=== PATIENT | female | born 1940 | race Caucasian/White ===

== ENCOUNTER → 2018-07-20 09:57 | Outpatient (CLI) | payer MEDICARE, OTHER, SELFPAY | PROVIDERS: PCP Internal Medicine; Visit Provider Internal Medicine | DX: M81.0 Age-related osteoporosis without current pathological fracture (principal); Z78.0 Asymptomatic menopausal state; G35 Multiple sclerosis; Z82.62 Family history of osteoporosis | CPT/HCPCS: 77080; 77081 ==

== ENCOUNTER 2018-09-03 12:15 | Inpatient (IN) | payer MEDICARE, OTHER, SELFPAY ==
[2018-09-03] VITALS (15 sets, daily range): BP systolic 97–131; BP diastolic 42–79; PULSE 72–81; RESP 13–20; TEMP 36.4–36.9; O2SAT 98–100; BMI 25.8
--- NOTE | 2018-09-03 13:47 | ED.DIZZY ---
HPI - Dizziness <Cathy Kuo PA-C - Last Filed: 09/03/18 21:51> General Chief Complaint: Dizziness Stated Complaint: RECOVERING FROM BROKEN HIP Time Seen by Provider: 09/03/18 13:46 Source: patient and family Mode of arrival: wheelchair Limitations: no limitations History of Present Illness HPI Narrative: This 78-year-old female comes ED at the urging of her family due to gradually worsening dizziness with standing and ambulating. She describes this as a presyncopal sensation. She denies any vertigo. She denies any recent illness, ears symptoms, fever or cough. She denies any chest pain, palpitations, or new dyspnea. She does have a history of heart murmur which she says has been worked up in the past. She states she will feel nauseated when she gets faint, otherwise denies any nausea, abdominal pain and has not had any vomiting. She states that she has had somewhat decreased appetite recently, not sure why, thinks her fluid intake is normal. She states that she also has pain and muscle spasm in her right thigh, this has been problematic since she had a hemiarthroplasty in June due to right hip fracture. She states she has started using her walker in the last 5 days instead of her cane and is having trouble getting to the restroom in time due to her incontinence. She does not think this necessarily contributes to the syncopal sensation other than her being in a hurry. She does not have any symptoms of dizziness when she has been lying or sitting for some time. She states that she has had some ongoing symptoms for at least weeks but worse in the last 4 or 5 days. Of note she has a history of iron deficiency anemia, states she had panendoscopy back in 2013 with no specific findings. She states this was corrected with iron, however she has been off that for about 3 months since her hip fracture in [place]. She does not know whether she was more anemic after surgery. She denies any vomiting blood or blood in the stools or other new complaints on systems review. She would like something for pain for her hip, states her PCP just prescribed [place] for her, has been taking Tylenol as needed at home. She notes that she has had gradually increasing right knee and thigh pain as well with the spasms, saw her orthopedist last week and no problem found with her hip. Related Data Home Medications Medication Instructions Recorded Confirmed ascorbic acid (vitamin C) [Vitamin 500 mg PO DAILY 09/03/18 09/03/18 C] cholecalciferol (vitamin D3) 1,000 unit PO DAILY 09/03/18 09/03/18 [Vitamin D3] chromium picolinate 400 mcg PO DAILY 09/03/18 09/03/18 coenzyme Q10 [CoQ-10] 100 mg PO DAILY 09/03/18 09/03/18 cyclosporine [Restasis] 1 drp EYE-BOTH BID 09/03/18 09/03/18 ferrous sulfate [Iron (ferrous 325 mg PO QTUTHSA 09/03/18 09/03/18 sulfate)] hydrocodone-acetaminophen [Prague] 1 tab PO Q6H PRN 09/03/18 09/03/18 omega-3 fatty acids-fish oil [Fish 1 cap PO BID 09/03/18 09/03/18 Oil] prasterone (dhea) [DHEA] 10 mg PO DAILY 09/03/18 09/03/18 progesterone micronized 140 mg PO QAM 09/03/18 09/03/18 ranitidine HCl 150 mg PO DAILY 09/03/18 09/03/18 selenium 100 mcg PO DAILY 09/03/18 09/03/18 thyroid (pork) [Marlow Thyroid] 16.25 mg PO DAILY 09/03/18 09/03/18 Allergies Allergy/AdvReac Type Severity Reaction Status Date / Time codeine Allergy Unknown UNK BY PT Verified 09/03/18 15:33 Penicillins Allergy Unknown UNK BY PT Verified 09/03/18 15:33 [id number] Reductase Allergy Unknown UNK BY PT Verified 09/03/18 15:33 Inhibitor Sulfa (Sulfonamide Allergy Unknown UNK BY PT Verified 09/03/18 15:33 Antibiotics) UNKNOWN ANTIBIOTIC Allergy Unknown Uncoded 08/09/17 11:47 Review of Systems <Cathy Kuo PA-C - Last Filed: 09/03/18 21:51> Review of Systems ROS Unobtainable: All systems reviewed & are unremarkable except as noted in HPI and below PFSH <Cathy Kuo PA-C - Last Filed: 09/03/18 21:51> Medical History Hiatal hernia (Acute) Heart murmur (Chronic) History of optic neuritis (Chronic) Hypothyroidism (Chronic) Incontinence of urine (Chronic) Iron (Fe) deficiency anemia (Chronic) Mitral regurgitation (Chronic) Multiple sclerosis (Chronic) Osteoporosis (Chronic) Surgical History Status post hip hemiarthroplasty (Resolved) Social History household members: spouse Smoking Status: Never smoker alcohol intake: current Family History Mother Stroke Social History household members: spouse Smoking Status: Never smoker alcohol intake: current Exam <Cathy Kuo PA-C - Last Filed: 09/03/18 21:51> Narrative Exam Narrative: GENERAL APPEARANCE: Patient sitting comfortably, in no distress. HEENT: PERRL, EOMI, conjunctivae pale, normal oropharynx NECK: Supple, no masses LUNGS: Clear to auscultation bilaterally. HEART: Rate and rhythm regular, III/ systolic murmur heard best in the upper sternum, normal S1 and S2, no S3 or S4. ABDOMEN: Soft, nontender, nondistended, bowel sounds present x 4 quadrants, no masses palpable, no hepatosplenomegaly. EXTREMITIES: No edema, no cyanosis, no calf tenderness DERMATOLOGIC: No exanthem NEUROLOGIC: Alert and oriented with normal speech and coordination MUSCULOSKELETAL: Tender over the right lateral hip and right knee joint line, no effusion Initial Vital Signs Initial Vital Signs: Vital Signs Temperature 97.9 F 09/03/18 12:30 Pulse Rate 72 09/03/18 12:30 Respiratory Rate 18 09/03/18 12:30 Blood Pressure 125/49 L 09/03/18 12:30 Pulse Oximetry 100 09/03/18 12:30 <Charlie Ponce DO - Last Filed: 09/04/18 07:10> Initial Vital Signs Initial Vital Signs: Vital Signs Temperature 97.9 F 09/03/18 12:30 Pulse Rate 72 09/03/18 12:30 Respiratory Rate 18 09/03/18 12:30 Blood Pressure 125/49 L 09/03/18 12:30 Pulse Oximetry 100 09/03/18 12:30 Course <Cathy Kuo PA-C - Last Filed: 09/03/18 21:51> Additional Information: Reviewed findings with attending physician Dr. Ponce who agrees with plan for transfusion and admission. Patient has had panendoscopy last 5 years ago, per history no bleeding source found (unable to see archived records). Relayed findings to Dr. Tamayo manager registration for surgery who is agreeable with consultation and plan for repeat scope as patient has guaiac-positive stool. Spoke with Dr. Olsen, manager registration for medicine who will admit to inpatient on telemetry. 2 units PRBCs have been ordered Orders Ordered: ED Orders 09/04/18 06:15 Iron Routine 09/04/18 06:18 Transferrin Routine 09/04/18 06:20 Ferritin Routine Iron Profile (w/ % Saturation) Routine 09/04/18 06:40 Basic Metabolic Panel Routine Complete Blood Count AUTO DIFF Routine Magnesium Routine 09/04/18 06:53 Thyroid Stimulating Hormone Routine Acetaminophen (Tylenol) 650 mg PO Q6HR PRN PRN Reason: As Needed for Fever/Mild Pain Last Admin: 09/03/18 22:28 Dose: 650 mg Sodium Chloride (Normal Saline 0.9%) 1,000 mls @ 75 mls/hr IV CONT ISABELLA Stop: 09/04/18 20:04 Morphine Sulfate (Morphine) 2 mg IV Q3H PRN PRN Reason: Pain, Moderate (4-6) Ondansetron HCl (Zofran Odt) 4 mg PO Q8HR PRN PRN Reason: Nausea And Vomiting Pantoprazole Sodium (Protonix) 40 mg IV BID ISABELLA Discontinued Medications Hydrocodone Bitart/Acetaminophen ([place] 5/325) 1 tab PO NOW ONE Stop: 09/03/18 14:07 Last Admin: 09/03/18 14:17 Dose: 1 tab Sodium Chloride (Normal Saline 0.9%) 1,000 mls @ 1,000 mls/hr IV BOLUS ONE Stop: 09/03/18 15:05 Last Infusion: 09/03/18 15:27 Dose: 0 mls/hr Admin: 09/03/18 14:17 Dose: 1,000 mls/hr Pantoprazole Sodium (Protonix) 80 mg IV NOW ONE Stop: 09/03/18 15:11 Last Admin: 09/03/18 15:33 Dose: 80 mg Vital Signs - 8 hr 09/03/18 23:47 09/03/18 23:52 09/03/18 23:59 Temperature 97.8 F 97.8 F Pulse Rate 78 79 Respiratory Rate 18 18 Blood Pressure 128/66 128/66 Pulse Oximetry 99 99 09/04/18 03:00 09/04/18 06:12 Temperature 97.6 F Pulse Rate 72 Respiratory Rate 16 Blood Pressure 120/64 Pulse Oximetry 99 99 <Charlie Ponce DO - Last Filed: 09/04/18 07:10> Orders Ordered: ED Orders 09/04/18 06:15 Iron Routine 09/04/18 06:18 Transferrin Routine 09/04/18 06:20 Ferritin Routine Iron Profile (w/ % Saturation) Routine 09/04/18 06:40 Basic Metabolic Panel Routine Complete Blood Count AUTO DIFF Routine Magnesium Routine 09/04/18 06:53 Thyroid Stimulating Hormone Routine Acetaminophen (Tylenol) 650 mg PO Q6HR PRN PRN Reason: As Needed for Fever/Mild Pain Last Admin: 09/03/18 22:28 Dose: 650 mg Sodium Chloride (Normal Saline 0.9%) 1,000 mls @ 75 mls/hr IV CONT ISABELLA Stop: 09/04/18 20:04 Morphine Sulfate (Morphine) 2 mg IV Q3H PRN PRN Reason: Pain, Moderate (4-6) Ondansetron HCl (Zofran Odt) 4 mg PO Q8HR PRN PRN Reason: Nausea And Vomiting Pantoprazole Sodium (Protonix) 40 mg IV BID ISABELLA Discontinued Medications Hydrocodone Bitart/Acetaminophen ([place] 5/325) 1 tab PO NOW ONE Stop: 09/03/18 14:07 Last Admin: 09/03/18 14:17 Dose: 1 tab Sodium Chloride (Normal Saline 0.9%) 1,000 mls @ 1,000 mls/hr IV BOLUS ONE Stop: 09/03/18 15:05 Last Infusion: 09/03/18 15:27 Dose: 0 mls/hr Admin: 09/03/18 14:17 Dose: 1,000 mls/hr Pantoprazole Sodium (Protonix) 80 mg IV NOW ONE Stop: 09/03/18 15:11 Last Admin: 09/03/18 15:33 Dose: 80 mg Vital Signs - 8 hr 09/03/18 23:47 09/03/18 23:52 09/03/18 23:59 Temperature 97.8 F 97.8 F Pulse Rate 78 79 Respiratory Rate 18 18 Blood Pressure 128/66 128/66 Pulse Oximetry 99 99 09/04/18 03:00 09/04/18 06:12 Temperature 97.6 F Pulse Rate 72 Respiratory Rate 16 Blood Pressure 120/64 Pulse Oximetry 99 99 MDM - Dizziness <Cathy Kuo PA-C - Last Filed: 09/03/18 21:51> Lab Data Attestation: I reviewed the patient's lab results. Result diagrams: 09/04/18 00:50 09/03/18 14:34 Lab Results 09/03/18 09/03/18 09/03/18 Range/Units 14:34 14:34 14:34 WBC 5.7 (4.5-11.0) X10^3/uL RBC 2.25 L (4.0-5.2) X10^6/uL Hgb 5.8 L* (12.0-16.0) g/dL Hct 18.9 L* (36-46) % MCV 84.0 (80-100) fL MCH 26.0 (26-34) PG MCHC 30.9 (30-36) % RDW 17.3 H (11.6-14.8) % Plt Count 229 (150-400) X10^3/uL Neut % (Auto) 73.6 (50-75) % Lymph % (Auto) 18.3 L (25-40) % [place] % (Auto) 6.7 (3-14) % Eos % (Auto) 0.3 L (2-4) % Baso % (Auto) 1.1 (0-2) % Neut # (Auto) 4200 (5425-0076) /uL Lymph # (Auto) 1000 L (0972-2696) /uL [place] # (Auto) 400 (0-900) /uL Eos # (Auto) 0 (0-450) /uL Baso # (Auto) 100 (0-100) /uL Sodium 138 (137-145) mmol/L Potassium 4.2 (3.4-5.1) mmol/L Chloride 110 H (98-107) mmol/L Carbon Dioxide 20 L (22-32) mmol/L BUN 25 H (7-17) mg/dL Creatinine 0.70 (0.52-1.04) mg/dL Estimated GFR > 60.0 (>60) mL/min BUN/Creatinine Ratio 35.7 H (6-22) Glucose 105 (80-110) mg/dL Calcium 8.8 (8.4-10.2) mg/dL Magnesium 1.8 (1.6-2.3) mg/dL Iron (37-170) ug/dL Transferrin (206-381) mg/dL Total Bilirubin 0.3 (0.2-1.3) mg/dL AST 24 (14-36) IU/L ALT 31 (9-52) IU/L Alkaline Phosphatase 67 (38-126) U/L Troponin I < 0.012 (0.01-0.034) ng/mL Total Protein 6.1 L (6.3-8.2) g/dL Albumin 3.6 (3.5-5.0) g/dL Globulin 2.5 (1.7-4.1) g/dL Albumin/Globulin Ratio 1.4 (1.0-2.8) Blood Type Antibody Screen Crossmatch 09/03/18 09/03/18 09/03/18 Range/Units 14:34 14:34 15:44 WBC (4.5-11.0) X10^3/uL RBC (4.0-5.2) X10^6/uL Hgb (12.0-16.0) g/dL Hct (36-46) % MCV (80-100) fL MCH (26-34) PG MCHC (30-36) % RDW (11.6-14.8) % Plt Count (150-400) X10^3/uL Neut % (Auto) (50-75) % Lymph % (Auto) (25-40) % [place] % (Auto) (3-14) % Eos % (Auto) (2-4) % Baso % (Auto) (0-2) % Neut # (Auto) (0498-7564) /uL Lymph # (Auto) (6256-4673) /uL [place] # (Auto) (0-900) /uL Eos # (Auto) (0-450) /uL Baso # (Auto) (0-100) /uL Sodium (137-145) mmol/L Potassium (3.4-5.1) mmol/L Chloride (98-107) mmol/L Carbon Dioxide (22-32) mmol/L BUN (7-17) mg/dL Creatinine (0.52-1.04) mg/dL Estimated GFR (>60) mL/min BUN/Creatinine Ratio (6-22) Glucose (80-110) mg/dL Calcium (8.4-10.2) mg/dL Magnesium (1.6-2.3) mg/dL Iron < 10 L (37-170) ug/dL Transferrin 274 (206-381) mg/dL Total Bilirubin (0.2-1.3) mg/dL AST (14-36) IU/L ALT (9-52) IU/L Alkaline Phosphatase (38-126) U/L Troponin I (0.01-0.034) ng/mL Total Protein (6.3-8.2) g/dL Albumin (3.5-5.0) g/dL Globulin (1.7-4.1) g/dL Albumin/Globulin Ratio (1.0-2.8) Blood Type B Positive Antibody Screen Negative Crossmatch See Detail 09/04/18 Range/Units 00:50 WBC (4.5-11.0) X10^3/uL RBC (4.0-5.2) X10^6/uL Hgb 7.9 L (12.0-16.0) g/dL Hct 24.2 L (36-46) % MCV (80-100) fL MCH (26-34) PG MCHC (30-36) % RDW (11.6-14.8) % Plt Count (150-400) X10^3/uL Neut % (Auto) (50-75) % Lymph % (Auto) (25-40) % [place] % (Auto) (3-14) % Eos % (Auto) (2-4) % Baso % (Auto) (0-2) % Neut # (Auto) (6379-6810) /uL Lymph # (Auto) (5716-5629) /uL [place] # (Auto) (0-900) /uL Eos # (Auto) (0-450) /uL Baso # (Auto) (0-100) /uL Sodium (137-145) mmol/L Potassium (3.4-5.1) mmol/L Chloride (98-107) mmol/L Carbon Dioxide (22-32) mmol/L BUN (7-17) mg/dL Creatinine (0.52-1.04) mg/dL Estimated GFR (>60) mL/min BUN/Creatinine Ratio (6-22) Glucose (80-110) mg/dL Calcium (8.4-10.2) mg/dL Magnesium (1.6-2.3) mg/dL Iron (37-170) ug/dL Transferrin (206-381) mg/dL Total Bilirubin (0.2-1.3) mg/dL AST (14-36) IU/L ALT (9-52) IU/L Alkaline Phosphatase (38-126) U/L Troponin I (0.01-0.034) ng/mL Total Protein (6.3-8.2) g/dL Albumin (3.5-5.0) g/dL Globulin (1.7-4.1) g/dL Albumin/Globulin Ratio (1.0-2.8) Blood Type Antibody Screen Crossmatch Imaging Data knee: Radiologist's impression: [place] [address] XRay Report Signed Patient: Marce Dillon BMR#: [id number] : 2Acct:[id number] Age/Sex: 78 / FDate of Service: 09/03/18 Loc: ED Accession Number: [id number] Procedure: XR knee RT 3V Ordering Provider: Cathy Kuo P.A-C PROCEDURE: XR KNEE RT 3V INDICATIONS: pain TECHNIQUE: 3 views of the knee were acquired. COMPARISON: None. FINDINGS: Bones: No fractures or dislocations. No suspicious bony lesions. Soft tissues: No joint effusion. No suspicious soft tissue calcifications. IMPRESSION: No acute radiographic findings. If there is continued pain, followup exam or additional imaging such as MRI or CT could be performed for further assessment. Dictated by: Tana Parish M.D. on 09/03/2018 at 14:35 Approved by: Tana Parish M.D. on 09/03/2018 at 14:35 ECG Data Attestation: I personally reviewed and interpreted this ECG as follows: (Normal sinus rhythm with rate 71, left axis deviation, occasional PVC, no acute changes) Prior ECG tracings: available for review (PCP 2013) <Charlie Ponce DO - Last Filed: 09/04/18 07:10> Lab Data Lab Results 09/03/18 09/03/18 09/03/18 Range/Units 14:34 14:34 14:34 WBC 5.7 (4.5-11.0) X10^3/uL RBC 2.25 L (4.0-5.2) X10^6/uL Hgb 5.8 L* (12.0-16.0) g/dL Hct 18.9 L* (36-46) % MCV 84.0 (80-100) fL MCH 26.0 (26-34) PG MCHC 30.9 (30-36) % RDW 17.3 H (11.6-14.8) % Plt Count 229 (150-400) X10^3/uL Neut % (Auto) 73.6 (50-75) % Lymph % (Auto) 18.3 L (25-40) % [place] % (Auto) 6.7 (3-14) % Eos % (Auto) 0.3 L (2-4) % Baso % (Auto) 1.1 (0-2) % Neut # (Auto) 4200 (0360-1748) /uL Lymph # (Auto) 1000 L (3505-4869) /uL [place] # (Auto) 400 (0-900) /uL Eos # (Auto) 0 (0-450) /uL Baso # (Auto) 100 (0-100) /uL Sodium 138 (137-145) mmol/L Potassium 4.2 (3.4-5.1) mmol/L Chloride 110 H (98-107) mmol/L Carbon Dioxide 20 L (22-32) mmol/L BUN 25 H (7-17) mg/dL Creatinine 0.70 (0.52-1.04) mg/dL Estimated GFR > 60.0 (>60) mL/min BUN/Creatinine Ratio 35.7 H (6-22) Glucose 105 (80-110) mg/dL Calcium 8.8 (8.4-10.2) mg/dL Magnesium 1.8 (1.6-2.3) mg/dL Iron (37-170) ug/dL Transferrin (206-381) mg/dL Total Bilirubin 0.3 (0.2-1.3) mg/dL AST 24 (14-36) IU/L ALT 31 (9-52) IU/L Alkaline Phosphatase 67 (38-126) U/L Troponin I < 0.012 (0.01-0.034) ng/mL Total Protein 6.1 L (6.3-8.2) g/dL Albumin 3.6 (3.5-5.0) g/dL Globulin 2.5 (1.7-4.1) g/dL Albumin/Globulin Ratio 1.4 (1.0-2.8) Blood Type Antibody Screen Crossmatch 09/03/18 09/03/18 09/03/18 Range/Units 14:34 14:34 15:44 WBC (4.5-11.0) X10^3/uL RBC (4.0-5.2) X10^6/uL Hgb (12.0-16.0) g/dL Hct (36-46) % MCV (80-100) fL MCH (26-34) PG MCHC (30-36) % RDW (11.6-14.8) % Plt Count (150-400) X10^3/uL Neut % (Auto) (50-75) % Lymph % (Auto) (25-40) % [place] % (Auto) (3-14) % Eos % (Auto) (2-4) % Baso % (Auto) (0-2) % Neut # (Auto) (3174-7470) /uL Lymph # (Auto) (9866-4827) /uL [place] # (Auto) (0-900) /uL Eos # (Auto) (0-450) /uL Baso # (Auto) (0-100) /uL Sodium (137-145) mmol/L Potassium (3.4-5.1) mmol/L Chloride (98-107) mmol/L Carbon Dioxide (22-32) mmol/L BUN (7-17) mg/dL Creatinine (0.52-1.04) mg/dL Estimated GFR (>60) mL/min BUN/Creatinine Ratio (6-22) Glucose (80-110) mg/dL Calcium (8.4-10.2) mg/dL Magnesium (1.6-2.3) mg/dL Iron < 10 L (37-170) ug/dL Transferrin 274 (206-381) mg/dL Total Bilirubin (0.2-1.3) mg/dL AST (14-36) IU/L ALT (9-52) IU/L Alkaline Phosphatase (38-126) U/L Troponin I (0.01-0.034) ng/mL Total Protein (6.3-8.2) g/dL Albumin (3.5-5.0) g/dL Globulin (1.7-4.1) g/dL Albumin/Globulin Ratio (1.0-2.8) Blood Type B Positive Antibody Screen Negative Crossmatch See Detail 09/04/18 Range/Units 00:50 WBC (4.5-11.0) X10^3/uL RBC (4.0-5.2) X10^6/uL Hgb 7.9 L (12.0-16.0) g/dL Hct 24.2 L (36-46) % MCV (80-100) fL MCH (26-34) PG MCHC (30-36) % RDW (11.6-14.8) % Plt Count (150-400) X10^3/uL Neut % (Auto) (50-75) % Lymph % (Auto) (25-40) % [place] % (Auto) (3-14) % Eos % (Auto) (2-4) % Baso % (Auto) (0-2) % Neut # (Auto) (5843-6947) /uL Lymph # (Auto) (7519-0854) /uL [place] # (Auto) (0-900) /uL Eos # (Auto) (0-450) /uL Baso # (Auto) (0-100) /uL Sodium (137-145) mmol/L Potassium (3.4-5.1) mmol/L Chloride (98-107) mmol/L Carbon Dioxide (22-32) mmol/L BUN (7-17) mg/dL Creatinine (0.52-1.04) mg/dL Estimated GFR (>60) mL/min BUN/Creatinine Ratio (6-22) Glucose (80-110) mg/dL Calcium (8.4-10.2) mg/dL Magnesium (1.6-2.3) mg/dL Iron (37-170) ug/dL Transferrin (206-381) mg/dL Total Bilirubin (0.2-1.3) mg/dL AST (14-36) IU/L ALT (9-52) IU/L Alkaline Phosphatase (38-126) U/L Troponin I (0.01-0.034) ng/mL Total Protein (6.3-8.2) g/dL Albumin (3.5-5.0) g/dL Globulin (1.7-4.1) g/dL Albumin/Globulin Ratio (1.0-2.8) Blood Type Antibody Screen Crossmatch Discharge Plan Departure Patient Disposition: Admitted As Inpatient Clinical Impression: GI (gastrointestinal bleed) Qualifiers: GI bleed type/associated pathology: unspecified gastrointestinal hemorrhage type Qualified Code(s): K92.2 - Gastrointestinal hemorrhage, unspecified Discharge Date/Time: 09/03/18 17:04 Interventions: ED Discharge Assessment Last Done: 09/03/18 17:04 Admit Date/Time: 09/03/18 16:17 Admit Provider: Leanne Olsen <Charlie Ponce DO - Last Filed: 09/04/18 07:10> [facility] Attending Esteban Attestation: I was available for consultation during this patient's emergency department encounter
--- NOTE | 2018-09-03 14:06 | DI.RAD.S_ITS ---
PROCEDURE: XR KNEE RT 3V INDICATIONS: pain TECHNIQUE: 3 views of the knee were acquired. COMPARISON: None. FINDINGS: Bones: No fractures or dislocations. No suspicious bony lesions. Soft tissues: No joint effusion. No suspicious soft tissue calcifications. IMPRESSION: No acute radiographic findings. If there is continued pain, followup exam or additional imaging such as MRI or CT could be performed for further assessment. Dictated by: Tana Parish M.D. on 09/03/2018 at 14:35 Approved by: Tana Parish M.D. on 09/03/2018 at 14:35
--- NOTE | 2018-09-03 14:06 | DI.RAD.S_ITS ---
PROCEDURE: XR CHEST 1V INDICATIONS: presyncope TECHNIQUE: One view of the chest was acquired. COMPARISON: [facility], CT, THORAX WITHOUT CONTRAST, 06/24/2016, 14:40. [facility], CR, CHEST 2 VIEW, 05/28/2010, 13:55. FINDINGS: Surgical changes and devices: None. Lungs and pleura: Lungs are clear. No pleural effusions or pneumothorax. Mediastinum: Mediastinal contours appear normal. Heart size is normal. There is a large hiatal hernia. Bones and chest wall: No suspicious bony lesions. There are multiple healed posterior right rib fractures. Overlying soft tissues appear unremarkable. IMPRESSION: No acute cardiopulmonary findings. Large hiatal hernia. Healed right rib fractures. Dictated by: Tana Parish M.D. on 09/03/2018 at 14:34 Approved by: Tana Parish M.D. on 09/03/2018 at 14:34
--- NOTE | 2018-09-03 14:12 | PC.NURSE ---
When stood patient up she stated that her right leg felt like it was locking up and then moments later her leg gave out and she sat down on bedside
[2018-09-03] MEDS: HYDROCODONE/ACET 5/325 TABLET 1 TAB PO (14:17)
[2018-09-03] MEDS: SODIUM CHLORIDE 0.9% 1,000 ML 1000 ML IV (14:17)
--- NOTE | 2018-09-03 14:20 | ED_ITS ---
HPI - Dizziness <Cathy Kuo PA-C - Last Filed: 09/03/18 21:51> General Chief Complaint: Dizziness Stated Complaint: RECOVERING FROM BROKEN HIP Time Seen by Provider: 09/03/18 13:46 Source: patient and family Mode of arrival: wheelchair Limitations: no limitations History of Present Illness HPI Narrative: This 78-year-old female comes ED at the urging of her family due to gradually worsening dizziness with standing and ambulating. She describes this as a presyncopal sensation. She denies any vertigo. She denies any recent illness, ears symptoms, fever or cough. She denies any chest pain, palpitations, or new dyspnea. She does have a history of heart murmur which she says has been worked up in the past. She states she will feel nauseated when she gets faint, otherwise denies any nausea, abdominal pain and has not had any vomiting. She states that she has had somewhat decreased appetite recently, not sure why, thinks her fluid intake is normal. She states that she also has pain and muscle spasm in her right thigh, this has been problematic since she had a hemiarthroplasty in June due to right hip fracture. She states she has started using her walker in the last 5 days instead of her cane and is having trouble getting to the restroom in time due to her incontinence. She does not think this necessarily contributes to the syncopal sensation other than her being in a hurry. She does not have any symptoms of dizziness when she has been lying or sitting for some time. She states that she has had some ongoing symptoms for at least weeks but worse in the last 4 or 5 days. Of note she has a history of iron deficiency anemia, states she had panendoscopy back in 2013 with no specific findings. She states this was corrected with iron, however she has been off that for about 3 months since her hip fracture in [place]. She does not know whether she was more anemic after surgery. She denies any vomiting blood or blood in the stools or other new complaints on systems review. She would like something for pain for her hip, states her PCP just prescribed [place] for her, has been taking Tylenol as needed at home. She notes that she has had gradually increasing right knee and thigh pain as well with the spasms, saw her orthopedist last week and no problem found with her hip. Related Data Home Medications Medication Instructions Recorded Confirmed ascorbic acid (vitamin C) [Vitamin 500 mg PO DAILY 09/03/18 09/03/18 C] cholecalciferol (vitamin D3) 1,000 unit PO DAILY 09/03/18 09/03/18 [Vitamin D3] chromium picolinate 400 mcg PO DAILY 09/03/18 09/03/18 coenzyme Q10 [CoQ-10] 100 mg PO DAILY 09/03/18 09/03/18 cyclosporine [Restasis] 1 drp EYE-BOTH BID 09/03/18 09/03/18 ferrous sulfate [Iron (ferrous 325 mg PO QTUTHSA 09/03/18 09/03/18 sulfate)] hydrocodone-acetaminophen [[place]] 1 tab PO Q6H PRN 09/03/18 09/03/18 omega-3 fatty acids-fish oil [Fish 1 cap PO BID 09/03/18 09/03/18 Oil] prasterone (dhea) [DHEA] 10 mg PO DAILY 09/03/18 09/03/18 progesterone micronized 140 mg PO QAM 09/03/18 09/03/18 ranitidine HCl 150 mg PO DAILY 09/03/18 09/03/18 selenium 100 mcg PO DAILY 09/03/18 09/03/18 thyroid (pork) [Whitman Thyroid] 16.25 mg PO DAILY 09/03/18 09/03/18 Allergies Allergy/AdvReac Type Severity Reaction Status Date / Time codeine Allergy Unknown UNK BY PT Verified 09/03/18 15:33 Penicillins Allergy Unknown UNK BY PT Verified 09/03/18 15:33 Fhrbqkg-Ixg-Byb Reductase Allergy Unknown UNK BY PT Verified 09/03/18 15:33 Inhibitor Sulfa (Sulfonamide Allergy Unknown UNK BY PT Verified 09/03/18 15:33 Antibiotics) UNKNOWN ANTIBIOTIC Allergy Unknown Uncoded 08/09/17 11:47 Review of Systems <Cathy Kuo PA-C - Last Filed: 09/03/18 21:51> Review of Systems ROS Unobtainable: All systems reviewed & are unremarkable except as noted in HPI and below PFSH <Cathy Kuo PA-C - Last Filed: 09/03/18 21:51> Medical History Hiatal hernia (Acute) Heart murmur (Chronic) History of optic neuritis (Chronic) Hypothyroidism (Chronic) Incontinence of urine (Chronic) Iron (Fe) deficiency anemia (Chronic) Mitral regurgitation (Chronic) Multiple sclerosis (Chronic) Osteoporosis (Chronic) Surgical History Status post hip hemiarthroplasty (Resolved) Social History household members: spouse Smoking Status: Never smoker alcohol intake: current Family History Mother Stroke Social History household members: spouse Smoking Status: Never smoker alcohol intake: current Exam <Cathy Kuo PA-C - Last Filed: 09/03/18 21:51> Narrative Exam Narrative: GENERAL APPEARANCE: Patient sitting comfortably, in no distress. HEENT: PERRL, EOMI, conjunctivae pale, normal oropharynx NECK: Supple, no masses LUNGS: Clear to auscultation bilaterally. HEART: Rate and rhythm regular, III/ systolic murmur heard best in the upper sternum, normal S1 and S2, no S3 or S4. ABDOMEN: Soft, nontender, nondistended, bowel sounds present x 4 quadrants, no masses palpable, no hepatosplenomegaly. EXTREMITIES: No edema, no cyanosis, no calf tenderness DERMATOLOGIC: No exanthem NEUROLOGIC: Alert and oriented with normal speech and coordination MUSCULOSKELETAL: Tender over the right lateral hip and right knee joint line, no effusion Initial Vital Signs Initial Vital Signs: Vital Signs Temperature 97.9 F 09/03/18 12:30 Pulse Rate 72 09/03/18 12:30 Respiratory Rate 18 09/03/18 12:30 Blood Pressure 125/49 L 09/03/18 12:30 Pulse Oximetry 100 09/03/18 12:30 <Charlie Ponce DO - Last Filed: 09/04/18 07:10> Initial Vital Signs Initial Vital Signs: Vital Signs Temperature 97.9 F 09/03/18 12:30 Pulse Rate 72 09/03/18 12:30 Respiratory Rate 18 09/03/18 12:30 Blood Pressure 125/49 L 09/03/18 12:30 Pulse Oximetry 100 09/03/18 12:30 Course <Cathy Kuo PA-C - Last Filed: 09/03/18 21:51> Additional Information: Reviewed findings with attending physician Dr. Ponce who agrees with plan for transfusion and admission. Patient has had panendoscopy last 5 years ago, per history no bleeding source found (unable to see archived records). Relayed findings to Dr. Tamayo consulting analyst for surgery who is agreeable with consultation and plan for repeat scope as patient has guaiac- positive stool. Spoke with Dr. Olsen, consulting analyst for medicine who will admit to inpatient on telemetry. 2 units PRBCs have been ordered Orders Ordered: ED Orders 09/04/18 06:15 Iron Routine 09/04/18 06:18 Transferrin Routine 09/04/18 06:20 Ferritin Routine Iron Profile (w/ % Saturation) Routine 09/04/18 06:40 Basic Metabolic Panel Routine Complete Blood Count AUTO DIFF Routine Magnesium Routine 09/04/18 06:53 Thyroid Stimulating Hormone Routine Acetaminophen (Tylenol) 650 mg PO Q6HR PRN PRN Reason: As Needed for Fever/Mild Pain Last Admin: 09/03/18 22:28 Dose: 650 mg Sodium Chloride (Normal Saline 0.9%) 1,000 mls @ 75 mls/hr IV CONT ISABELLA Stop: 09/04/18 20:04 Morphine Sulfate (Morphine) 2 mg IV Q3H PRN PRN Reason: Pain, Moderate (4-6) Ondansetron HCl (Zofran Odt) 4 mg PO Q8HR PRN PRN Reason: Nausea And Vomiting Pantoprazole Sodium (Protonix) 40 mg IV BID ISABELLA Discontinued Medications Hydrocodone Bitart/Acetaminophen ([place] 5/325) 1 tab PO NOW ONE Stop: 09/03/18 14:07 Last Admin: 09/03/18 14:17 Dose: 1 tab Sodium Chloride (Normal Saline 0.9%) 1,000 mls @ 1,000 mls/hr IV BOLUS ONE Stop: 09/03/18 15:05 Last Infusion: 09/03/18 15:27 Dose: 0 mls/hr Admin: 09/03/18 14:17 Dose: 1,000 mls/hr Pantoprazole Sodium (Protonix) 80 mg IV NOW ONE Stop: 09/03/18 15:11 Last Admin: 09/03/18 15:33 Dose: 80 mg Vital Signs - 8 hr 09/03/18 23:47 09/03/18 23:52 09/03/18 23:59 Temperature 97.8 F 97.8 F Pulse Rate 78 79 Respiratory Rate 18 18 Blood Pressure 128/66 128/66 Pulse Oximetry 99 99 09/04/18 03:00 09/04/18 06:12 Temperature 97.6 F Pulse Rate 72 Respiratory Rate 16 Blood Pressure 120/64 Pulse Oximetry 99 99 <Charlie Ponce DO - Last Filed: 09/04/18 07:10> Orders Ordered: ED Orders 09/04/18 06:15 Iron Routine 09/04/18 06:18 Transferrin Routine 09/04/18 06:20 Ferritin Routine Iron Profile (w/ % Saturation) Routine 09/04/18 06:40 Basic Metabolic Panel Routine Complete Blood Count AUTO DIFF Routine Magnesium Routine 09/04/18 06:53 Thyroid Stimulating Hormone Routine Acetaminophen (Tylenol) 650 mg PO Q6HR PRN PRN Reason: As Needed for Fever/Mild Pain Last Admin: 09/03/18 22:28 Dose: 650 mg Sodium Chloride (Normal Saline 0.9%) 1,000 mls @ 75 mls/hr IV CONT ISABELLA Stop: 09/04/18 20:04 Morphine Sulfate (Morphine) 2 mg IV Q3H PRN PRN Reason: Pain, Moderate (4-6) Ondansetron HCl (Zofran Odt) 4 mg PO Q8HR PRN PRN Reason: Nausea And Vomiting Pantoprazole Sodium (Protonix) 40 mg IV BID ISABELLA Discontinued Medications Hydrocodone Bitart/Acetaminophen ([place] 5/325) 1 tab PO NOW ONE Stop: 09/03/18 14:07 Last Admin: 09/03/18 14:17 Dose: 1 tab Sodium Chloride (Normal Saline 0.9%) 1,000 mls @ 1,000 mls/hr IV BOLUS ONE Stop: 09/03/18 15:05 Last Infusion: 09/03/18 15:27 Dose: 0 mls/hr Admin: 09/03/18 14:17 Dose: 1,000 mls/hr Pantoprazole Sodium (Protonix) 80 mg IV NOW ONE Stop: 09/03/18 15:11 Last Admin: 09/03/18 15:33 Dose: 80 mg Vital Signs - 8 hr 09/03/18 23:47 09/03/18 23:52 09/03/18 23:59 Temperature 97.8 F 97.8 F Pulse Rate 78 79 Respiratory Rate 18 18 Blood Pressure 128/66 128/66 Pulse Oximetry 99 99 09/04/18 03:00 09/04/18 06:12 Temperature 97.6 F Pulse Rate 72 Respiratory Rate 16 Blood Pressure 120/64 Pulse Oximetry 99 99 MDM - Dizziness <Cathy Kuo PA-C - Last Filed: 09/03/18 21:51> Lab Data Attestation: I reviewed the patient's lab results. Result diagrams: 09/04/18 00:50 09/03/18 14:34 Lab Results 09/03/18 09/03/18 09/03/18 Range/Units 14:34 14:34 14:34 WBC 5.7 (4.5-11.0) X10^3/uL RBC 2.25 L (4.0-5.2) X10^6/uL Hgb 5.8 L* (12.0-16.0) g/dL Hct 18.9 L* (36-46) % MCV 84.0 (80-100) fL MCH 26.0 (26-34) PG MCHC 30.9 (30-36) % RDW 17.3 H (11.6-14.8) % Plt Count 229 (150-400) X10^3/uL Neut % (Auto) 73.6 (50-75) % Lymph % (Auto) 18.3 L (25-40) % [place] % (Auto) 6.7 (3-14) % Eos % (Auto) 0.3 L (2-4) % Baso % (Auto) 1.1 (0-2) % Neut # (Auto) 4200 (4826-8695) /uL Lymph # (Auto) 1000 L (6143-0592) /uL [place] # (Auto) 400 (0-900) /uL Eos # (Auto) 0 (0-450) /uL Baso # (Auto) 100 (0-100) /uL Sodium 138 (137-145) mmol/L Potassium 4.2 (3.4-5.1) mmol/L Chloride 110 H (98-107) mmol/L Carbon Dioxide 20 L (22-32) mmol/L BUN 25 H (7-17) mg/dL Creatinine 0.70 (0.52-1.04) mg/dL Estimated GFR > 60.0 (>60) mL/min BUN/Creatinine Ratio 35.7 H (6-22) Glucose 105 (80-110) mg/dL Calcium 8.8 (8.4-10.2) mg/dL Magnesium 1.8 (1.6-2.3) mg/dL Iron (37-170) ug/dL Transferrin (206-381) mg/dL Total Bilirubin 0.3 (0.2-1.3) mg/dL AST 24 (14-36) IU/L ALT 31 (9-52) IU/L Alkaline Phosphatase 67 (38-126) U/L Troponin I < 0.012 (0.01-0.034) ng/mL Total Protein 6.1 L (6.3-8.2) g/dL Albumin 3.6 (3.5-5.0) g/dL Globulin 2.5 (1.7-4.1) g/dL Albumin/Globulin Ratio 1.4 (1.0-2.8) Blood Type Antibody Screen Crossmatch 09/03/18 09/03/18 09/03/18 Range/Units 14:34 14:34 15:44 WBC (4.5-11.0) X10^3/uL RBC (4.0-5.2) X10^6/uL Hgb (12.0-16.0) g/dL Hct (36-46) % MCV (80-100) fL MCH (26-34) PG MCHC (30-36) % RDW (11.6-14.8) % Plt Count (150-400) X10^3/uL Neut % (Auto) (50-75) % Lymph % (Auto) (25-40) % [place] % (Auto) (3-14) % Eos % (Auto) (2-4) % Baso % (Auto) (0-2) % Neut # (Auto) (6817-4225) /uL Lymph # (Auto) (6722-0815) /uL [place] # (Auto) (0-900) /uL Eos # (Auto) (0-450) /uL Baso # (Auto) (0-100) /uL Sodium (137-145) mmol/L Potassium (3.4-5.1) mmol/L Chloride (98-107) mmol/L Carbon Dioxide (22-32) mmol/L BUN (7-17) mg/dL Creatinine (0.52-1.04) mg/dL Estimated GFR (>60) mL/min BUN/Creatinine Ratio (6-22) Glucose (80-110) mg/dL Calcium (8.4-10.2) mg/dL Magnesium (1.6-2.3) mg/dL Iron < 10 L (37-170) ug/dL Transferrin 274 (206-381) mg/dL Total Bilirubin (0.2-1.3) mg/dL AST (14-36) IU/L ALT (9-52) IU/L Alkaline Phosphatase (38-126) U/L Troponin I (0.01-0.034) ng/mL Total Protein (6.3-8.2) g/dL Albumin (3.5-5.0) g/dL Globulin (1.7-4.1) g/dL Albumin/Globulin Ratio (1.0-2.8) Blood Type B Positive Antibody Screen Negative Crossmatch See Detail 09/04/18 Range/Units 00:50 WBC (4.5-11.0) X10^3/uL RBC (4.0-5.2) X10^6/uL Hgb 7.9 L (12.0-16.0) g/dL Hct 24.2 L (36-46) % MCV (80-100) fL MCH (26-34) PG MCHC (30-36) % RDW (11.6-14.8) % Plt Count (150-400) X10^3/uL Neut % (Auto) (50-75) % Lymph % (Auto) (25-40) % [place] % (Auto) (3-14) % Eos % (Auto) (2-4) % Baso % (Auto) (0-2) % Neut # (Auto) (2519-0983) /uL Lymph # (Auto) (8782-1351) /uL [place] # (Auto) (0-900) /uL Eos # (Auto) (0-450) /uL Baso # (Auto) (0-100) /uL Sodium (137-145) mmol/L Potassium (3.4-5.1) mmol/L Chloride (98-107) mmol/L Carbon Dioxide (22-32) mmol/L BUN (7-17) mg/dL Creatinine (0.52-1.04) mg/dL Estimated GFR (>60) mL/min BUN/Creatinine Ratio (6-22) Glucose (80-110) mg/dL Calcium (8.4-10.2) mg/dL Magnesium (1.6-2.3) mg/dL Iron (37-170) ug/dL Transferrin (206-381) mg/dL Total Bilirubin (0.2-1.3) mg/dL AST (14-36) IU/L ALT (9-52) IU/L Alkaline Phosphatase (38-126) U/L Troponin I (0.01-0.034) ng/mL Total Protein (6.3-8.2) g/dL Albumin (3.5-5.0) g/dL Globulin (1.7-4.1) g/dL Albumin/Globulin Ratio (1.0-2.8) Blood Type Antibody Screen Crossmatch Imaging Data knee: Radiologist's impression: [place] [address] XRay Report Signed Patient: Marce Dillon BMR#: [id number] : 2Acct:[id number] Age/Sex: 78 / FDate of Service: 09/03/18 Loc: ED Accession Number: [id number] Procedure: XR knee RT 3V Ordering Provider: Cathy Kuo P.A-C PROCEDURE: XR KNEE RT 3V INDICATIONS: pain TECHNIQUE: 3 views of the knee were acquired. COMPARISON: None. FINDINGS: Bones: No fractures or dislocations. No suspicious bony lesions. Soft tissues: No joint effusion. No suspicious soft tissue calcifications. IMPRESSION: No acute radiographic findings. If there is continued pain, followup exam or additional imaging such as MRI or CT could be performed for further assessment. Dictated by: Tana Parish M.D. on 09/03/2018 at 14:35 Approved by: Tana Parish M.D. on 09/03/2018 at 14:35 ECG Data Attestation: I personally reviewed and interpreted this ECG as follows: (Normal sinus rhythm with rate 71, left axis deviation, occasional PVC, no acute changes) Prior ECG tracings: available for review (PCP 2013) <Charlie Ponce DO - Last Filed: 09/04/18 07:10> Lab Data Lab Results 09/03/18 09/03/18 09/03/18 Range/Units 14:34 14:34 14:34 WBC 5.7 (4.5-11.0) X10^3/uL RBC 2.25 L (4.0-5.2) X10^6/uL Hgb 5.8 L* (12.0-16.0) g/dL Hct 18.9 L* (36-46) % MCV 84.0 (80-100) fL MCH 26.0 (26-34) PG MCHC 30.9 (30-36) % RDW 17.3 H (11.6-14.8) % Plt Count 229 (150-400) X10^3/uL Neut % (Auto) 73.6 (50-75) % Lymph % (Auto) 18.3 L (25-40) % [place] % (Auto) 6.7 (3-14) % Eos % (Auto) 0.3 L (2-4) % Baso % (Auto) 1.1 (0-2) % Neut # (Auto) 4200 (0910-3199) /uL Lymph # (Auto) 1000 L (1015-9995) /uL [place] # (Auto) 400 (0-900) /uL Eos # (Auto) 0 (0-450) /uL Baso # (Auto) 100 (0-100) /uL Sodium 138 (137-145) mmol/L Potassium 4.2 (3.4-5.1) mmol/L Chloride 110 H (98-107) mmol/L Carbon Dioxide 20 L (22-32) mmol/L BUN 25 H (7-17) mg/dL Creatinine 0.70 (0.52-1.04) mg/dL Estimated GFR > 60.0 (>60) mL/min BUN/Creatinine Ratio 35.7 H (6-22) Glucose 105 (80-110) mg/dL Calcium 8.8 (8.4-10.2) mg/dL Magnesium 1.8 (1.6-2.3) mg/dL Iron (37-170) ug/dL Transferrin (206-381) mg/dL Total Bilirubin 0.3 (0.2-1.3) mg/dL AST 24 (14-36) IU/L ALT 31 (9-52) IU/L Alkaline Phosphatase 67 (38-126) U/L Troponin I < 0.012 (0.01-0.034) ng/mL Total Protein 6.1 L (6.3-8.2) g/dL Albumin 3.6 (3.5-5.0) g/dL Globulin 2.5 (1.7-4.1) g/dL Albumin/Globulin Ratio 1.4 (1.0-2.8) Blood Type Antibody Screen Crossmatch 09/03/18 09/03/18 09/03/18 Range/Units 14:34 14:34 15:44 WBC (4.5-11.0) X10^3/uL RBC (4.0-5.2) X10^6/uL Hgb (12.0-16.0) g/dL Hct (36-46) % MCV (80-100) fL MCH (26-34) PG MCHC (30-36) % RDW (11.6-14.8) % Plt Count (150-400) X10^3/uL Neut % (Auto) (50-75) % Lymph % (Auto) (25-40) % [place] % (Auto) (3-14) % Eos % (Auto) (2-4) % Baso % (Auto) (0-2) % Neut # (Auto) (7621-7765) /uL Lymph # (Auto) (8212-1802) /uL [place] # (Auto) (0-900) /uL Eos # (Auto) (0-450) /uL Baso # (Auto) (0-100) /uL Sodium (137-145) mmol/L Potassium (3.4-5.1) mmol/L Chloride (98-107) mmol/L Carbon Dioxide (22-32) mmol/L BUN (7-17) mg/dL Creatinine (0.52-1.04) mg/dL Estimated GFR (>60) mL/min BUN/Creatinine Ratio (6-22) Glucose (80-110) mg/dL Calcium (8.4-10.2) mg/dL Magnesium (1.6-2.3) mg/dL Iron < 10 L (37-170) ug/dL Transferrin 274 (206-381) mg/dL Total Bilirubin (0.2-1.3) mg/dL AST (14-36) IU/L ALT (9-52) IU/L Alkaline Phosphatase (38-126) U/L Troponin I (0.01-0.034) ng/mL Total Protein (6.3-8.2) g/dL Albumin (3.5-5.0) g/dL Globulin (1.7-4.1) g/dL Albumin/Globulin Ratio (1.0-2.8) Blood Type B Positive Antibody Screen Negative Crossmatch See Detail 09/04/18 Range/Units 00:50 WBC (4.5-11.0) X10^3/uL RBC (4.0-5.2) X10^6/uL Hgb 7.9 L (12.0-16.0) g/dL Hct 24.2 L (36-46) % MCV (80-100) fL MCH (26-34) PG MCHC (30-36) % RDW (11.6-14.8) % Plt Count (150-400) X10^3/uL Neut % (Auto) (50-75) % Lymph % (Auto) (25-40) % [place] % (Auto) (3-14) % Eos % (Auto) (2-4) % Baso % (Auto) (0-2) % Neut # (Auto) (8348-4948) /uL Lymph # (Auto) (4791-0798) /uL [place] # (Auto) (0-900) /uL Eos # (Auto) (0-450) /uL Baso # (Auto) (0-100) /uL Sodium (137-145) mmol/L Potassium (3.4-5.1) mmol/L Chloride (98-107) mmol/L Carbon Dioxide (22-32) mmol/L BUN (7-17) mg/dL Creatinine (0.52-1.04) mg/dL Estimated GFR (>60) mL/min BUN/Creatinine Ratio (6-22) Glucose (80-110) mg/dL Calcium (8.4-10.2) mg/dL Magnesium (1.6-2.3) mg/dL Iron (37-170) ug/dL Transferrin (206-381) mg/dL Total Bilirubin (0.2-1.3) mg/dL AST (14-36) IU/L ALT (9-52) IU/L Alkaline Phosphatase (38-126) U/L Troponin I (0.01-0.034) ng/mL Total Protein (6.3-8.2) g/dL Albumin (3.5-5.0) g/dL Globulin (1.7-4.1) g/dL Albumin/Globulin Ratio (1.0-2.8) Blood Type Antibody Screen Crossmatch Discharge Plan Departure Patient Disposition: Admitted As Inpatient Clinical Impression: GI (gastrointestinal bleed) Qualifiers: GI bleed type/associated pathology: unspecified gastrointestinal hemorrhage type Qualified Code(s): K92.2 - Gastrointestinal hemorrhage, unspecified Discharge Date/Time: 09/03/18 17:04 Interventions: ED Discharge Assessment Last Done: 09/03/18 17:04 Admit Date/Time: 09/03/18 16:17 Admit Provider: Leanne Olsen <Charlie Ponce DO - Last Filed: 09/04/18 07:10> [facility] Attending Esteban Attestation: I was available for consultation during this patient's emergency department encounter
[2018-09-03 14:42] LABS: Add Manual Diff / Slide Review NO; Basophils Absolute Auto 100 /uL (0-100); Basophils Percent Auto 1.1 % (0-2); Eosinophils Absolute Auto 0 /uL (0-450); Eosinophils Percent Auto 0.3 % (2-4); Lymphocytes Absolute Auto 1000 /uL (1100-4500); Lymphocytes Percent Auto 18.3 % (25-40); Mean Corpuscular HGB Conc 30.9 % (30-36); Monocytes Absolute Auto 400 /uL (0-900); Monocytes Percent Auto 6.7 % (3-14); Neutrophils Absolute Auto 4200 /uL (1500-7000); Neutrophils Percent Auto 73.6 % (50-75); Platelet Count 229 X10^3/uL (150-400); Red Blood Cell Count 2.25 X10^6/uL (4.0-5.2); Red Cell Distribution Width 17.3 % (11.6-14.8); White Blood Cell Count 5.7 X10^3/uL (4.5-11.0)
[2018-09-03 14:47] LABS: Hematocrit 18.9 % (36-46); Hemoglobin 5.8 g/dL (12.0-16.0)
[2018-09-03 14:55] LABS: Alanine Aminotransferase 31 IU/L (9-52); Albumin 3.6 g/dL (3.5-5.0); Albumin Globulin Ratio 1.4 (1.0-2.8); Alkaline Phosphatase 67 U/L (38-126); Aspartate Aminotransferase 24 IU/L (14-36); BUN Creatinine Ratio 35.7 (6-22); Bilirubin Total 0.3 mg/dL (0.2-1.3); Blood Urea Nitrogen 25 mg/dL (7-17); Calcium 8.8 mg/dL (8.4-10.2); Carbon Dioxide 20 mmol/L (22-32); Chloride 110 mmol/L (98-107); Estimated Glomerular Filt Rate > 60.0 mL/min (>60); Globulin 2.5 g/dL (1.7-4.1); Glucose 105 mg/dL (80-110); HEMOLYSIS < 15 (0-50); Magnesium 1.8 mg/dL (1.6-2.3); Potassium 4.2 mmol/L (3.4-5.1); Sodium 138 mmol/L (137-145); Total Protein 6.1 g/dL (6.3-8.2)
[2018-09-03 15:06] LABS: Troponin I < 0.012 ng/mL (0.01-0.034)
--- NOTE | 2018-09-03 15:30 | PC.NURSE ---
type/screen drawn
--- NOTE | 2018-09-03 15:30 | PC.NURSE ---
blood consent signed
[2018-09-03] MEDS: PANTOPRAZOLE 40 MG VIAL 80 MG IV (15:33)
--- NOTE | 2018-09-03 16:35 | PC.NURSE ---
attempted to give report,staff will let Vivian know to call back
--- NOTE | 2018-09-03 16:45 | PM.CN ---
History of Present Illness Date Patient Seen: 09/03/18 Time Patient Seen: 16:47 Chief complaint: RECOVERING FROM BROKEN HIP Narrative: 78-year-old white female patient who 3 months ago had a feliberto. arthroplasty right hip. Over the last 4-5 days she has been complaining of severe nausea with no vomiting. She does not describe abdominal pain. she has profound weakness and came to the emergency department where she was discovered to have a hemoglobin of 5.8. She has a history of iron deficiency anemia. She is not aware that she is having melena or hematochezia. She does have guaiac-positive stool in the emergency department. [facility] Medical History Heart murmur (Chronic) History of optic neuritis (Chronic) Hypothyroidism (Chronic) Incontinence of urine (Chronic) Iron (Fe) deficiency anemia (Chronic) Mitral regurgitation (Chronic) Multiple sclerosis (Chronic) Osteoporosis (Chronic) Surgical History Status post hip hemiarthroplasty (Resolved) Social History (Updated 09/03/18 @ 14:18 by Cathy Kuo PA-C) Smoking Status: Never smoker Social History Smoking Status: Never smoker Meds Home Medications Medication Instructions Recorded Confirmed Type No Known Home Medications 09/03/18 09/03/18 History Allergies Allergy/AdvReac Type Severity Reaction Status Date / Time codeine Allergy Unknown UNK BY PT Verified 09/03/18 15:33 Penicillins Allergy Unknown UNK BY PT Verified 09/03/18 15:33 Eboktox-Hzf-Tzr Reductase Allergy Unknown UNK BY PT Verified 09/03/18 15:33 Inhibitor Sulfa (Sulfonamide Allergy Unknown UNK BY PT Verified 09/03/18 15:33 Antibiotics) UNKNOWN ANTIBIOTIC Allergy Unknown Uncoded 08/09/17 11:47 Exam Vital Signs (past 8 hours): - 09/03/18 12:30 09/03/18 12:42 09/03/18 13:00 Temperature 97.9 F 97.5 F L Pulse Rate 72 77 75 Pulse Rate [Orthostatic Lying] Pulse Rate [Orthostatic Sitting] Pulse Rate [Orthostatic Standing] Respiratory Rate 18 13 19 Blood Pressure 125/49 L Blood Pressure [Orthostatic Lying] Blood Pressure [Orthostatic Sitting] Blood Pressure [Orthostatic Standing] Blood Pressure [Right Arm] 125/49 L 97/79 Pulse Oximetry 100 99 100 09/03/18 14:10 09/03/18 14:11 Temperature Pulse Rate Pulse Rate [Orthostatic Lying] 75 Pulse Rate [Orthostatic Sitting] 77 Pulse Rate [Orthostatic Standing] 80 Respiratory Rate Blood Pressure Blood Pressure [Orthostatic Lying] 121/51 L Blood Pressure [Orthostatic Sitting] 109/63 Blood Pressure [Orthostatic Standing] 116/42 L Blood Pressure [Right Arm] Pulse Oximetry Oxygen Delivery Method Room Air Narrative Exam Narrative: Patient is alert pleasant and well oriented. she has stable vital signs and does not have tachycardia. She has clear lung mora. Heart regular rhythm with no murmur. Abdominal exam reveals no upper abdominal tenderness or rigidity. She does have some right lower quadrant tenderness. I do not palpate any masses. Rectal exam was done in the emergency room by the attending nurse practitioner. No masses are reported. Objective Labs Result Diagrams: 09/03/18 14:34 09/03/18 14:34 Labs: Laboratory Results - last 24 hr 09/03/18 09/03/18 09/03/18 14:34 14:34 14:34 WBC 5.7 RBC 2.25 L Hgb 5.8 L* Hct 18.9 L* MCV 84.0 MCH 26.0 MCHC 30.9 RDW 17.3 H Plt Count 229 Neut % (Auto) 73.6 Lymph % (Auto) 18.3 L [place] % (Auto) 6.7 Eos % (Auto) 0.3 L Baso % (Auto) 1.1 Neut # (Auto) 4200 Lymph # (Auto) 1000 L [place] # (Auto) 400 Eos # (Auto) 0 Baso # (Auto) 100 Sodium 138 Potassium 4.2 Chloride 110 H Carbon Dioxide 20 L BUN 25 H Creatinine 0.70 Estimated GFR > 60.0 BUN/Creatinine Ratio 35.7 H Glucose 105 Calcium 8.8 Magnesium 1.8 Total Bilirubin 0.3 AST 24 ALT 31 Alkaline Phosphatase 67 Troponin I < 0.012 Total Protein 6.1 L Albumin 3.6 Globulin 2.5 Albumin/Globulin Ratio 1.4 Blood Type Antibody Screen Crossmatch 09/03/18 15:44 WBC RBC Hgb Hct MCV MCH MCHC RDW Plt Count Neut % (Auto) Lymph % (Auto) Mccormick % (Auto) Eos % (Auto) Baso % (Auto) Neut # (Auto) Lymph # (Auto) Mccormick # (Auto) Eos # (Auto) Baso # (Auto) Sodium Potassium Chloride Carbon Dioxide BUN Creatinine Estimated GFR BUN/Creatinine Ratio Glucose Calcium Magnesium Total Bilirubin AST ALT Alkaline Phosphatase Troponin I Total Protein Albumin Globulin Albumin/Globulin Ratio Blood Type B Positive Antibody Screen Negative Crossmatch See Detail Assessment & Plan Assessment & Plan narrative: Patient has profound anemia. 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 She is to receive 2 units of packed cells tonight. I have scheduled the patient for upper endoscopy tomorrow. If that is negative then she would be a candidate for colonoscopy. She does have a history of iron deficiency anemia for years and had upper and lower endoscopy several years ago in this hospital. Those reports are not available. The patient is unaware of her findings at that time but was told no significant GI process was identified. We will recheck her hemoglobin in the morning after transfusion and if it is safe will proceed with upper endoscopy tomorrow.
--- NOTE | 2018-09-03 16:48 | P.CONS_ITS ---
History of Present Illness Date Patient Seen: 09/03/18 Time Patient Seen: 16:47 Chief complaint: RECOVERING FROM BROKEN HIP Narrative: 78-year-old white female patient who 3 months ago had a feliberto. arthroplasty right hip. Over the last 4-5 days she has been complaining of severe nausea with no vomiting. She does not describe abdominal pain. she has profound weakness and came to the emergency department where she was discovered to have a hemoglobin of 5.8. She has a history of iron deficiency anemia. She is not aware that she is having melena or hematochezia. She does have guaiac- positive stool in the emergency department. [facility] Medical History Heart murmur (Chronic) History of optic neuritis (Chronic) Hypothyroidism (Chronic) Incontinence of urine (Chronic) Iron (Fe) deficiency anemia (Chronic) Mitral regurgitation (Chronic) Multiple sclerosis (Chronic) Osteoporosis (Chronic) Surgical History Status post hip hemiarthroplasty (Resolved) Social History (Updated 09/03/18 @ 14:18 by Cathy Kuo PA-C) Smoking Status: Never smoker Social History Smoking Status: Never smoker Meds Home Medications Medication Instructions Recorded Confirmed Type No Known Home Medications 09/03/18 09/03/18 History Allergies Allergy/AdvReac Type Severity Reaction Status Date / Time codeine Allergy Unknown UNK BY PT Verified 09/03/18 15:33 Penicillins Allergy Unknown UNK BY PT Verified 09/03/18 15:33 Whhmdgl-Xee-Lrz Reductase Allergy Unknown UNK BY PT Verified 09/03/18 15:33 Inhibitor Sulfa (Sulfonamide Allergy Unknown UNK BY PT Verified 09/03/18 15:33 Antibiotics) UNKNOWN ANTIBIOTIC Allergy Unknown Uncoded 08/09/17 11:47 Exam Vital Signs (past 8 hours): - 09/03/18 12:30 09/03/18 12:42 09/03/18 13:00 Temperature 97.9 F 97.5 F L Pulse Rate 72 77 75 Pulse Rate [Orthostatic Lying] Pulse Rate [Orthostatic Sitting] Pulse Rate [Orthostatic Standing] Respiratory Rate 18 13 19 Blood Pressure 125/49 L Blood Pressure [Orthostatic Lying] Blood Pressure [Orthostatic Sitting] Blood Pressure [Orthostatic Standing] Blood Pressure [Right Arm] 125/49 L 97/79 Pulse Oximetry 100 99 100 09/03/18 14:10 09/03/18 14:11 Temperature Pulse Rate Pulse Rate [Orthostatic Lying] 75 Pulse Rate [Orthostatic Sitting] 77 Pulse Rate [Orthostatic Standing] 80 Respiratory Rate Blood Pressure Blood Pressure [Orthostatic Lying] 121/51 L Blood Pressure [Orthostatic Sitting] 109/63 Blood Pressure [Orthostatic Standing] 116/42 L Blood Pressure [Right Arm] Pulse Oximetry Oxygen Delivery Method Room Air Narrative Exam Narrative: Patient is alert pleasant and well oriented. she has stable vital signs and does not have tachycardia. She has clear lung mora. Heart regular rhythm with no murmur. Abdominal exam reveals no upper abdominal tenderness or rigidity. She does have some right lower quadrant tenderness. I do not palpate any masses. Rectal exam was done in the emergency room by the attending nurse practitioner. No masses are reported. Objective Labs Result Diagrams: 09/03/18 14:34 09/03/18 14:34 Labs: Laboratory Results - last 24 hr 09/03/18 09/03/18 09/03/18 14:34 14:34 14:34 WBC 5.7 RBC 2.25 L Hgb 5.8 L* Hct 18.9 L* MCV 84.0 MCH 26.0 MCHC 30.9 RDW 17.3 H Plt Count 229 Neut % (Auto) 73.6 Lymph % (Auto) 18.3 L [place] % (Auto) 6.7 Eos % (Auto) 0.3 L Baso % (Auto) 1.1 Neut # (Auto) 4200 Lymph # (Auto) 1000 L [place] # (Auto) 400 Eos # (Auto) 0 Baso # (Auto) 100 Sodium 138 Potassium 4.2 Chloride 110 H Carbon Dioxide 20 L BUN 25 H Creatinine 0.70 Estimated GFR > 60.0 BUN/Creatinine Ratio 35.7 H Glucose 105 Calcium 8.8 Magnesium 1.8 Total Bilirubin 0.3 AST 24 ALT 31 Alkaline Phosphatase 67 Troponin I < 0.012 Total Protein 6.1 L Albumin 3.6 Globulin 2.5 Albumin/Globulin Ratio 1.4 Blood Type Antibody Screen Crossmatch 09/03/18 15:44 WBC RBC Hgb Hct MCV MCH MCHC RDW Plt Count Neut % (Auto) Lymph % (Auto) [place] % (Auto) Eos % (Auto) Baso % (Auto) Neut # (Auto) Lymph # (Auto) [place] # (Auto) Eos # (Auto) Baso # (Auto) Sodium Potassium Chloride Carbon Dioxide BUN Creatinine Estimated GFR BUN/Creatinine Ratio Glucose Calcium Magnesium Total Bilirubin AST ALT Alkaline Phosphatase Troponin I Total Protein Albumin Globulin Albumin/Globulin Ratio Blood Type B Positive Antibody Screen Negative Crossmatch See Detail Assessment & Plan Assessment & Plan narrative: Patient has profound anemia. She is being admitted to the hospital by the professor of theology. She is to receive 2 units of packed cells tonight. I have scheduled the patient for upper endoscopy tomorrow. If that is negative then she would be a candidate for colonoscopy. She does have a history of iron deficiency anemia for years and had upper and lower endoscopy several years ago in this hospital. Those reports are not available. The patient is unaware of her findings at that time but was told no significant GI process was identified. We will recheck her hemoglobin in the morning after transfusion and if it is safe will proceed with upper endoscopy tomorrow.
--- NOTE | 2018-09-03 22:17 | PC.ADMIT ---
Admission Note: pt arrived to floor at 1710. new IV started. blood started transfusing. Pt tolerating. family at bedside. went over med but doesn't know them all entirely. Pt taking hormone therapy, two creams and one oral med. states that it is ok if she doesnt get those here. will continue to monitor. Pt arrived to floor. oriented to room and hospital procedures. Pt given call fraser. ice chips. not yet in to see pt. Pt uses call fraser. sba with FWW to br. did well walking. has a leg jerk in her right leg. that reports is from after her fall/and hip replacement. Pt states replacement happened down in [place], she was on vacation and was about to get into the car to go to airport and fell. Pt and brother in room. Pt good historian. pt seems to need some extra direction with medical terms and info. discussed transfusion and reaction possibilities. Pt cooperate and verbalized understanding. will continue to monitor.
[2018-09-03] MEDS: ACETAMINOPHEN 325 MG TABLET 650 MG PO (22:28)
--- NOTE | 2018-09-03 22:47 | P.HP_ITS ---
History of Present Illness Date Patient Seen: 09/03/18 Time Patient Seen: 22:47 Chief complaint: RECOVERING FROM BROKEN HIP Narrative: The patient is a 78-year-old female who presented to the ED with profound weakness. Associated symptoms included dizziness, lightheadedness, exertional dyspnea, nausea, and diaphoresis. Symptoms noted 7- 10 days ago. They are exacerbated with activity. Patient denies chest pain, palpitations, hemoptysis, hematemesis and melena. No pressed history of a GI bleed. She is known to have iron deficiency anemia. The patient has had and EGD on 08/03/2015 that revealed esophagitis, antral gastritis with an, large hiatal hernia, diverticulosis, and internal hemorrhoids. Biopsies were taken which revealed Ewing's esophagus. Denies history of prior GI bleed. She stating that in recent weeks she was recently placed on Eliquis for antico agulation; however, this medication is not part of her med list. She is unable to tell me who prescribed it. In she is not sure if she has been taking it. Denies use of NSAIDs. Her baseline hemoglobin is not known. Records available to evaluate baseline hemoglobin level are inconsistent. In March of 2016 and June of 2016 HGB ranged between 15 and 16 g/dL. Patient was found to be guaiac-positive in the ED. Hemoglobin of on presentation was 5.8. Red blood cell transfusion initiated in the ED, with the goal to transfuse 2 units overnight. Three months ago patient traveled to [place] for a family event. At time of travel she sustained a ground level mechanical fall landing onto her right hip, consequently she required right hemiarthroplasty. She was in the hospital for less than a week and thereafter was transferred to a rehabilitation facility for 2-3 weeks. Patient reports being on iron prior to her departure to [place]; however, the supplement was for gotten at home and she has not been on it since that time. The medications are not managed by the patient but by her . In addition, after her feliberto-arthroplasty patient was placed on a short course of anticoagulation (unable to recall the med), which she finished mid June. Additional past medical history than the 1 noted below includes Cheatham's palsy, Ewing's esophagus, GERD with gastritis and hiatal hernia Patient History Medical History Hiatal hernia (Acute) Heart murmur (Chronic) History of optic neuritis (Chronic) Hypothyroidism (Chronic) Incontinence of urine (Chronic) Iron (Fe) deficiency anemia (Chronic) Mitral regurgitation (Chronic) Multiple sclerosis (Chronic) Osteoporosis (Chronic) Surgical History Status post hip hemiarthroplasty (Resolved) Social History household members: spouse Smoking Status: Never smoker alcohol intake: current Family & Social History Family History Mother Stroke Social History: household members spouse Prior Living Arrangements House Safety & Behavioral: Feels Safe in Current Yes Environment Been Physically Hurt or No Threatened By a Person Suicidal Ideation Description None Tobacco & Substance use: Smoking Status Never smoker alcohol intake current alcohol intake frequency holiday/special occasion Substance Use Type does not use Meds Home Medications Medication Instructions Recorded Confirmed Type ascorbic acid (vitamin C) [Vitamin 500 mg PO DAILY 09/03/18 09/03/18 History C] cholecalciferol (vitamin D3) 1,000 unit PO DAILY 09/03/18 09/03/18 History [Vitamin D3] chromium picolinate 400 mcg PO DAILY 09/03/18 09/03/18 History coenzyme Q10 [CoQ-10] 100 mg PO DAILY 09/03/18 09/03/18 History cyclosporine [Restasis] 1 drp EYE-BOTH BID 09/03/18 09/03/18 History ferrous sulfate [Iron (ferrous 325 mg PO QTUTHSA 09/03/18 09/03/18 History sulfate)] hydrocodone-acetaminophen [[place]] 1 tab PO Q6H PRN 09/03/18 09/03/18 History omega-3 fatty acids-fish oil [Fish 1 cap PO BID 09/03/18 09/03/18 History Oil] prasterone (dhea) [DHEA] 10 mg PO DAILY 09/03/18 09/03/18 History progesterone micronized 140 mg PO QAM 09/03/18 09/03/18 History ranitidine HCl 150 mg PO DAILY 09/03/18 09/03/18 History selenium 100 mcg PO DAILY 09/03/18 09/03/18 History thyroid (pork) [[place] Thyroid] 16.25 mg PO DAILY 09/03/18 09/03/18 History Allergies Allergy/AdvReac Type Severity Reaction Status Date / Time codeine Allergy Unknown UNK BY PT Verified 09/03/18 15:33 Penicillins Allergy Unknown UNK BY PT Verified 09/03/18 15:33 Iqipcsc-Psk-Thu Reductase Allergy Unknown UNK BY PT Verified 09/03/18 15:33 Inhibitor Sulfa (Sulfonamide Allergy Unknown UNK BY PT Verified 09/03/18 15:33 Antibiotics) UNKNOWN ANTIBIOTIC Allergy Unknown Uncoded 08/09/17 11:47 Review of Systems Review of Systems All systems reviewed & are unremarkable except as noted in HPI and below Exam Vital Signs (past 8 hours): - 09/03/18 17:10 09/03/18 17:43 09/03/18 17:58 Temperature 97.8 F 97.8 F 98.2 F Pulse Rate 78 78 79 Respiratory Rate 19 18 18 Blood Pressure 131/54 L 131/54 L 112/62 Pulse Oximetry 98 09/03/18 20:14 09/03/18 20:18 09/03/18 20:28 Temperature 98.1 F 98.1 F Pulse Rate 81 81 Respiratory Rate 20 20 Blood Pressure 131/65 131/65 Pulse Oximetry 99 09/03/18 20:35 Temperature 98.4 F Pulse Rate 78 Respiratory Rate 20 Blood Pressure 122/62 Pulse Oximetry Oxygen Delivery Method Room Air Narrative Exam Narrative: Constitutional: NAD, and missed the blood transfusion Neurologic: AOx3, no focal neurological deficits, right sided facial paralysis Head: NC, AT Eyes: PERRL, EOMI, no vision in left eye Ears: external ears normal, no otorrhea Nose: external nose normal, no rhinorrhea or epistaxis Throat: MMM, oropharynx w/o exudate Neck: no masses, lymphadenopathy, or JVD Chest / Respiratory: equal chest rise, unlabored respiratory effort, no dyspnea or tachypnea at rest, diminished Heart / CV: S1S2, murmur present, occasional ectopic beats Abdomen / GI: round, NT, ND, + BS, no organomegaly : no suprapubic tenderness, no CVA Peripheral / Vascular: warm to touch, DP and PT pulses palpable, no Musc: Diminished ROM of right hip. Tenderness with palpation of the right hip and right inner thigh. Skin: Pale in appearance no wounds or overt ecchymoses Objective Labs Result Diagrams: 09/04/18 00:50 09/03/18 14:34 Labs: Laboratory Results - last 24 hr 09/03/18 09/03/18 09/03/18 14:34 14:34 14:34 WBC 5.7 RBC 2.25 L Hgb 5.8 L* Hct 18.9 L* MCV 84.0 MCH 26.0 MCHC 30.9 RDW 17.3 H Plt Count 229 Neut % (Auto) 73.6 Lymph % (Auto) 18.3 L [place] % (Auto) 6.7 Eos % (Auto) 0.3 L Baso % (Auto) 1.1 Neut # (Auto) 4200 Lymph # (Auto) 1000 L [place] # (Auto) 400 Eos # (Auto) 0 Baso # (Auto) 100 Sodium 138 Potassium 4.2 Chloride 110 H Carbon Dioxide 20 L BUN 25 H Creatinine 0.70 Estimated GFR > 60.0 BUN/Creatinine Ratio 35.7 H Glucose 105 Calcium 8.8 Magnesium 1.8 Total Bilirubin 0.3 AST 24 ALT 31 Alkaline Phosphatase 67 Troponin I < 0.012 Total Protein 6.1 L Albumin 3.6 Globulin 2.5 Albumin/Globulin Ratio 1.4 Blood Type Antibody Screen Crossmatch 09/03/18 15:44 WBC RBC Hgb Hct MCV MCH MCHC RDW Plt Count Neut % (Auto) Lymph % (Auto) [place] % (Auto) Eos % (Auto) Baso % (Auto) Neut # (Auto) Lymph # (Auto) [place] # (Auto) Eos # (Auto) Baso # (Auto) Sodium Potassium Chloride Carbon Dioxide BUN Creatinine Estimated GFR BUN/Creatinine Ratio Glucose Calcium Magnesium Total Bilirubin AST ALT Alkaline Phosphatase Troponin I Total Protein Albumin Globulin Albumin/Globulin Ratio Blood Type B Positive Antibody Screen Negative Crossmatch See Detail Assessment & Plan Assessment & Plan narrative: Anemia secondary to blood loss, acute, present on admission, unstable Prior history of esophagitis, gastritis, large hiatal hernia, and Ewing's esophagus - hemoglobin on presentation is 5.8, profound anemia, symptomatic - guaiac positive, but no active melena or hematochezia - general surgery is consulted, Dr. Tamayo, who has already seen the patient; EGD scheduled for a.m. - NPO for EGD - 2 units packed red blood cells tonight - repeat hemoglobin after transfusion - Start Protonix IV 40 mg b.i.d. Hypovolemia, acute, present on admission, active Suspected to be multifactorial... Acute blood loss and diminished appetite - receiving 2 units of packed red blood cells - will start on gentle hydration in the morning Iron deficiency anemia, chronic, present on admission, active - iron studies, will at to initial lab drawn on 09/03/2018 Pain, right hip,acute, present on admission, active Associated with recent right hip fracture, status post feliberto-arthroplasty -Tylenol 650 mg q.6 hours as needed pain -morphine 2 mg q.3 hours as needed pain, allergy to codeine is noted, patient has had [place] and tolerated well in the ED Hypothyroidism, chronic condition, present on admission, active - check TSH - holding for now, NPO for EGD in a.m., resume thereafter Multiple sclerosis, chronic condition, present on admission, stable - monitor for signs symptoms of an acute flare Code status discussed with patient. Wishes to be full code. is the designated DPOA. DVT prophylaxis with SCDs. Anticoagulation contraindicated at this time Home medications reviewed and reconciled accordingly Quality VTE Deep Vein Thrombosis/Pulmonary Embolism Present on Admission: No
[2018-09-04] VITALS (17 sets, daily range): BP systolic 108–137; BP diastolic 61–78; PULSE 64–79; RESP 14–20; TEMP 36.4–37; O2SAT 95–100
--- NOTE | 2018-09-04 | PATH_ITS ---
[facility] Accession Number: [id number] . 01 Material submitted: . PART A: gastrointestinal site - ANTRUM BIOPSY PART B: gastrointestinal site - ANTRUM BIOPSY . 01 Clinical history: . A: FOR H. PYLORI . 02 Diagnosis: A. Antrum, Biopsy: Gastric antral mucosa with minimal chronic gastritis. No evidence of Helicobacter organisms on H/E stain. Negative for intestinal metaplasia, dysplasia or malignancy. . B. Designated Antrum, Biopsy: Gastric body mucosa with minimal chronic gastritis. No evidence of Helicobacter organisms on H/E stain. Negative for intestinal metaplasia, dysplasia or malignancy. [facility]/09/06/2018 . 02 Electronically signed: . Justo Garcia MD, PhD, Pathologist NPI- [id number] . 01 Gross description: . Part A: ANTRUM BIOPSY: Received in formalin is 1 fragment(s) of sabillon, soft tissue measuring 0.3 x 0.3 x 0.3 cm submitted entirely in 1 cassette(s) Part B: ANTRUM BIOPSY: Received in formalin is 1 fragment(s) of sabillon, soft tissue measuring 0.5 x 0.3 x 0.1 cm submitted entirely in 1 cassette(s) /CKI /CKI . 02 Pathologist provided ICD-10: K29.70 . 02 CPT . 527592, [id number] Performed at: 01 [facility] [address] [place] [address], [place], [place] [id number] MD Rocael Mahajan MD Phone: [phone] Performed at: 02 [facility] [address] [place], [place] [id number] MD Malou Rangel MD Phone: [phone]
[2018-09-04 01:10] LABS: Hematocrit 24.2 % (36-46); Hemoglobin 7.9 g/dL (12.0-16.0)
[2018-09-04 06:43] LABS: Transferrin 274 mg/dL (206-381)
[2018-09-04 06:48] LABS: Iron < 10 ug/dL (37-170)
[2018-09-04] MEDS: SODIUM CHLORIDE 0.9% 1,000 ML 75 ML IV (08:06)
[2018-09-04 09:13] LABS: Add Manual Diff / Slide Review NO; Basophils Absolute Auto 100 /uL (0-100); Basophils Percent Auto 1.5 % (0-2); Eosinophils Absolute Auto 200 /uL (0-450); Eosinophils Percent Auto 4.6 % (2-4); Hematocrit 24.2 % (36-46); Hemoglobin 7.9 g/dL (12.0-16.0); Lymphocytes Absolute Auto 1000 /uL (1100-4500); Lymphocytes Percent Auto 20.8 % (25-40); Mean Corpuscular HGB Conc 32.7 % (30-36); Mean Corpuscular Hemoglobin 27.5 PG (26-34); Mean Corpuscular Volume 83.9 fL (80-100); Monocytes Absolute Auto 400 /uL (0-900); Monocytes Percent Auto 8.9 % (3-14); Neutrophils Absolute Auto 3100 /uL (1500-7000); Neutrophils Percent Auto 64.2 % (50-75); Platelet Count 186 X10^3/uL (150-400); Red Blood Cell Count 2.89 X10^6/uL (4.0-5.2); Red Cell Distribution Width 15.8 % (11.6-14.8); White Blood Cell Count 4.9 X10^3/uL (4.5-11.0)
[2018-09-04 09:29] LABS: BUN Creatinine Ratio 25.7 (6-22); Blood Urea Nitrogen 18 mg/dL (7-17); Calcium 8.5 mg/dL (8.4-10.2); Carbon Dioxide 22 mmol/L (22-32); Estimated Glomerular Filt Rate > 60.0 mL/min (>60); Glucose 93 mg/dL (80-110); HEMOLYSIS < 15 (0-50); Magnesium 1.9 mg/dL (1.6-2.3)
[2018-09-04 09:45] LABS: Chloride 110 mmol/L (98-107); Potassium 3.8 mmol/L (3.4-5.1); Sodium 138 mmol/L (137-145)
[2018-09-04] MEDS: PANTOPRAZOLE 40 MG VIAL IV (10:29)
[2018-09-04] MEDS: ACETAMINOPHEN 325 MG TABLET 650 MG PO (12:03)
[2018-09-04 13:22] LABS: Iron < 10 ug/dL (37-170); Percent Iron Saturation 3 % (15-50); Total Iron Binding Capacity 368 ug/dL (265-497)
[2018-09-04 13:23] LABS: HEMOLYSIS < 15 (0-50); Transferrin 280 mg/dL (206-381)
[2018-09-04] MEDS: LACTATED RINGERS 1,000 ML 42 ML IV (13:42)
--- NOTE | 2018-09-04 13:42 | SUR.HOLD ---
Brought into [facility] in wheelchair, transferred to stretcher; stable on feet. A&O. spouse and brother present. Anesthesia and surgeon present; inadequate time for holding assessment.
[2018-09-04] MEDS: TETRACAINE/BENZOCAINE/BUTAMBEN (CETACAINE) BOTTLE 1 SPRAY TOP (14:02)
--- NOTE | 2018-09-04 14:06 | CM.DANOTE ---
DCP/Assessment: Reviewed chart. Patient is a 78yr old female admitted to [facility] with anemia/right hip recovery. PCP is Dr. Ba. Primary payor is 1)Medicare 2)[facility]. Met with patient and spouse/Parviz at bedside explained CM/SW role. Patient alert and oriented resting in bed at time of visit. Patient reports that since her right hip surgery in Jun. she has been using cane/walker at baseline. Patient was in [place] in June and fell in the airport on her way home. She ended up having partial right hip replacement. Patient and spouse reside in [place], [place]. Patient hopes to return home when medically stable. Spoke with MD about the possibility of obtaining PT/OT evaluations prior to discharge and when patient medically appropriate. Patient required 2 units of blood today and having upper endoscopy later today. Dr. Olsen in agreement. Patient asking about information pertaining to advanced directives. Provided patient with brochure on Living Will. Patient also encouraged to discuss her wishes with PCP/Dr. Ba. Patient unsure if she has ever done a POLST. Patient reports that she would never want a feeding tube. Again, encouraged patient to discuss with PCP and medical providers at [facility] if nessecary. P: Pending. Anticipate home. Patient would benefit from PT/OT evaluations prior to d/c to best determine safest d/c plan. PETER Rodriguez Discharge Planning/Care Management Advanced directive, confirm from FAMILY Start: 09/03/18 17:40 Freq: Q24H Status: Active Protocol: Document 09/03/18 17:56 JIA (Rec: 09/03/18 17:57 JIA [id number]) Advance Directive, confirm on record Time 17:57 Person contacted Alexey Drew Copy received No CM Discharge Assessment Start: 09/04/18 14:02 Freq: Status: Active Protocol: Document 09/04/18 14:02 TOMASS (Rec: 09/04/18 14:06 KJS [id number]) Discharge Planning Assessment Assigned Scientific Artist PETER Rodriguez Contact Information Parviz Dillon (spouse) [phone] Advance Directives? Yes History Provided By Patient Family Member Prior Living Arrangements House Household Members spouse Type of transporation used prior to Relies on Others admit Independent with ADL's Yes Is patient alert and oriented? Yes Caregiver for Another No DME Already Rented / Owned FWW / Walker Cane Comment Pending hospitalization. Discharge Plan Home Transportation Arrangement Family to provide transport. Whiteboard Updated in Patient Room with Yes name and ext. # of Scientific Artist Review Status In Process Next Review Type Continued Stay Review
--- NOTE | 2018-09-04 14:34 | PM.OP.ENDO ---
Operative Date/Time/Diagnoses Date of procedure: 09/04/18 Time of procedure: 14:34 Pre-op diagnosis: Upper GI bleed Post-op diagnosis: same Procedure & Clinicians Study performed: Esophagogastroduodenoscopy Same procedure as scheduled: Yes Surgeon: Clifton Tamayo Procedure Notes SCOAP/Timeout: Don Procedure in detail: Patient was properly identified during surgical pause given propofol anesthesia by the anesthesiologist. Also provided with oral pharyngeal Cetacaine spray. The flexible fiberoptic gastroscope was inserted transorally from the hypopharynx into the upper duodenum. patient has a very large paraesophageal hiatal hernia patient has large linear streaking ulcerations in the gastric body and cardia. The gastric antrum looks very atrophic. The pyloric channel 1st 2nd portion of the duodenum do not show ulceration. On withdrawing the scope I did biopsies of the gastric antrum for H pylori as well as for histology. The procedure was very well tolerated. The ulcerations described in the stomach body are not actively bleeding at this time. Scope withdrawal time: 5 Sedation minutes: 20 Findings: gastric ulcer, gastritis and other findings (Huge paraesophageal hiatal hernia) Specimen(s): other (Gastric biopsies) Complications: none Impression: Upper GI bleed secondary to large linear gastric ulcerations Follow up: weeks Disposition: PACU
--- NOTE | 2018-09-04 14:48 | SUR.PHASEI ---
Report called to Suyapa
--- NOTE | 2018-09-04 14:53 | PC.NURSE ---
GI: Off to OR for EGD. Has had 1 black stool which guiac +. No pain or nausea, is thirsty but understands NPO. Hopes she will be able to have liquids when she returns.
--- NOTE | 2018-09-04 15:12 | SUR.PHASEI ---
Pt transferred to the floor, report to Suyapa. Pt incontinent of urine, ambulated to bathroom, cleaned up by Pauline. IV saline locked.
[2018-09-04] MEDS: SUCRALFATE 1 GM/10 ML ORAL SUSP PO ×2 (16:49→21:15)
--- NOTE | 2018-09-04 20:45 | PM.PN.1 ---
Subjective Date Patient Seen: 09/04/18 Interval history: Marce Dillon is a 78-year-old female with a past medical history significant for mitral regurgitation, multiple sclerosis, iron deficiency anemia, recent right hip fracture status post hemiarthroplasty who presented with profound weakness, dizziness and lightheadedness and found to have symptomatic blood loss anemia. Admitted for further management. The patient is resting in bed comfortably. She is in good spirits. She reports she feels significantly better since receiving blood transfusions yesterday evening. She just received her EGD with results of linear gastric ulcer thought to be source of acute blood loss and GI bleed. She denies headache, shortness of breath, chest pain, abdominal pain, nausea, vomiting, fever, chills, dysuria, diarrhea or constipation. She is voiding and eliminating without difficulty. She is up ambulating with assistance. Discussed advance directive and POLST form for which patient requested and will plan to fill out with . Exam Vital Signs (past 8 hours): - 09/04/18 14:15 09/04/18 14:19 09/04/18 14:24 Temperature 98.1 F Pulse Rate 71 71 73 Respiratory Rate 17 14 Blood Pressure 112/65 116/66 108/65 Pulse Oximetry 100 97 95 09/04/18 14:29 09/04/18 14:34 09/04/18 14:44 Temperature Pulse Rate 72 74 75 Respiratory Rate 15 16 18 Blood Pressure 117/67 120/65 126/78 Pulse Oximetry 98 98 09/04/18 15:00 09/04/18 15:40 09/04/18 16:24 Temperature 98 F 98.1 F Pulse Rate 79 73 Respiratory Rate 16 20 Blood Pressure 137/76 118/66 Pulse Oximetry 98 99 99 Oxygen Delivery Method Room Air Oxygen Flow Rate 4 Narrative Exam Narrative: General: Older female lying in bed and in no acute distress, well-developed, well-nourished, appropriately interactive. HEENT: Normocephalic, atraumatic. External ears without defect. Pupils equal, round, and reactive to light. Anicteric sclerae, moist conjunctivae, and no lid lag. Oropharynx free of erythema and cobble stoning with moist mucosa. 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 Neck: Supple with full range of motion. No jugular venous distension. No bruits. No lymphadenopathy or thyromegaly. Cardiovascular: Regular rate and rhythm with grade 4/6 holosystolic murmurs. No rubs or gallops. Pulmonary: Clear to auscultation bilaterally without crackles, wheezes, or rhonchi. Normal respiratory effort with no use of accessory muscles. Abdomen: Soft, bowel sounds present, nontender, nondistended. No hepatosplenomegaly or masses appreciated. Extremities: No clubbing, cyanosis, or edema. Skin: Normal temperature, turgor, and texture; no rash, ulcers, or subcutaneous nodules appreciated. Neurological: Cranial nerves grossly intact. Psychiatric: Normal mood and affect. Alert and oriented to person, place, and time. Objective Labs Result Diagrams: 09/04/18 08:21 09/04/18 08:21 Labs: Laboratory Results - last 24 hr 09/03/18 09/03/18 09/03/18 14:34 14:34 14:34 WBC RBC Hgb Hct MCV MCH MCHC RDW Plt Count Neut % (Auto) Lymph % (Auto) [place] % (Auto) Eos % (Auto) Baso % (Auto) Neut # (Auto) Lymph # (Auto) [place] # (Auto) Eos # (Auto) Baso # (Auto) Sodium Potassium Chloride Carbon Dioxide BUN Creatinine Estimated GFR BUN/Creatinine Ratio Glucose Calcium Magnesium Iron < 10 L < 10 L TIBC 368 % Saturation 3 L Transferrin 274 280 Ferritin TSH Crossmatch 09/03/18 09/03/18 09/04/18 14:34 15:44 00:50 WBC RBC Hgb 7.9 L Hct 24.2 L MCV MCH MCHC RDW Plt Count Neut % (Auto) Lymph % (Auto) [place] % (Auto) Eos % (Auto) Baso % (Auto) Neut # (Auto) Lymph # (Auto) [place] # (Auto) Eos # (Auto) Baso # (Auto) Sodium Potassium Chloride Carbon Dioxide BUN Creatinine Estimated GFR BUN/Creatinine Ratio Glucose Calcium Magnesium Iron TIBC % Saturation Transferrin Ferritin 11.0 L TSH Crossmatch See Detail 09/04/18 09/04/18 09/04/18 08:21 08:21 08:21 WBC 4.9 RBC 2.89 L Hgb 7.9 L Hct 24.2 L MCV 83.9 MCH 27.5 MCHC 32.7 RDW 15.8 H Plt Count 186 Neut % (Auto) 64.2 Lymph % (Auto) 20.8 L [place] % (Auto) 8.9 Eos % (Auto) 4.6 H Baso % (Auto) 1.5 Neut # (Auto) 3100 Lymph # (Auto) 1000 L [place] # (Auto) 400 Eos # (Auto) 200 Baso # (Auto) 100 Sodium 138 Potassium 3.8 Chloride 110 H Carbon Dioxide 22 BUN 18 H Creatinine 0.70 Estimated GFR > 60.0 BUN/Creatinine Ratio 25.7 H Glucose 93 Calcium 8.5 Magnesium 1.9 Iron TIBC % Saturation Transferrin Ferritin TSH 2.10 Crossmatch Assessment & Plan Assessment & Plan narrative: Marce Dillon is a 78-year-old female with a past medical history significant for mitral regurgitation, multiple sclerosis, iron deficiency anemia, recent right hip fracture status post hemiarthroplasty who presented with profound weakness, dizziness and lightheadedness and found to have symptomatic blood loss anemia. Admitted for further management. 1. Acute blood loss anemia on chronic iron deficiency anemia, secondary to upper GI bleed, present on admission. Resolving. -Prior history of esophagitis, gastritis, large hiatal hernia, and Ewing's esophagus. -Initial hemoglobin 5.8. Patient is symptomatic with lightheadedness, dizziness, profound weakness, diaphoresis and nausea. Unclear baseline hemoglobin and hematocrit. -Guaiac positive. Patient denies melena or hematochezia. -Consulted General surgery, Dr. Tamayo, who performed EGD which demonstrated linear gastric ulcer without stigmata of bleeding but thought to be source of GI bleed. -Received 2 units PRBC with appropriate rise in H&H. -Continue Protonix 40 mg twice daily and Carafate 1 g 4 times daily for 2 weeks. Recommend follow-up with General surgery in 1-2 weeks. -H&H stable. Will continue to monitor hemoglobin and hematocrit closely. 2. Acute hypovolemia, present on admission. Resolved. -Suspected to be multifactorial and secondary to acute blood loss and diminished appetite -Received 2 units PRBCs. -Received gentle IV fluid hydration and discontinued as adequately hydrated. 3. Iron deficiency anemia, chronic, present on admission. Active. -Iron panel demonstrated: Iron < 10, TIBC 368,% saturation 3, transferrin 280, and ferritin 11. -Ordered Venofer 100 mg IV tomorrow morning. 4. Recent right hip fracture with chronic pain, present on admission. Stable. -Associated with recent right hip fracture now status post feliberto-arthroplasty. -Ordered Tylenol 650 mg every 6 hours as needed for mild pain and hydrocodone 5-325 every 6 hours as needed for moderate to severe pain. 5. Hypothyroidism, chronic, present on admission. Stable. -TSH within normal limits at 2.10. -Continue [place] Thyroid 16.25 mg daily. 6. Multiple sclerosis, chronic, present on admission. Stable. -Does not represent acute flare. Continue to monitor for signs symptoms of an acute flare. Disposition: Patient likely to discharge home tomorrow as long as hemoglobin and hematocrit are stable. Quality VTE Deep Vein Thrombosis/Pulmonary Embolism Present on Admission: No
[2018-09-04] MEDS: PANTOPRAZOLE 40 MG TABLET PO (21:16)
[2018-09-04] MEDS: HYDROCODONE/ACET 5/325 TABLET 1 TAB PO (21:18)
[2018-09-05 00:49] VITALS: O2SAT 97
[2018-09-05 04:05] VITALS: O2SAT 97
[2018-09-05 05:33] VITALS: BP 132/62; PULSE 76; RESP 16; TEMP 36.7; O2SAT 98
[2018-09-05] MEDS: SUCRALFATE 1 GM/10 ML ORAL SUSP PO ×2 (06:41→12:07)
[2018-09-05 06:45] LABS: Add Manual Diff / Slide Review NO; Basophils Absolute Auto 100 /uL (0-100); Basophils Percent Auto 1.2 % (0-2); Eosinophils Absolute Auto 400 /uL (0-450); Eosinophils Percent Auto 7.1 % (2-4); Hematocrit 24.4 % (36-46); Hemoglobin 7.9 g/dL (12.0-16.0); Lymphocytes Absolute Auto 1100 /uL (1100-4500); Lymphocytes Percent Auto 21.1 % (25-40); Mean Corpuscular HGB Conc 32.6 % (30-36); Mean Corpuscular Hemoglobin 27.5 PG (26-34); Mean Corpuscular Volume 84.4 fL (80-100); Monocytes Absolute Auto 500 /uL (0-900); Neutrophils Absolute Auto 3200 /uL (1500-7000); Neutrophils Percent Auto 61.6 % (50-75); Platelet Count 178 X10^3/uL (150-400); Red Blood Cell Count 2.89 X10^6/uL (4.0-5.2); White Blood Cell Count 5.2 X10^3/uL (4.5-11.0)
[2018-09-05 07:47] VITALS: O2SAT 98
[2018-09-05 08:00] VITALS: BP 115/62; PULSE 67; RESP 17; TEMP 36.6; O2SAT 97; O2SAT 98
[2018-09-05] MEDS: IRON SUCROSE 100 MG in SODIUM CHLORIDE 0.9% 100 ML 420 ML IV (09:27)
[2018-09-05] MEDS: ACETAMINOPHEN 325 MG TABLET 650 MG PO (09:28)
[2018-09-05] MEDS: SODIUM CHLORIDE 0.9% FLUSH 10 ML IV (09:28)
[2018-09-05] MEDS: PANTOPRAZOLE 40 MG TABLET PO (09:29)
--- NOTE | 2018-09-05 11:01 | PM.DS.1 ---
History of Present Illness Date Patient Seen: 09/03/18 Chief complaint: RECOVERING FROM BROKEN HIP Narrative: Written by Gildardo LEES: The patient is a 78-year-old female who presented to the ED with profound weakness. Associated symptoms included dizziness, lightheadedness, exertional dyspnea, nausea, and diaphoresis. Symptoms noted 7-10 days ago. They are exacerbated with activity. Patient denies chest pain, palpitations, hemoptysis, hematemesis and melena. No pressed history of a GI bleed. She is known to have iron deficiency anemia. The patient has had and EGD on 08/03/2015 that revealed esophagitis, antral gastritis with an, large hiatal hernia, diverticulosis, and internal hemorrhoids. Biopsies were taken which revealed Ewing's esophagus. Denies history of prior GI bleed. She stating that in recent weeks she was recently placed on Eliquis for anticoagulation; however, this medication is not part of her med list. She is unable to tell me who prescribed it. In she is not sure if she has been taking it. Denies use of NSAIDs. Her baseline hemoglobin is not known. Records available to evaluate baseline hemoglobin level are inconsistent. In March of 2016 and June of 2016 HGB ranged between 15 and 16 g/dL. Patient was found to be guaiac-positive in the ED. Hemoglobin of on presentation was 5.8. Red blood cell transfusion initiated in the ED, with the goal to transfuse 2 units overnight. Three months ago patient traveled to [place] for a family event. At time of travel she sustained a ground level mechanical fall landing onto her right hip, consequently she required right hemiarthroplasty. She was in the hospital for less than a week and thereafter was transferred to a rehabilitation facility for 2-3 weeks. Patient reports being on iron prior to her departure to [place]; however, the supplement was for gotten at home and she has not been on it since that time. The medications are not managed by the patient but by her . In addition, after her feliberto-arthroplasty patient was placed on a short course of anticoagulation (unable to recall the med), which she finished mid June. Additional past medical history than the 1 noted below includes Cheatham's palsy, Ewing's esophagus, GERD with gastritis and hiatal hernia Discharge Providers Date of admission: 09/03/18 16:17 Discharge Date: 09/05/18 Primary care physician: Brice Ba MD Consults: 09/03/18 16:32 Consult to General Surgery Routine Comment: Consulting Provider: Clifton Tamayo Reason for consultation: GI bleed, Dr. Tamayo Has provider been notified: Yes 09/03/18 20:31 Consult to Discharge Planning Routine Comment: Discharge provider: Leanne Olsen DO Summary Discharge Diagnosis: 1. Acute blood loss anemia, on chronic iron deficiency anemia, secondary to upper GI bleed from gastric ulcer, present on admission. Resolved. 2. Acute hypovolemia, present on admission. Resolved. 3. Iron deficiency anemia, chronic, present on admission. Active. 4. Recent right hip fracture with chronic pain, present on admission. Stable. 5. Hypothyroidism, chronic, present on admission. Stable. 6. Multiple sclerosis, chronic, present on admission. Stable. Hospital Course: Marce Dillon is a 78-year-old female with a past medical history significant for mitral regurgitation, multiple sclerosis, iron deficiency anemia, recent right hip fracture status post hemiarthroplasty who presented with profound weakness, dizziness and lightheadedness and found to have symptomatic blood loss anemia. Admitted for further management. 1. Acute blood loss anemia, on chronic iron deficiency anemia, secondary to upper GI bleed from gastric ulcer, present on admission. Resolved. -Likely secondary to aspirin 81 mg twice daily for DVT prophylaxis after total hip replacement. Patient reports she was on blood thinner after surgery but unclear which blood thinner. -Prior history of esophagitis, gastritis, large hiatal hernia, and Ewing's esophagus. -Initial hemoglobin 5.8. Patient was symptomatic with lightheadedness, dizziness, profound weakness, diaphoresis and nausea. Unclear baseline hemoglobin and hematocrit. -Guaiac positive. Patient denies melena or hematochezia. -Consulted General surgery, Dr. Tamayo, who performed EGD which demonstrated linear gastric ulcer without stigmata of bleeding but thought to be source of GI bleed. -Received 2 units PRBC with appropriate rise in H&H. -Continued Protonix 40 mg daily for 4 weeks and Carafate 1 g 4 times daily for 2 weeks. Recommend follow-up with General surgery only if patient has recurrent anemia at which time a colonoscopy would be pursued. -H&H stable. Continued to monitor hemoglobin and hematocrit closely. Current 7.9. -No NSAIDs. 2. Acute hypovolemia, present on admission. Resolved. -Suspected to be multifactorial and secondary to acute blood loss and diminished appetite. -Received 2 units PRBCs. -Received gentle IV fluid hydration and discontinued once adequately hydrated. 3. Iron deficiency anemia, chronic, present on admission. Active. -Iron panel demonstrated: Iron < 10, TIBC 368%, saturation 3, transferrin 280, and ferritin 11. -Received Venofer 100 mg IV x 1. 4. Recent right hip fracture with chronic pain, present on admission. Stable. -Associated with recent right hip fracture now status post feliberto-arthroplasty. -Ordered Tylenol 650 mg every 6 hours as needed for mild pain and hydrocodone 5-325 every 6 hours as needed for moderate to severe pain. 5. Hypothyroidism, chronic, present on admission. Stable. -TSH within normal limits at 2.10. -Continued [place] Thyroid 16.25 mg daily. 6. Multiple sclerosis, chronic, present on admission. Stable. -Did not represent acute flare. Continued to monitor for signs symptoms of an acute flare. Status at Discharge Functional status at discharge: uses cane/walker Overall status at discharge: patient is progressing back to baseline Exam Vital Signs (past 8 hours): - 09/05/18 04:05 09/05/18 05:33 09/05/18 07:47 Temperature 98.0 F Pulse Rate 76 Respiratory Rate 16 Blood Pressure 132/62 Pulse Oximetry 97 98 98 09/05/18 08:00 Temperature 97.9 F Pulse Rate 67 Respiratory Rate 17 Blood Pressure 115/62 Pulse Oximetry 97 Fraction of Inspired Oxygen 21 Oxygen Delivery Method Room Air Oxygen Flow Rate 0 Narrative Exam Narrative: General: Older female lying in bed and in no acute distress, well-developed, well-nourished, appropriately interactive. HEENT: Normocephalic, atraumatic. External ears without defect. Pupils equal, round, and reactive to light. Anicteric sclerae, moist conjunctivae, and no lid lag. Oropharynx free of erythema and cobble stoning with moist mucosa. 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 Neck: Supple with full range of motion.No lymphadenopathy or thyromegaly. Cardiovascular: Regular rate and rhythm with grade 4/6 holosystolic murmurs. No rubs or gallops. Pulmonary: Clear to auscultation bilaterally without crackles, wheezes, or rhonchi. Normal respiratory effort with no use of accessory muscles. Abdomen: Soft, bowel sounds present, nontender, nondistended. No hepatosplenomegaly or masses appreciated. Extremities: No clubbing, cyanosis, or edema. Skin: Normal temperature, turgor, and texture; no rash, ulcers, or subcutaneous nodules appreciated. Neurological: Cranial nerves grossly intact. Psychiatric: Normal mood and affect. Alert and oriented to person, place, and time. Objective Labs Result Diagrams: 09/05/18 06:14 09/04/18 08:21 Labs: Laboratory Results - last 24 hr 09/03/18 09/05/18 14:34 06:14 WBC 5.2 RBC 2.89 L Hgb 7.9 L Hct 24.4 L MCV 84.4 MCH 27.5 MCHC 32.6 RDW 16.0 H Plt Count 178 Neut % (Auto) 61.6 Lymph % (Auto) 21.1 L [place] % (Auto) 9.0 Eos % (Auto) 7.1 H Baso % (Auto) 1.2 Neut # (Auto) 3200 Lymph # (Auto) 1100 [place] # (Auto) 500 Eos # (Auto) 400 Baso # (Auto) 100 Iron < 10 L TIBC 368 % Saturation 3 L Transferrin 280 Discharge Plan Discharge Plan Patient Disposition: Home Discharge comment: You are being discharged home. You had a gastric ulcer which was the source of your bleeding and was likely from aspirin used after your hip replacement surgery to prevent blood clots. You have been prescribed 2 medications to treat and heal the gastric ulcer. Carafate 1 g 4 times daily (1st 3 doses with food and once before bedtime) for 2 weeks and Protonix 40 mg daily for 4 weeks. Recommend additional help with dosing your medications and being more cognizant of the medicines you are on. Please follow-up with your PCP, Dr. Ba, at your scheduled appointment for hospital follow-up and a blood draw. You may follow up with General surgery as needed if you have recurrent anemia at which time a colonoscopy would be recommended. Recommend continued physical therapy for your recent hip replacement and your multiple sclerosis. Discharge Med Rec/Prescriptions Prescriptions: New sucralfate 1 gram tablet 1 gram PO QACHS Qty: 56 RF: 0 pantoprazole 40 mg Tablet,Delayed Release (Dr/Ec) 40 mg PO DAILY Qty: 30 RF: 0 Continued thyroid (pork) [[place] Thyroid] 15 mg Tablet 16.25 mg PO DAILY RF: 0 omega-3 fatty acids-fish oil [Fish Oil] 300-1,000 mg Capsule 1 cap PO BID RF: 0 hydrocodone-acetaminophen [[place]] 5-325 mg Tablet 1 tab PO Q6H PRN (Reason: pain) RF: 0 prasterone (dhea) [DHEA] 25 mg Capsule 10 mg PO DAILY RF: 0 ferrous sulfate [Iron (ferrous sulfate)] 325 mg (65 mg iron) Tablet 325 mg PO QTUTHSA RF: 0 ranitidine HCl 150 mg Tablet 150 mg PO DAILY RF: 0 ascorbic acid (vitamin C) [Vitamin C] 500 mg Capsule, Extended Release 500 mg PO DAILY RF: 0 selenium 100 mcg Tablet 100 mcg PO DAILY RF: 0 coenzyme Q10 [CoQ-10] 100 mg Capsule 100 mg PO DAILY RF: 0 Restasis 0.05 % [place] 1 drp EYE-BOTH BID RF: 0 cholecalciferol (vitamin D3) [Vitamin D3] 1,000 unit Tablet 1,000 unit PO DAILY RF: 0 chromium picolinate 400 mcg Tablet 400 mcg PO DAILY RF: 0 progesterone micronized 100 mg Capsule 140 mg PO QAM RF: 0 Other Ambulatory Orders: Complete Blood Count AUTO DIFF (Routine) Timeframe: 1 Week Location: Laboratory Ordered By: Leanne Olsen Follow up/Referrals: Brice Ba MD [Primary Care Provider] - 1 Week (appt:09/12 @ 2:45 check in [facility] for appointment with dr ba [phone]) Provider Discharge Instructions Activity: Activity as tolerated with forward wheeled walker and PT Visit Report/Discharge Packet Instructions: Gastritis, Ewing Esophagus, Gastric Ulcer, [place] Diet, DI for Blood Transfusion, DI for Ewing's Esophagus, EGD Discharge Instructions Discharge Data Primary Care Provider: Brice Ba V Attending Provider: Leanne Olsen Admit Date/Time: 09/03/18 16:17 Quality VTE Deep Vein Thrombosis/Pulmonary Embolism Present on Admission: No
--- NOTE | 2018-09-05 14:13 | CM.DPC ---
DCP Discharge Home Per MD, pt to have EGD today and then stable for d/c home today with follow up with PCP and no barriers to discharge at this time. Per RN, pt tolerated EGD procedure well and back to floor, no concerns at this time. Plan: Patient to d/c home via spouse POV later today and no SW needs at this time. PETER Girard
--- NOTE | 2018-09-05 14:14 | DIET.PN ---
Pt requested education- need to know what I can and can't eat. Dressed and ready for discharge home. DX: GIB, gastric ulcer, Fe def anemia Hx: Devan, naila Diet: Full liquid Assessment: Discussed w/RN; decided there was no reason to go home on full liquid diet (no DC diet ordered). Pt reports some swallowing difficulty r/t M.S., but eats slowly and able to do okay. Intervention: Provided ed on PUD diet - avoid caffiene, alcohol (increase gastric acid secretions) and any irritating foods, depending on tolerance - such as spices, chilis, black pepper. Discussed keeping track of weight and strength - if either are decreasing r/t being unable to consume adequate nutrition with swallowing difficulty, try adding ONS or high protein/easy to consume beverages/smoothies. Plan Discharge home
--- NOTE | 2018-09-05 15:04 | PC.NURSE ---
Discharge: Feels ready to d/c home today. Reviewed d/c instructions sheets, follow up with MD Ba. RX accidently sent to wrong pharmacy. (pharmacy in computer incorrectly) MD Olsen made aware and she will call the new rx's in to the [facility] and information change was entered into pt's medical record. Spouse present at time of teaching and both feel ready to go home. Questions answered. Pt d/c home via auto w/spouse.
== END 2018-09-05 13:30 | disposition home or self-care (01) | DRG 378 ==
LOC: ED 16:15 → AC 16:18
PROVIDERS: Nurse Practitioner Gerontology; Surgery; Admitting Provider Internal Medicine; Emergency Provider Internal Medicine; PCP Internal Medicine; Visit Provider Internal Medicine
PROC: 0DJ08ZZ Inspection of Upper Intestinal Tract, Via Natural or Artificial Opening Endoscopic (ICD-10-PCS; CPT 43235; principal; 2018-09-04 16:00)
DX: K25.4 Chronic or unspecified gastric ulcer with hemorrhage (principal); D62 Acute posthemorrhagic anemia; E86.1 Hypovolemia; M25.561 Pain in right knee; G35 Multiple sclerosis; E03.9 Hypothyroidism, unspecified
CPT/HCPCS: 36415; 36430; 43239; 71045; 73562; 80048; 80053; 82728; 83540; 83550; 83735; 84443; 84466; 84484; 85014; 85018; 85025; 86850; 86900; 86901; 88305; 93005; 94760; 96361; 96374; 99152; 99232; 99283; 99285; P9016; C9113; J1756; J2250; J2704; J3010

== ENCOUNTER → 2018-10-16 16:07 | Outpatient (CLI) | payer MEDICARE, OTHER, SELFPAY ==
[2018-09-03 17:23] VITALS: BMI 25.8
--- NOTE | 2018-10-16 16:13 | DI.RAD.S_ITS ---
PROCEDURE: XR KUB INDICATIONS: URETEROLITHIASIS TECHNIQUE: One view of the abdomen acquired. COMPARISON: [facility], CT, KIDNEY/ URETER/BLADDER, 06/24/2016, 14:40. FINDINGS: Surgical changes and devices: Right hip arthroplasty. Bowel: Bowel gas pattern is normal. Soft tissues: Bilateral nephrolithiasis measuring up 1.3 cm on the left and 1.3 cm right. Presumably phleboliths. Bones: No suspicious bony lesions. Mild left hip degeneration. Lower lumbar spondylosis. IMPRESSION: Bilateral nephrolithiasis as before. Dictated by: Mina Schafer M.D. on 10/16/2018 at 16:55 Approved by: Mina Schafer M.D. on 10/16/2018 at 16:57
== END ==
PROVIDERS: PCP Internal Medicine; Visit Provider Internal Medicine
DX: N20.1 Calculus of ureter (principal); M16.12 Unilateral primary osteoarthritis, left hip; M47.816 Spondylosis without myelopathy or radiculopathy, lumbar region
CPT/HCPCS: 74018

== ENCOUNTER → 2018-10-18 12:44 | Outpatient (CLI) | payer MEDICARE, OTHER, SELFPAY ==
[2018-09-03 17:23] VITALS: BMI 25.8
--- NOTE | 2018-10-18 | DI.CT.S_ITS ---
PROCEDURE: CT KIDNEY URETER BLADDER (KUB) INDICATIONS: KIDNEY STONES TECHNIQUE: Noncontrast 5 mm thick sections acquired from the diaphragms to the symphysis. 5 mm thick coronal and sagittal reformats were then performed. For radiation dose reduction, the following was used: automated exposure control, adjustment of mA and/or kV according to patient size. COMPARISON: [facility], CT, KIDNEY/ URETER/BLADDER, 06/24/2016, 14:40. FINDINGS: Image quality: Diagnostic. Lung bases: Lung bases are clear. Heart size is normal. Urinary system: There is a 5 x 8 x 10 mm calculus present within the distal right ureter just proximal to the vesicoureteral junction. Associated severe right-sided hydroureter and moderate to severe hydronephrosis is present. Additional areas of nephrolithiasis are noted involving both kidneys. There may be a parapelvic cyst present on the left. No hydroureter or ureteral calculi are evident on the left. The bladder is unremarkable. No bladder calculi are evident. Other solid organs: The liver contains a simple cyst involving the left hepatic lobe which is unchanged since 06/24/16. The gallbladder contains high attenuation material, which may represent sludge versus small gallstones. The pancreas, spleen, and adrenals are within normal limits. Peritoneum and bowel: There is a moderate to large hiatal hernia identified. The small bowel loops are nondilated. Scattered colonic diverticulosis is more prominent involving the distal colon. No surrounding inflammation is evident to suggest acute diverticulitis. The appendix is not clearly seen. No free fluid, loculated fluid collection or free air is evident. There is a small fat containing periumbilical hernia. Nodes and vessels: No retroperitoneal or mesenteric adenopathy by size criteria. Aorta and inferior vena cava are normal in caliber. There is aortic atherosclerosis. Pelvis: No free pelvic fluid. No inguinal hernias or adenopathy. Bones: No suspicious bony lesions. No vertebral body compression fractures. No acute fractures are appreciated. Postoperative changes are present related to previous right hip arthroplasty. IMPRESSION: 1. Moderate to large at least partially obstructing distal right ureteral calculus near the bladder measuring up to 10 mm with corresponding moderate to severe hydronephrosis and hydroureter. 2. Bilateral nephrolithiasis. No left-sided ureterolithiasis. 3. Moderate amount of residual stool within the colon may represent constipation. 4. Hepatic cysts. 5. Moderate to large hiatal hernia. Dictated by: Santino Cruz M.D. on 10/18/2018 at 13:44 Approved by: Santino Cruz M.D. on 10/18/2018 at 13:59
== END ==
PROVIDERS: PCP Internal Medicine; Visit Provider Specialist
DX: N13.2 Hydronephrosis with renal and ureteral calculous obstruction (principal); K57.30 Diverticulosis of large intestine without perforation or abscess without bleeding; K76.89 Other specified diseases of liver; K44.9 Diaphragmatic hernia without obstruction or gangrene; K42.9 Umbilical hernia without obstruction or gangrene; I70.0 Atherosclerosis of aorta
CPT/HCPCS: 74176

== ENCOUNTER → 2018-10-20 08:39 | Outpatient (CLI) | payer MEDICARE, OTHER, SELFPAY ==
[2018-09-03 17:23] VITALS: BMI 25.8
--- NOTE | 2018-10-20 | DI.MRI.S_ITS ---
PROCEDURE: MR KNEE RT WO CON INDICATIONS: Pain in right knee TECHNIQUE: Noncontrast sagittal PD fast spin echo and T2 fast spin echo with fat saturation, sagittal 3-D FLASH with fat saturation; coronal T1 spin echo and PD fast spin echo with fat saturation, and axial PD fast spin echo with fat saturation through the knee. COMPARISON: None. FINDINGS: Image quality: Excellent. Menisci: The medial and lateral menisci demonstrate normal morphology and internal signal. The meniscal root ligaments appear intact. Cruciate ligaments: The anterior and posterior cruciate ligaments appear intact. Medial structures: The medial collateral ligament appears intact. The posterior oblique ligament, semimembranosus tendon insertions, oblique popliteal ligament, and meniscocapsular junction appear intact. Visualized portions of the pes anserinus tendons appear normal. No abnormal bursal fluid. Lateral structures: The lateral collateral ligament, long and short heads of the biceps femoris tendon appear intact. The popliteus tendon appears normal; the popliteofibular ligament appears intact. The posterosuperior and anteroinferior popliteomeniscal fascicles appear intact. The arcuate and fabellofibular ligaments appear intact, on either side of the lateral inferior geniculate artery. Iliotibial band appears normal. Anterior structures: The quadriceps and patellar tendons appear intact. Patellar alignment is normal. No femoral trochlear dysplasia or ventral trochlear prominence. No edema in the infrapatellar fat pad. Bones and cartilage: Mild tricompartmental osteoarthritis and chondromalacia is seen more prominent in medial femoral-tibial compartment. There is no marrow edema. No fracture or dislocation. Joint space: There is trace amount of joint fluid. No Cardenas's cyst. Normal appearing synovial plicae are incidentally noted. IMPRESSION: 1. Cruciate ligaments are intact. No evidence of focal meniscal tear. 2. Mild tricompartmental osteoarthritis and chondromalacia more prominent in medial femoral-tibial compartment. Trace amount of joint fluid. No fracture or dislocation. No marrow edema. Dictated by: Ajay Byrd M.D. on 10/22/2018 at 10:00 Approved by: Ajay Byrd M.D. on 10/22/2018 at 10:02
== END ==
PROVIDERS: PCP Internal Medicine; Visit Provider Internal Medicine
DX: M25.561 Pain in right knee (principal); M17.11 Unilateral primary osteoarthritis, right knee; M94.261 Chondromalacia, right knee
CPT/HCPCS: 73721

== ENCOUNTER → 2018-11-13 10:21 | Outpatient (CLI) | payer MEDICARE, OTHER, SELFPAY ==
[2018-09-03 17:23] VITALS: BMI 25.8
--- NOTE | 2018-11-13 | DI.RAD.S_ITS ---
PROCEDURE: XR KUB INDICATIONS: CALCULUS OF KIDNEY TECHNIQUE: One view of the abdomen acquired. COMPARISON: [facility], CR, XR INTRAOPERATIVE FLUORO UP TO 1 HOUR, 10/19/2018, 0:02. [facility], CT, CT KIDNEY URETER BLADDER (KUB), 10/18/2018, 13:14. [facility], CR, XR KUB, 10/16/2018, 16:21. FINDINGS: Surgical changes and devices: Right hip total arthroplasty. Bowel: Bowel gas pattern is normal. Soft tissues: Right kidney inferior pole calculus measuring 1.6 cm. Left mid kidney calculus measuring 1.5 cm. Left kidney inferior pole calculus measuring 0.8 cm. Right pelvis calcification measuring 0.5 cm. This is favored represent the previously seen distal right ureteral calculus given its similar size and location. Additional punctate opacifications in the left pelvis which likely represent phleboliths. Bones: No suspicious bony lesions. IMPRESSION: 1. Right pelvic calcification is unchanged in position and likely corresponds to the previously seen right obstructing ureteral calculus on the CT 10/18/2018. 2. Similar bilateral kidney stones. Dictated by: Bruno Larson M.D. on 11/13/2018 at 11:49 Approved by: Bruno Larson M.D. on 11/13/2018 at 11:58
[2018-11-13 11:52] LABS: Calcium 9.3 mg/dL (8.4-10.2); Uric Acid 4.9 mg/dL (2.5-6.2)
[2018-11-15 15:15] LABS: Parathyroid Hormone Int 71 pg/mL (14-64)
== END ==
PROVIDERS: PCP Internal Medicine; Visit Provider Specialist
DX: N20.0 Calculus of kidney (principal); N20.1 Calculus of ureter
CPT/HCPCS: 36415; 74018; 82310; 83970; 84550

== ENCOUNTER → 2019-01-31 12:02 | Outpatient (CLI) | payer MEDICARE, OTHER, SELFPAY ==
[2018-09-03 17:23] VITALS: BMI 25.8
--- NOTE | 2019-01-31 | DI.RAD.S_ITS ---
PROCEDURE: XR KUB INDICATIONS: Calculus of kidney TECHNIQUE: One view of the abdomen acquired. COMPARISON: [facility], CT, CT KIDNEY URETER BLADDER (KUB), 10/18/2018, 13:14. [facility], CR, XR KUB, 11/13/2018, 10:36. FINDINGS: Surgical changes and devices: None. Bowel: Bowel gas pattern is normal. There is a moderate amount of stranding colon. Soft tissues: Bilateral renal calculi are present measuring up to 16mm in right kidney and 15 mm left kidney, unchanged compared to the last exam. Visualized solid organ contours appear normal in size. Bones: No suspicious bony lesions. IMPRESSION: Bilateral renal calculi are unchanged compared to the last exam. Dictated by: Angely Corrigan M.D. on 01/31/2019 at 17:43 Approved by: Angley Corrigan M.D. on 01/31/2019 at 17:46
== END ==
PROVIDERS: PCP Internal Medicine; Visit Provider Specialist
DX: N20.0 Calculus of kidney (principal)
CPT/HCPCS: 74018

== ENCOUNTER → 2019-02-08 10:39 | Outpatient (CLI) | payer MEDICARE, OTHER, SELFPAY ==
[2018-09-03 17:23] VITALS: BMI 25.8
--- NOTE | 2019-02-08 | DI.RAD.S_ITS ---
PROCEDURE: XR KUB INDICATIONS: PLAIN KUB/ KIDNEY STONES TECHNIQUE: One view of the abdomen acquired. COMPARISON: [facility], CR, XR KUB, 01/31/2019, 12:09. [facility], CR, XR KUB, 11/13/2018, 10:36. FINDINGS: Surgical changes and devices: None. Bowel: Bowel gas pattern is normal. Soft tissues: No new suspicious abdominal calcifications. The renal calculi previously identified are relatively large in size, have not enlarged, and measure 1.5 cm as the largest dimensions bilaterally. Smaller lower left renal collecting system region calculus also is again stable over time. Visualized solid organ contours appear normal in size. Bones: No suspicious bony lesions. IMPRESSION: Stable over time, from early this month. Bilateral moderately large renal collecting system calculi 2 on the left and one on the right. Maximal dimension is 1.5 cm in these have not moved in a position that would be suspicious for having transited towards or into the ureters bilaterally. Dictated by: Venkata Telles M.D. on 02/08/2019 at 12:13 Approved by: Venkata Telles M.D. on 02/08/2019 at 12:15
== END ==
PROVIDERS: Family Provider Internal Medicine; PCP Internal Medicine; Visit Provider Specialist
DX: N20.0 Calculus of kidney (principal)
CPT/HCPCS: 74018

== ENCOUNTER → 2019-07-16 11:49 | Outpatient (CLI) | payer MEDICARE, OTHER, SELFPAY ==
[2018-09-03 17:23] VITALS: BMI 25.8
[2019-07-16 12:41] LABS: Add Manual Diff / Slide Review NO; Basophils Absolute Auto 100 /uL (0-100); Basophils Percent Auto 0.9 % (0-2); Eosinophils Absolute Auto 0 /uL (0-450); Eosinophils Percent Auto 0.7 % (2-4); Hematocrit 39.6 % (36-46); Hemoglobin 13.2 g/dL (12.0-16.0); Lymphocytes Absolute Auto 1600 /uL (1100-4500); Lymphocytes Percent Auto 24.9 % (25-40); Mean Corpuscular HGB Conc 33.3 % (30-36); Mean Corpuscular Hemoglobin 31.4 PG (26-34); Mean Corpuscular Volume 94.4 fL (80-100); Monocytes Absolute Auto 400 /uL (0-900); Monocytes Percent Auto 5.5 % (3-14); Neutrophils Absolute Auto 4400 /uL (1500-7000); Platelet Count 185 X10^3/uL (150-400); Red Cell Distribution Width 14.1 % (11.6-14.8); White Blood Cell Count 6.5 X10^3/uL (4.5-11.0)
[2019-07-16 13:32] LABS: Alanine Aminotransferase 18 IU/L (<35); Albumin Globulin Ratio 1.4 (1.0-2.8); Alkaline Phosphatase 63 U/L (38-126); Aspartate Aminotransferase 24 IU/L (14-36); BUN Creatinine Ratio 44.3 (6-22); Bilirubin Total 0.5 mg/dL (0.2-1.3); Blood Urea Nitrogen 35 mg/dL (7-17); Carbon Dioxide 19 mmol/L (22-32); Chloride 107 mmol/L (98-107); Estimated Glomerular Filt Rate > 60.0 mL/min (>60); Globulin 2.8 g/dL (1.7-4.1); Glucose 139 mg/dL (80-110); HEMOLYSIS 16 (0-50); Potassium 3.7 mmol/L (3.4-5.1); Sodium 139 mmol/L (137-145); Total Protein 6.8 g/dL (6.3-8.2)
== END ==
PROVIDERS: Family Provider Internal Medicine; PCP Internal Medicine; Referring Provider Internal Medicine; Visit Provider Internal Medicine
DX: K52.9 Noninfective gastroenteritis and colitis, unspecified (principal)
CPT/HCPCS: 36415; 80053; 85025

== ENCOUNTER → 2020-08-26 15:00 | Outpatient (ROUT) | payer MEDICARE, OTHER, SELFPAY ==
[2018-09-03 17:23] VITALS: BMI 25.8
[2020-08-26 15:35] LABS: Blood Urea Nitrogen 16 mg/dL (7-17); Calcium 9.6 mg/dL (8.4-10.2); Carbon Dioxide 26 mmol/L (22-32); Chloride 105 mmol/L (98-107); Estimated Glomerular Filt Rate > 60.0 mL/min (>60); Glucose 92 mg/dL (80-110); HEMOLYSIS 19 (0-50); Potassium 4.1 mmol/L (3.4-5.1); Sodium 137 mmol/L (137-145)
== END ==
PROVIDERS: Family Provider Internal Medicine; PCP Internal Medicine; Visit Provider Internal Medicine
DX: M81.0 Age-related osteoporosis without current pathological fracture (principal)
CPT/HCPCS: 80048

== ENCOUNTER → 2020-12-24 10:08 | Outpatient (CLI) | payer MEDICARE, OTHER, SELFPAY ==
[2018-09-03 17:23] VITALS: BMI 25.8
--- NOTE | 2020-12-24 | DI.ECHO.S_ITS ---
[facility] +---------+ : : [address] : [address] : : : : [id number] : : : : Phone: [phone] Echocardiogram Report + + :Name: ALVAREZ DAVIS Study Date: 12/24/2020 Height: 66 in : :[facility] ReadingLocation: Weight: 160 lb : : Gender: Female BSA: 1.8 m2 : :: 1940 Age: 80 yrs BP: 175/94 mmHg: :Reason For Study: Murmur : :Ordering Physician: : :ASHANTI RIGGINS Performed By: Loy Torres : :Referring: ASHANTI RIGGINS : + + Interpretation Summary 1) Normal left ventricular thickness, size, wall motion, and systolic function (EF 55-60%). 2) Normal right ventricular size and function 3) Diastolic parameters suggest a pseudonormalization pattern, consistent with probable elevated filling pressures. 4) There is prolapse of the posterior mitral valve leaflet(s). 5) There is mild to moderate mitral regurgitation directed anteriorly. 6) There is very mild aortic stenosis (valve area 1.8cm2, mean gradient 4.0mmHg), severity ratio 0.55. 6) Hypertension present during the study (BP 175/94mmHg). 7) Compared to the Echo done 11/12/2013, mild to moderate mitral regurgitation is present on this study. Procedure: A two-dimensional transthoracic echocardiogram with color flow and Doppler was performed. The study quality was technically difficult. Comparison is made with the echocardiogram of 11/12/2013. Left Ventricle: The left ventricle is normal in size. Left ventricular wall thickness is at the upper limits of normal. Proximal septal thickening is noted. Left ventricular systolic function is normal. The ejection fraction is estimated to be 55-60%. There are no focal wall motion abnormalities. Diastolic parameters suggest a pseudonormalization pattern, consistent with probable elevated filling pressures. Right Ventricle: The right ventricle is normal in size and function. Atria: The left atrium is moderately dilated. Right atrial size is normal. There is no Doppler evidence for an interatrial shunt. Mitral Valve: The mitral valve leaflets appear mildly thickened, but open well. There is prolapse of the posterior mitral valve leaflet(s). The mitral regurgitant jet is anteriorly directed, which is consistent with posterior leaflet pathology. There is mild to moderate mitral regurgitation. Aortic Valve: The aortic valve is normal in structure and function. There is mild aortic stenosis. No aortic regurgitation is present. Tricuspid Valve: The tricuspid valve is normal in structure and function. There is mild tricuspid regurgitation. The right ventricular systolic pressure is estimated to be at least 33 mmHg based on an estimated right atrial pressure of 3 mm Hg. Pulmonic Valve: The pulmonic valve is normal in structure and function. There is mild pulmonic regurgitation. Great Vessels: The aortic root is normal size. The dimensions of the ascending aorta are normal. The IVC is of normal diameter and collapses greater than 50% with a sniff. This suggests a low right atrial pressure of 3 mm Hg. Pericardium/ Pleura There is no pericardial effusion. There is no pleural effusion. MMode/2D Measurements & Calculations LVIDd: 5.5 cm LVOT diam: 2.1 cm LVIDs: 3.8 cm Ao root diam: 3.3 cm FS: 30.9 % asc Aorta Diam: 3.0 cm IVSd: 1.1 cm LVPWd: 1.1 cm LV ojeda. diameter/BSA (cm/m^2): 3.0 LV sys. diameter/BSA (cm/m^2): 2.1 LA dimension: 2.8 cm RA long axis: 5.3 cm LA A2 area: 21.2 cm2 RA area: 16.1 cm2 LA A4 area: 26.6 cm2 RA vol: 41.7 ml LA length (vol): 6.4 cm RA : 22.9 ml/m2 LA vol: 74.4 ml LA vol index: 40.9 ml/m2 TAPSE_phl: 2.2 cm Doppler Measurements & Calculations Ao V2 max: 143.0 cm/sec LVOT Max Jamin: 72.5 cm/sec Ao V2 mean: 97.8 cm/sec LV V1 max P.1 mmHg Ao max P.0 mmHg LV V1 VTI: 16.3 cm Ao mean P.0 mmHg YAA(I,D): 1.9 cm2 Ao V2 VTI: 29.9 cm YAA(V,D): 1.8 cm2 sev ratio: 0.55 YAA indexed to BSA (cm^2/m^2): 1.0 MV E max jamin: 89.1 cm/sec TR max jamin: 274.0 cm/sec MV A max jamin: 90.8 cm/sec TR max P.0 mmHg MV E/A: 0.98 PA V2 max: 90.4 cm/sec Med Peak E' Jamin: 4.5 cm/sec PA V2 mean: 61.5 cm/sec E/E' med: 20.0 PA mean P.0 mmHg Lat Peak E' Jamin: 7.8 cm/sec PA pr(Accel): 39.8 mmHg E/E' lat: 11.4 E/e' average: 15.7 MV dec time: 0.30 sec SV(LVOT): 56.5 ml AV VR_phl: 0.51 YAA(VTI)/BSA_phl: 1.0 MV P1/2t-pr_phl: 88.0 msec Reading Physician:04:15 PM
== END ==
PROVIDERS: PCP Internal Medicine; Referring Provider Internal Medicine Cardiovascular Disease; Visit Provider Internal Medicine Cardiovascular Disease
DX: I08.3 Combined rheumatic disorders of mitral, aortic and tricuspid valves (principal); R01.1 Cardiac murmur, unspecified
CPT/HCPCS: 93306

== ENCOUNTER 2021-08-18 15:01 | Emergency (ER) | payer MEDICARE, SELFPAY ==
[2018-09-03 17:23] VITALS: BMI 25.8
[2021-08-18] VITALS (7 sets, daily range): BP systolic 136–196; BP diastolic 74–84; PULSE 53–64; RESP 16–18; TEMP 36.4; O2SAT 97–99; BMI 25.0
--- NOTE | 2021-08-18 15:12 | DI.RAD.S_ITS ---
PROCEDURE: XR CHEST 1V INDICATIONS: chest pain TECHNIQUE: One view of the chest was acquired. COMPARISON: [facility], CR, XR CHEST 1V, 09/03/2018, 14:12. FINDINGS: Surgical changes and devices: None. Lungs and pleura: Lungs are clear. No pleural effusions or pneumothorax. Mediastinum: Mediastinal contours appear normal. Heart size is normal. Moderate hiatal hernia Bones and chest wall: Convex right thoracolumbar scoliosis present. Old healed right-sided rib fractures. IMPRESSION: No acute cardiopulmonary findings Moderate hiatal hernia, thoracolumbar dextroscoliosis, old healed right-sided rib fractures Approved by: Anson Salas M.D. on 08/18/2021 at 14:50
[2021-08-18 15:39] LABS: Add Manual Diff / Slide Review NO; Basophils Absolute Auto 100 /uL (0-100); Basophils Percent Auto 1.6 % (0-2); Eosinophils Absolute Auto 200 /uL (0-450); Eosinophils Percent Auto 4.4 % (2-4); Hematocrit 46.9 % (36-46); Hemoglobin 16.2 g/dL (12.0-16.0); Lymphocytes Absolute Auto 1800 /uL (1100-4500); Lymphocytes Percent Auto 33.9 % (25-40); Mean Corpuscular HGB Conc 34.6 % (30-36); Mean Corpuscular Hemoglobin 31.7 PG (26-34); Mean Corpuscular Volume 91.4 fL (80-100); Monocytes Absolute Auto 500 /uL (0-900); Monocytes Percent Auto 9.4 % (3-14); Neutrophils Absolute Auto 2700 /uL (1500-7000); Neutrophils Percent Auto 50.7 % (50-75); Platelet Count 189 X10^3/uL (150-400); Red Blood Cell Count 5.13 X10^6/uL (4.0-5.2); Red Cell Distribution Width 13.7 % (11.6-14.8); White Blood Cell Count 5.4 X10^3/uL (4.5-11.0)
--- NOTE | 2021-08-18 15:50 | PC.NURSE ---
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 states the pain starts in her L chest and radiates to her L shoulder, back, and neck. Heating pad makes it better and states nothing makes it worse. Pt reports she called Dr Saleh office that advised her to go to the [facility] and the [facility] advised she come to the ED for a cardiac workup. AAOx3, NSR 80's, mild pain at this time. No new meds or swelling noted.
[2021-08-18 15:54] LABS: Alanine Aminotransferase 26 IU/L (<35); Albumin 4.7 g/dL (3.5-5.0); Albumin Globulin Ratio 1.3 (1.0-2.8); Alkaline Phosphatase 92 U/L (38-126); Aspartate Aminotransferase 34 IU/L (14-36); BUN Creatinine Ratio 17.7 (6-22); Bilirubin Total 0.7 mg/dL (0.2-1.3); Blood Urea Nitrogen 17 mg/dL (7-17); Calcium 9.6 mg/dL (8.4-10.2); Carbon Dioxide 29 mmol/L (22-32); Chloride 105 mmol/L (98-107); Creatine Kinase 129 U/L (30-135); Estimated Glomerular Filt Rate > 60 mL/min (>60); Globulin 3.7 g/dL (1.7-4.1); Glucose 79 mg/dL (80-110); HEMOLYSIS 21 (0-50); Lipase 159 U/L (23-300); Magnesium 2.3 mg/dL (1.6-2.3); Potassium 4.4 mmol/L (3.4-5.1); Sodium 141 mmol/L (137-145); Total Protein 8.4 g/dL (6.3-8.2)
--- NOTE | 2021-08-18 15:57 | ED_ITS ---
HPI - Chest Pain General Chief Complaint: Chest Pain Stated Complaint: CHEST PAIN BACK PAIN AND LT ARM PAIN Time Seen by Provider: 08/18/21 15:36 Source: patient and family Mode of arrival: Wheelchair History of Present Illness HPI narrative: The patient presents with left upper, anterior chest pain for 2 days. Pain is only slightly modified with left shoulder motion. There is no neck pain. She does have left back pain. She denies dyspnea, or palpitations. She has no obvious history of coronary disease. She has MS, and scoliosis. Her last week was quite stressful. She prepared 3 separate meals for [employer]. She apparently had a large knot, muscle spasm in her left back yesterday. The knot has reduced with the pads. She passed a cardiac stress test about 10 years ago. She denies recent illness. Had no head cold symptoms, no sore throat or fever. She is not coughing. She has no orthopnea or lower extremity edema. She takes omeprazole for a large hiatal hernia. She is not having GI symptoms. Echocardiogram 12/19 revealed a normal LV with EF of 55-60%. Normal right ventricular size and function. Prolapse of the posterior mitral valve leaflet. Mild to moderate mitral regurgitation. Mild aortic stenosis. Elevated diastolic filling pressures. Related Data Home Medications Medication Instructions Recorded Confirmed ascorbic acid (vitamin C) 500 mg 500 mg PO DAILY 09/03/18 09/03/18 capsule,extended release (Vitamin C) cholecalciferol (vitamin D3) 25 1,000 unit PO DAILY 09/03/18 09/03/18 mcg (1,000 unit) tablet (Vitamin D3) chromium picolinate 400 mcg tablet 400 mcg PO DAILY 09/03/18 09/03/18 coenzyme Q10 100 mg capsule 100 mg PO DAILY 09/03/18 09/03/18 (CoQ-10) cyclosporine 0.05 % eye drops in a 1 drp EYE-BOTH BID 09/03/18 09/03/18 dropperette (Restasis) ferrous sulfate 325 mg (65 mg 325 mg PO QTUTHSA 09/03/18 09/03/18 iron) tablet (Iron (ferrous sulfate)) hydrocodone 5 mg-acetaminophen 325 1 tab PO Q6H PRN 09/03/18 09/03/18 mg tablet ([place]) omega-3 fatty acids-fish oil 300 1 cap PO BID 09/03/18 09/03/18 mg-1,000 mg capsule (Fish Oil) prasterone (dhea) 25 mg capsule 10 mg PO DAILY 09/03/18 09/03/18 (DHEA) progesterone micronized 100 mg 140 mg PO QAM 09/03/18 09/03/18 capsule ranitidine HCl 150 mg tablet 150 mg PO DAILY 09/03/18 09/03/18 selenium 100 mcg tablet 100 mcg PO DAILY 09/03/18 09/03/18 thyroid (pork) 15 mg tablet 16.25 mg PO DAILY 09/03/18 09/03/18 ([facility] Thyroid) Previous Rx's Medication Instructions Recorded pantoprazole 40 mg tablet,delayed 40 mg PO DAILY #30 tab 09/05/18 release sucralfate 1 gram tablet 1 gram PO QACHS #56 tab 09/05/18 Allergies Allergy/AdvReac Type Severity Reaction Status Date / Time codeine Allergy Unknown UNK BY PT Verified 09/04/18 13:41 Penicillins Allergy Unknown UNK BY PT Verified 09/04/18 13:41 Zlpprav-ZRU-QeA Reductase Allergy Unknown UNK BY PT Verified 09/04/18 13:41 Inhibitor [Ldcrzwp-Xul-Aaz Reductase Inhibitor] Sulfa (Sulfonamide Allergy Unknown UNK BY PT Verified 09/04/18 13:41 Antibiotics) UNKNOWN ANTIBIOTIC Allergy Unknown Uncoded 08/09/17 11:47 Review of Systems Review of Systems ROS Unobtainable: All systems reviewed & are unremarkable except as noted in HPI and below Constitutional Constitutional: Denies anorexia, Denies body ache(s), Denies chills, Denies fatigue, Denies fever(s), Denies frequent falls and Denies headache(s) Eyes Eyes: Denies change in vision ENT Ears, Nose, Mouth, and Throat: Denies vertigo, Denies dizziness, Denies headache(s), Denies odynophagia, Denies sinus pressure, Denies sore throat and Denies throat swelling Cardiovascular Cardiovascular: Denies syncope and Denies dyspnea Comments: Left anterior chest pain as noted above. Respiratory Respiratory: Denies chest congestion, Denies cough, Denies hemoptysis and Denies dyspnea Gastrointestinal Gastrointestinal: Denies belching, Denies loose stools, Denies nausea and Denies odynophagia Genitourinary Genitourinary: Denies dysuria Musculoskeletal Musculoskeletal: Denies arthralgias, Reports back pain, Denies arthralgias, Denies joint swelling and Denies limited range of motion Integumentary/Breasts Skin/Breast: Denies rash and Denies skin pain Neurologic Neurologic: Denies confusion, Denies vertigo, Denies dizziness, Denies syncope, Denies frequent falls and Denies headache(s) Psychiatric Psychiatric: Denies anxiety, Denies confusion and Denies depression Endocrine Endocrine: Denies fatigue Hematologic/Lymphatic On Anticoagulants: No Allergic/Immunologic Allergic/Immunologic: Denies throat swelling Patient History Medical History (Updated 08/18/21 @ 17:14 by Parviz Worthington MD) Heart murmur Hiatal hernia History of optic neuritis Hypothyroidism Incontinence of urine Iron (Fe) deficiency anemia Mitral regurgitation Multiple sclerosis Osteoporosis Surgical History Status post hip hemiarthroplasty Family History Mother Stroke Social History household members: spouse Smoking Status: Never smoker alcohol intake: current Smoking Status: Never smoker alcohol intake frequency: holidays/special occasions only Substance Use Type: does not use Exam Initial Vital Signs Initial Vital Signs: Vital Signs Temperature 97.5 F L 08/18/21 15:07 Pulse Rate 57 L 08/18/21 15:07 Respiratory Rate 18 08/18/21 15:07 Blood Pressure 186/79 H 08/18/21 15:07 Pulse Oximetry 99 08/18/21 15:07 Const General: cooperative, comfortable, well groomed and No acute distress [facility] Head: normocephalic and atraumatic Face and sinus: normal facial exam and sinuses nontender Mouth: oral mucosae normal Throat: posterior oropharynx normal Eyes General: appearance normal, both eyes and all related structures Pupils: PERRL EOM: EOM intact bilaterally Neck Neck: full ROM, supple, No lymphadenopathy and No tender Chest Chest: normal inspection of the chest Other: No significant reproducible left chest tenderness. Resp Effort & Inspection: normal respiratory effort Auscultation: clear to auscultation bilaterally Percussion: percussion normal Cardio Rate: regular rate Rhythm: regular rhythm Heart Sounds: S1 normal, S2 normal, no click, no murmurs and no rubs Bruits: no abdominal aortic bruits GI Palpation: soft, No hepatomegaly, No mass and No tender Auscultation: normal bowel sounds Back/Spine/Pelvis Other: Scoliosis and kyphosis. Left thoracic paraspinal spasm with mild tenderness. Skin General: no rashes or lesions noted Neuro General: patient alert, patient awake, patient oriented x3 and no focal motor deficits Extrem General: normal to inspection, full ROM, no pedal edema and no calf tenderness Psych Mental Status: mental status grossly normal Course Course Course Narrative: Cardiac workup is seemingly benign. However, she is a 81-year-old lady with poorly defined etiology for the chest pain, there are multiple potential issues. I do recommended a stress test. Otherwise shaking Tylenol for back pain. She is on omeprazole for her hiatal hernia. She has chronic pain issues with the EMS and scoliosis. She is I advised to follow-up withher PCM, but should return here if symptoms escalate. Orders Ordered: ED Orders 08/18/21 15:12 XR chest 1V Stat EKG-12 Lead Stat 08/18/21 15:30 Complete Blood Count AUTO DIFF Stat Comprehensive Metabolic Panel Stat Lipase Stat Magnesium Stat Troponin & CK Cardiac Panel Stat Vital Signs Vital signs: Vital Signs - 8 hr 08/18/21 15:07 08/18/21 15:33 08/18/21 15:34 Temperature 97.5 F L Pulse Rate 57 L 64 64 Respiratory Rate 18 Blood Pressure 186/79 H 196/84 H Pulse Oximetry 99 98 97 MDM - Chest Pain Lab Data Result diagrams: 08/18/21 15:30 08/18/21 15:30 Labs: Lab Results 08/18/21 08/18/21 Range/Units 15:30 15:30 WBC 5.4 (4.5-11.0) X10^3/uL RBC 5.13 (4.0-5.2) X10^6/uL Hgb 16.2 H (12.0-16.0) g/dL Hct 46.9 H (36-46) % MCV 91.4 (80-100) fL MCH 31.7 (26-34) PG MCHC 34.6 (30-36) % RDW 13.7 (11.6-14.8) % Plt Count 189 (150-400) X10^3/uL Neut % (Auto) 50.7 (50-75) % Lymph % (Auto) 33.9 (25-40) % [place] % (Auto) 9.4 (3-14) % Eos % (Auto) 4.4 H (2-4) % Baso % (Auto) 1.6 (0-2) % Neut # (Auto) 2700 (7535-3919) /uL Lymph # (Auto) 1800 (6628-9525) /uL [place] # (Auto) 500 (0-900) /uL Eos # (Auto) 200 (0-450) /uL Baso # (Auto) 100 (0-100) /uL Sodium 141 (137-145) mmol/L Potassium 4.4 (3.4-5.1) mmol/L Chloride 105 (98-107) mmol/L Carbon Dioxide 29 (22-32) mmol/L BUN 17 (7-17) mg/dL Creatinine 0.96 (0.52-1.04) mg/dL Estimated GFR > 60 (>60) mL/min BUN/Creatinine Ratio 17.7 (6-22) Glucose 79 L (80-110) mg/dL Calcium 9.6 (8.4-10.2) mg/dL Magnesium 2.3 (1.6-2.3) mg/dL Total Bilirubin 0.7 (0.2-1.3) mg/dL AST 34 (14-36) IU/L ALT 26 (<35) IU/L Alkaline Phosphatase 92 (38-126) U/L Total Creatine Kinase 129 (30-135) U/L CK-MB (CK-2) 2.06 (<2.37) ng/mL CK-MB (CK-2) Rel Index 1.6 (1.5-5.0) % Troponin I < 0.012 (0.01-0.034) ng/mL Total Protein 8.4 H (6.3-8.2) g/dL Albumin 4.7 (3.5-5.0) g/dL Globulin 3.7 (1.7-4.1) g/dL Albumin/Globulin Ratio 1.3 (1.0-2.8) Lipase 159 (23-300) U/L Imaging Data Chest x-ray: Radiologist's Impression: No acute cardiopulmonary findings Moderate hiatal hernia, thoracolumbar dextroscoliosis, old healed right-sided rib fractures ? ECG Data Attestation: I personally reviewed and interpreted this ECG as follows: (Sinus bradycardia rate 54 beats per minute. LVH. Nonspecific ST T wave changes in the anterior leads. Normal intervals. No ectopy.) Discharge Plan Departure Patient Disposition: Home Clinical Impression: Atypical chest pain, Scoliosis, Hernia, hiatal, Acute thoracic myofascial strain Instructions: DI for Atypical Chest Pain Activity Restrictions/Additional Instructions: There is no evidence of acute cardiac issues. However, you have poorly defined chest pain. The pain can be from strain, associated with your back strain. You have scoliosis. You have a hiatal hernia. There are potential multiple causes for any chest pain you may experience. Tylenol 2 tablets every 4 hours as needed for pain. Baby aspirin 1 daily. Contact her doctor tomorrow. I suggest a nuclear stress test to assure your heart is not associated with the pain you experience. Return here if you have significant return of pain. Prescriptions: No Action thyroid (pork) [[facility] Thyroid] 15 mg Tablet 16.25 mg PO DAILY 0RF omega-3 fatty acids-fish oil [Fish Oil] 300-1,000 mg Capsule 1 cap PO BID 0RF hydrocodone-acetaminophen [[place]] 5-325 mg Tablet 1 tab PO Q6H PRN (Reason: pain) 0RF prasterone (dhea) [DHEA] 25 mg Capsule 10 mg PO DAILY 0RF ferrous sulfate [Iron (ferrous sulfate)] 325 mg (65 mg iron) Tablet 325 mg PO QTUTHSA 0RF Label Comments: hasn't taken for months ranitidine HCl 150 mg Tablet 150 mg PO DAILY 0RF ascorbic acid (vitamin C) [Vitamin C] 500 mg Capsule, Extended Release 500 mg PO DAILY 0RF selenium 100 mcg Tablet 100 mcg PO DAILY 0RF coenzyme Q10 [CoQ-10] 100 mg Capsule 100 mg PO DAILY 0RF Restasis 0.05 % Dropperette 1 drp EYE-BOTH BID 0RF cholecalciferol (vitamin D3) [Vitamin D3] 1,000 unit Tablet 1,000 unit PO DAILY 0RF chromium picolinate 400 mcg Tablet 400 mcg PO DAILY 0RF progesterone micronized 100 mg Capsule 140 mg PO QAM 0RF sucralfate 1 gram tablet 1 gram PO QACHS Qty: 56 0RF pantoprazole 40 mg Tablet,Delayed Release (Dr/Ec) 40 mg PO DAILY Qty: 30 0RF Referrals: Brice Ba MD [Primary Care Provider] -
[2021-08-18 16:04] LABS: Troponin I < 0.012 ng/mL (0.01-0.034)
[2021-08-18 16:09] LABS: CKMB % Relative Index 1.6 % (1.5-5.0); Creatine Kinase MB 2.06 ng/mL (<2.37)
[2021-08-18] MEDS: ASPIRIN 81 MG CHEW TAB 324 MG PO (17:05)
== END 2021-08-18 17:19 | disposition home or self-care (01) ==
PROVIDERS: Emergency Provider Emergency Medicine; PCP Internal Medicine
DX: R07.89 Other chest pain (principal); S29.012A Strain of muscle and tendon of back wall of thorax, initial encounter; X58.XXXA Exposure to other specified factors, initial encounter
CPT/HCPCS: 36415; 71045; 80053; 82550; 82553; 83690; 83735; 84484; 85025; 93005; 99284

== ENCOUNTER 2021-10-02 13:25 | Emergency (ER) | payer MEDICARE, SELFPAY ==
[2018-09-03 17:23] VITALS: BMI 25.8
[2021-10-02] VITALS (9 sets, daily range): BP systolic 143–162; BP diastolic 65–75; PULSE 55–61; RESP 8–28; TEMP 37.1; O2SAT 94–97; BMI 26.6
--- NOTE | 2021-10-02 14:05 | DI.CT.S_ITS ---
PROCEDURE: CT ABDOMEN PELVIS W CON INDICATIONS: rt pelvic pain, dark stool, hx hiatal hernia, hx fibroidsm TECHNIQUE: After the administration of intravenous contrast, axial sections acquired from the lung bases to the pubic symphysis. Coronal and sagittal reformats were performed. For radiation dose reduction, the following was used: automated exposure control, adjustment of mA and/or kV according to patient size. COMPARISON: [facility], CT, CT KIDNEY URETER BLADDER (KUB), 10/18/2018, 13:14. [facility], CT, ABDOMEN/PELVIS WITH CONTRAST, 04/01/2016, 23:14. FINDINGS: Image quality: Excellent. Lung bases: Stable interstitial changes of the lung bases. No focal consolidation or pneumothorax. Mild basilar atelectasis. Large hiatal hernia including fat and stomach. No adjacent inflammation. Heart: No significant findings. ABDOMEN: Liver: Simple appearing left hepatic lobe cyst is again noted. Additional smaller hypodense lesions too small to further characterize but statistically represent simple cysts versus small hemangiomas. Gallbladder: Punctate hyperdense gallstones. No wall thickening or surrounding inflammation to suggest cholecystitis. Biliary ducts: Unremarkable. Pancreas: Unremarkable. Spleen: Unremarkable. Adrenal Glands: Unremarkable. Kidneys and Ureters: Normal enhancement. Stable left-sided simple cysts. Bilateral large renal calcifications. The largest on the right measures 1.3 by 1.0 cm within the distal aspect of the urinary pelvis. The largest within the right kidney in the lower pole measures 1.2 by 0.9 cm. No hydronephrosis. No surrounding inflammation. Ureters are normal in course and caliber. Stomach and Bowel: Large hiatal hernia. Small bowel is without evidence of obstruction. No wall thickening or surrounding inflammation. Colonic diverticulosis most prominent within the sigmoid colon. No adjacent inflammation. Peritoneum: No abnormal intraperitoneal fluid. No free air. Ventral Wall: Small fat containing umbilical hernia. Abdominal Nodes: No retroperitoneal or mesenteric adenopathy by size criteria. Vessels: Aorta and inferior vena cava are normal in size. Vascular calcifications noted throughout the aorta and branch vessels. PELVIS: Pelvic Organs: Unremarkable. Bladder: Unremarkable. Pelvic Nodes: No enlarged lymph nodes. Miscellaneous: Small fat containing right inguinal hernia. Bones: Right total hip arthroplasty. Degenerative changes of the left hip and spine. Grade 1 anterolisthesis of L4 on L5. No acute osseous abnormality or aggressive appearing osseous lesion. Multiple remote right-sided rib fractures. IMPRESSION: No acute intra-abdominal abnormality. Large hiatal hernia without evidence to suggest complication. Multiple large nonobstructing nephroliths. Cholelithiasis. Diverticulosis. Additional chronic findings as above. Dictated by: Maninder Graham D.O. on 10/02/2021 at 13:57 Approved by: Maninder Graham D.O. on 10/02/2021 at 14:06
[2021-10-02] MEDS: PANTOPRAZOLE 40 MG VIAL IV (14:07)
[2021-10-02 14:10] LABS: Alanine Aminotransferase 35 IU/L (<35); Albumin 3.9 g/dL (3.5-5.0); Albumin Globulin Ratio 1.3 (1.0-2.8); Alkaline Phosphatase 73 U/L (38-126); Aspartate Aminotransferase 36 IU/L (14-36); BUN Creatinine Ratio 14.3 (6-22); Bilirubin Total 0.4 mg/dL (0.2-1.3); Blood Urea Nitrogen 12 mg/dL (7-17); Calcium 8.4 mg/dL (8.4-10.2); Carbon Dioxide 23 mmol/L (22-32); Chloride 107 mmol/L (98-107); Estimated Glomerular Filt Rate > 60 mL/min (>60); Glucose 149 mg/dL (80-110); HEMOLYSIS < 15 (0-50); Potassium 3.5 mmol/L (3.4-5.1); Sodium 137 mmol/L (137-145); Total Protein 6.9 g/dL (6.3-8.2)
[2021-10-02 14:14] LABS: Add Manual Diff / Slide Review NO; Basophils Absolute Auto 0 /uL (0-100); Basophils Percent Auto 1.1 % (0-2); Eosinophils Absolute Auto 0 /uL (0-450); Eosinophils Percent Auto 1.4 % (2-4); Hematocrit 41.3 % (36-46); Hemoglobin 14.4 g/dL (12.0-16.0); Lymphocytes Absolute Auto 900 /uL (1100-4500); Lymphocytes Percent Auto 30.9 % (25-40); Mean Corpuscular HGB Conc 34.8 % (30-36); Mean Corpuscular Hemoglobin 31.8 PG (26-34); Mean Corpuscular Volume 91.5 fL (80-100); Monocytes Absolute Auto 400 /uL (0-900); Monocytes Percent Auto 13.5 % (3-14); Neutrophils Absolute Auto 1600 /uL (1500-7000); Neutrophils Percent Auto 53.1 % (50-75); Platelet Count 143 X10^3/uL (150-400); Red Blood Cell Count 4.51 X10^6/uL (4.0-5.2); Red Cell Distribution Width 13.6 % (11.6-14.8)
--- NOTE | 2021-10-02 14:37 | ED_ITS ---
HPI - Abdominal Pain <YOANA Barajas - Last Filed: 10/02/21 19:24> General Chief Complaint: Abdominal Pain Stated Complaint: States hiatal hernia bleeding Time Seen by Provider: 10/02/21 13:52 Source: patient Mode of arrival: Ambulatory History of Present Illness HPI narrative: This is a 81-year-old female with history of hiatal hernia, GERD, and multiple sclerosis who presents to the emergency department complaining of right pelvic pain and dark black colored/possible blood stools over the last six days. Patient states she had a stressful week last week and was not taking her Protonix because she was traveling an she returned and has not taken Protonix yet today endorses having loose stools but not having any diarrhea, nausea vomiting, fever, chills, lightheadedness, dizziness. She endorses having right sided pelvic pain with a history of vaginal bleeding she says is related to fibroids. Patient states her primary care provider is Dr. Ba and he has been monitoring her for this. She denies having any painful bowel movements, dysuria, flank pain, urinary frequency or urgency. Patient denies having any epigastric pain, reports she is tolerating PO intake without nausea but hasn't drank much water today. She states she took her medications this morning but that was it. Patient denies any abdominal surgeries in the past. Related Data Home Medications Medication Instructions Recorded Confirmed ascorbic acid (vitamin C) 500 mg 500 mg PO DAILY 09/03/18 08/20/21 capsule,extended release (Vitamin C) cholecalciferol (vitamin D3) 25 1,000 unit PO DAILY 09/03/18 08/20/21 mcg (1,000 unit) tablet (Vitamin D3) chromium picolinate 400 mcg tablet 400 mcg PO DAILY 09/03/18 08/20/21 coenzyme Q10 100 mg capsule 100 mg PO DAILY 09/03/18 08/20/21 (CoQ-10) ferrous sulfate 325 mg (65 mg 325 mg PO QTUTHSA 09/03/18 08/20/21 iron) tablet (Iron (ferrous sulfate)) omega-3 fatty acids-fish oil 300 1 cap PO BID 09/03/18 08/20/21 mg-1,000 mg capsule (Fish Oil) prasterone (dhea) 25 mg capsule 10 mg PO DAILY 09/03/18 08/20/21 (DHEA) progesterone micronized 100 mg 140 mg PO QAM 09/03/18 08/20/21 capsule selenium 100 mcg tablet 100 mcg PO DAILY 09/03/18 08/20/21 thyroid (pork) 15 mg tablet 16.25 mg PO DAILY 09/03/18 08/20/21 ([place] Thyroid) Previous Rx's Medication Instructions Recorded pantoprazole 40 mg tablet,delayed 40 mg PO DAILY #30 tab 09/05/18 release sucralfate 1 gram tablet 1 gram PO QACHS #56 tab 09/05/18 fluticasone furoate 27.5 1 spray INTRANASAL DAILY #9.1 ml 10/02/21 mcg/actuation nasal spray,suspension guaifenesin 400 mg tablet 400 mg PO TID PRN #20 tab 10/02/21 nirmatrelvir 300 mg (150 mg x See Rx Instructions .ROUTE 10/02/21 2)-ritonavir 100 mg tablet (EUA) .COMPLEX #30 tab (Paxlovid 300 mg () Allergies Allergy/AdvReac Type Severity Reaction Status Date / Time codeine Allergy Unknown UNK BY PT Verified 08/20/21 08:20 Penicillins Allergy Unknown UNK BY PT Verified 08/20/21 08:20 Gzrxooz-PJB-AtV Reductase Allergy Unknown UNK BY PT Verified 08/20/21 08:20 Inhibitor [Mcbwnrc-Gom-Reb Reductase Inhibitor] Sulfa (Sulfonamide Allergy Unknown UNK BY PT Verified 08/20/21 08:20 Antibiotics) UNKNOWN ANTIBIOTIC Allergy Unknown Uncoded 08/20/21 08:20 Review of Systems <YOANA Barajas - Last Filed: 10/02/21 19:24> Review of Systems Narrative: General: denies fever, chills Head/Neck: denies headache, neck pain Eyes: denies visual changes, eye pain Cardio: denies chest pain, palpitations Respiratory: denies shortness of breath, cough GI: Endorses right lower quadrant/pelvic pain, endorses black stool, denies any nausea, vomiting, or diarrhea : denies dysuria, hematuria or flank pain MSK: denies new joint pain, muscle weakness or swelling Skin: denies rash, itching or wound Neuro: denies numbness, tingling, dizziness Patient History <YOANA Barajas - Last Filed: 10/02/21 19:24> Medical History GERD without esophagitis Heart murmur Hiatal hernia History of optic neuritis Hypothyroidism Incontinence of urine Iron (Fe) deficiency anemia Left supraspinatus tendinitis Mitral regurgitation Multiple sclerosis Osteoporosis Surgical History Status post hip hemiarthroplasty Family History Mother Stroke Social History household members: spouse Smoking Status: Never smoker alcohol intake: current Smoking Status: Never smoker alcohol intake frequency: holidays/special occasions only Substance Use Type: does not use Exam <YOANA Barajas - Last Filed: 10/02/21 19:24> Narrative Exam Narrative: Independently reviewed vitals signs and nursing notes. General: cooperative, comfortable, in no acute distress, well groomed Head: atraumatic, symmetrical facial expressions Neck: supple Eyes: equal round and reactive, EOMI, conjunctiva normal Nose: nares patent, no rhinorrhea Mouth/Throat: moist mucus membranes Cardiovascular: regular rate and rhythm, systolic murmur, no peripheral edema, warm extremities Respiratory: normal effort, able to speak in complete sentences, no audible wheezing, stridor, or rales. No retractions or tachypnea. GI: abdomen soft, tender to palpation over right ovary, nondistended, no masses, no exquisite tenderness with exam, without guarding or rebound. MSK: moves all extremities, neurovascularly intact, no weakness, normal tone Skin: brisk capillary refill, no rash, no erythema Neuro: normal speech and cognition, A&O x3 Psych: mental status is grossly normal, congruent mood, normal affect, pleasant and cooperative Initial Vital Signs Initial Vital Signs: Vital Signs Temperature 98.8 F 10/02/21 13:26 Pulse Rate 61 10/02/21 13:26 Respiratory Rate 17 10/02/21 13:26 Blood Pressure 143/73 H 10/02/21 13:26 Pulse Oximetry 97 10/02/21 13:26 <Charlie Ponce DO - Last Filed: 10/03/21 07:05> Initial Vital Signs Initial Vital Signs: Vital Signs Temperature 98.8 F 10/02/21 13:26 Pulse Rate 61 10/02/21 13:26 Respiratory Rate 17 10/02/21 13:26 Blood Pressure 143/73 H 10/02/21 13:26 Pulse Oximetry 97 10/02/21 13:26 Course <YOANA Barajas - Last Filed: 10/02/21 19:24> Orders Ordered: Discontinued Medications Pantoprazole Sodium (Pantoprazole 40 Mg Vial) 40 mg IV NOW ONE Stop: 10/02/21 13:55 Last Admin: 10/02/21 14:07 Dose: 40 mg Documented by: ADRIANO Vital Signs Vital signs: Vital Signs - 8 hr 10/02/21 13:26 10/02/21 14:14 10/02/21 14:15 Temperature 98.8 F Pulse Rate 61 57 L 57 L Respiratory Rate 17 13 8 L Blood Pressure 143/73 H 143/71 H Pulse Oximetry 97 96 94 10/02/21 14:30 10/02/21 14:47 10/02/21 15:00 Temperature Pulse Rate 55 L 55 L 55 L Respiratory Rate 15 18 28 H Blood Pressure 143/75 H 158/72 H Pulse Oximetry 94 96 96 10/02/21 15:01 10/02/21 15:30 10/02/21 15:31 Temperature Pulse Rate 55 L 55 L 56 L Respiratory Rate 18 22 21 Blood Pressure 162/65 H 146/70 H Pulse Oximetry 95 94 95 <Charlie Ponce DO - Last Filed: 10/03/21 07:05> Orders Ordered: Discontinued Medications Pantoprazole Sodium (Pantoprazole 40 Mg Vial) 40 mg IV NOW ONE Stop: 10/02/21 13:55 Last Admin: 10/02/21 14:07 Dose: 40 mg Documented by: ADRIANO Vital Signs Vital signs: Vital Signs - 8 hr 10/02/21 13:26 10/02/21 14:14 10/02/21 14:15 Temperature 98.8 F Pulse Rate 61 57 L 57 L Respiratory Rate 17 13 8 L Blood Pressure 143/73 H 143/71 H Pulse Oximetry 97 96 94 10/02/21 14:30 10/02/21 14:47 10/02/21 15:00 Temperature Pulse Rate 55 L 55 L 55 L Respiratory Rate 15 18 28 H Blood Pressure 143/75 H 158/72 H Pulse Oximetry 94 96 96 10/02/21 15:01 10/02/21 15:30 10/02/21 15:31 Temperature Pulse Rate 55 L 55 L 56 L Respiratory Rate 18 22 21 Blood Pressure 162/65 H 146/70 H Pulse Oximetry 95 94 95 MDM - Abdominal Pain <NOREEN BarajasP - Last Filed: 10/02/21 19:24> Lab Data Result diagrams: 10/02/21 13:39 10/02/21 13:39 Labs: Lab Results 10/02/21 10/02/21 10/02/21 Range/Units 13:39 13:39 13:39 WBC 3.0 L (4.5-11.0) X10^3/uL RBC 4.51 (4.0-5.2) X10^6/uL Hgb 14.4 (12.0-16.0) g/dL Hct 41.3 (36-46) % MCV 91.5 (80-100) fL MCH 31.8 (26-34) PG MCHC 34.8 (30-36) % RDW 13.6 (11.6-14.8) % Plt Count 143 L (150-400) X10^3/uL Neut % (Auto) 53.1 (50-75) % Lymph % (Auto) 30.9 (25-40) % [place] % (Auto) 13.5 (3-14) % Eos % (Auto) 1.4 L (2-4) % Baso % (Auto) 1.1 (0-2) % Neut # (Auto) 1600 (6079-7716) /uL Lymph # (Auto) 900 L (7239-7926) /uL [place] # (Auto) 400 (0-900) /uL Eos # (Auto) 0 (0-450) /uL Baso # (Auto) 0 (0-100) /uL Sodium 137 (137-145) mmol/L Potassium 3.5 (3.4-5.1) mmol/L Chloride 107 (98-107) mmol/L Carbon Dioxide 23 (22-32) mmol/L BUN 12 (7-17) mg/dL Creatinine 0.84 (0.52-1.04) mg/dL Estimated GFR > 60 (>60) mL/min BUN/Creatinine Ratio 14.3 (6-22) Glucose 149 H (80-110) mg/dL Calcium 8.4 (8.4-10.2) mg/dL Total Bilirubin 0.4 (0.2-1.3) mg/dL AST 36 (14-36) IU/L ALT 35 H (<35) IU/L Alkaline Phosphatase 73 (38-126) U/L Total Protein 6.9 (6.3-8.2) g/dL Albumin 3.9 (3.5-5.0) g/dL Globulin 3.0 (1.7-4.1) g/dL Albumin/Globulin Ratio 1.3 (1.0-2.8) Lipase 133 (23-300) U/L Chlamy pneumoniae PCR (Not Detect) Adenovirus (PCR) (Not Detect) B. pertussis DNA (PCR) (Not Detecte) B.parapertussis DNA PCR (Not Detecte) Coronavirus OC43 (PCR) (Not Detect) Coronavirus HKU1 (PCR) (Not Detect) Coronavirus 229E (PCR) (Not Detect) SARS-CoV-2 (PCR) (Not Detecte) Coronavirus NL63 (PCR) (Not Detect) Human Metapneumovir PCR (Not Detect) Influenza Type A (PCR) (Not Detect) Influenza Type B (PCR) (Not Detect) M. pneumoniae (PCR) (Not Detect) Parainfluenza 1 (PCR) (Not Detect) Parainfluenza 2 (PCR) (Not Detect) Parainfluenza 3 (PCR) (Not Detect) Parainfluenza 4 (PCR) (Not Detect) RSV (PCR) (Not Detect) Entero/Rhino (PCR) (Not Detect) 10/02/21 Range/Units 14:11 WBC (4.5-11.0) X10^3/uL RBC (4.0-5.2) X10^6/uL Hgb (12.0-16.0) g/dL Hct (36-46) % MCV (80-100) fL MCH (26-34) PG MCHC (30-36) % RDW (11.6-14.8) % Plt Count (150-400) X10^3/uL Neut % (Auto) (50-75) % Lymph % (Auto) (25-40) % [place] % (Auto) (3-14) % Eos % (Auto) (2-4) % Baso % (Auto) (0-2) % Neut # (Auto) (2282-8034) /uL Lymph # (Auto) (9901-1755) /uL [place] # (Auto) (0-900) /uL Eos # (Auto) (0-450) /uL Baso # (Auto) (0-100) /uL Sodium (137-145) mmol/L Potassium (3.4-5.1) mmol/L Chloride (98-107) mmol/L Carbon Dioxide (22-32) mmol/L BUN (7-17) mg/dL Creatinine (0.52-1.04) mg/dL Estimated GFR (>60) mL/min BUN/Creatinine Ratio (6-22) Glucose (80-110) mg/dL Calcium (8.4-10.2) mg/dL Total Bilirubin (0.2-1.3) mg/dL AST (14-36) IU/L ALT (<35) IU/L Alkaline Phosphatase (38-126) U/L Total Protein (6.3-8.2) g/dL Albumin (3.5-5.0) g/dL Globulin (1.7-4.1) g/dL Albumin/Globulin Ratio (1.0-2.8) Lipase (23-300) U/L Chlamy pneumoniae PCR Not detected (Not Detect) Adenovirus (PCR) Not detected (Not Detect) B. pertussis DNA (PCR) Not detected (Not Detecte) B.parapertussis DNA PCR Not detected (Not Detecte) Coronavirus OC43 (PCR) Not detected (Not Detect) Coronavirus HKU1 (PCR) Not detected (Not Detect) Coronavirus 229E (PCR) Not detected (Not Detect) SARS-CoV-2 (PCR) Detected H (Not Detecte) Coronavirus NL63 (PCR) Not detected (Not Detect) Human Metapneumovir PCR Not detected (Not Detect) Influenza Type A (PCR) Not detected (Not Detect) Influenza Type B (PCR) Not detected (Not Detect) M. pneumoniae (PCR) Not detected (Not Detect) Parainfluenza 1 (PCR) Not detected (Not Detect) Parainfluenza 2 (PCR) Not detected (Not Detect) Parainfluenza 3 (PCR) Not detected (Not Detect) Parainfluenza 4 (PCR) Not detected (Not Detect) RSV (PCR) Not detected (Not Detect) Entero/Rhino (PCR) Not detected (Not Detect) Imaging Data CT scan - abdomen/pelvis: Radiologist's Impression: PROCEDURE:? CT ABDOMEN PELVIS W CON ? INDICATIONS:? rt pelvic pain, dark stool, hx hiatal hernia, hx fibroidsm ? TECHNIQUE:? After the administration of intravenous contrast, axial sections acquired from the lung bases to the pubic symphysis.? Coronal and sagittal reformats were performed.? For radiation dose reduction, the following was used:? automated exposure control, adjustment of mA and/or kV according to patient size.? ? COMPARISON:? [facility], CT, CT KIDNEY URETER BLADDER (KUB), 10/18/2018, 13:14.? [facility], CT, ABDOMEN/PELVIS WITH CONTRAST, 04/01/2016, 23:14. ? FINDINGS:? Image quality:? Excellent.? ? Lung bases:? Stable interstitial changes of the lung bases.? No focal consolidation or pneumothorax.? Mild basilar atelectasis.? Large hiatal hernia including fat and stomach.? No adjacent inflammation. Heart:? No significant findings. ? ABDOMEN: Liver:? Simple appearing left hepatic lobe cyst is again noted.? Additional smaller hypodense lesions too small to further characterize but statistically represent simple cysts versus small hemangiomas.? Gallbladder:? Punctate hyperdense gallstones.? No wall thickening or surrounding inflammation to suggest cholecystitis. Biliary ducts:? Unremarkable.? ? Pancreas:? Unremarkable.? ? Spleen:? Unremarkable.? ? Adrenal Glands:? Unremarkable.? ? Kidneys and Ureters:? Normal enhancement.? Stable left-sided simple cysts.? Bilateral large renal calcifications.? The largest on the right measures 1.3 by 1.0 cm within the distal aspect of the urinary pelvis.? The largest within the right kidney in the lower pole measures 1.2 by 0.9 cm.? No hydronephrosis.? No surrounding inflammation.? Ureters are normal in course and caliber. ? Stomach and Bowel:? Large hiatal hernia.? Small bowel is without evidence of obstruction. ?No wall thickening or surrounding inflammation.? Colonic diverticulosis most prominent within the sigmoid colon.? No adjacent inflammation.? Peritoneum:? No abnormal intraperitoneal fluid.? No free air.? ? Ventral Wall: ? Small fat containing umbilical hernia. Abdominal Nodes:? No retroperitoneal or mesenteric adenopathy by size criteria.? Vessels:? Aorta and inferior vena cava are normal in size.? Vascular calcifications noted throughout the aorta and branch vessels. ? PELVIS: Pelvic Organs:? Unremarkable.? ? Bladder:? Unremarkable.? ? Pelvic Nodes: No enlarged lymph nodes.? Miscellaneous:? Small fat containing right inguinal hernia. ? Bones:? Right total hip arthroplasty.? Degenerative changes of the left hip and spine.? Grade 1 anterolisthesis of L4 on L5.? No acute osseous abnormality or aggressive appearing osseous lesion.? Multiple remote right-sided rib fractures. ? ? IMPRESSION:? ? No acute intra-abdominal abnormality. ? Large hiatal hernia without evidence to suggest complication. ? Multiple large nonobstructing nephroliths. ? Cholelithiasis. ? Diverticulosis. ? Additional chronic findings as above.? ? Dictated by: Maninder Graham D.O. on 10/02/2021 at 13:57 ? ? Approved by: Maninder Graham D.O. on 10/02/2021 at 14:06 ? ECG Data Interpretation: EKG independently reviewed by myself and reveals sinus bradycardia at 57 bpm with regular axis and intervals. No STEMI, ST segment changes, arrhythmia, or acute ischemic changes. MDM Narrative Medical decision making narrative: This is a 81-year-old female history of hiatal hernia, GERD, and multiple sclerosis who presents to the emergency department complaining of right pelvic pain and dark black colored/possible blood stools over the last six days after traveling out of the state, and now feels fatigued, has muscle aches, I runny nose, and a sore throat as well. She did not take her Protonix while she was on vacation, has a history of GERD with a hiatal hernia and has had gastritis in the past. CT scan obtained today for concern about her right lower quadrant/pelvic pain, patient endorsed that she occasionally has vaginal bleeding although not currently, and that she is having dark stools concerning for upper GI bleed, CT does not show any acute intra-abdominal abnormality, she does have a large hiatal hernia without evidence to suggest complication, multiple large nonobstructing nephroliths, cholelithiasis and diverticulosis without diverticulitis. Lab work is significant for leukopenia with a WBC count of 3.0, down from a baseline of five, thrombocytopenia with a platelet count of 143, down from baseline of 189, slightly decreased lymphocytes at 900, no gross electrolyte abnormalities, no elevation in liver enzymes, respiratory panel is positive for COVID-19. Patient did not have any anemia, Hemoccult was negative, patient was given 40 mg of IV Protonix because she did not take her Protonix today for presumed peptic ulcer which was possibly bleeding. Patient is tolerating p.o. without nausea and vomiting, her abnormal findings on her CBC are likely due to COVID infection. Discussed her findings with the patient, she is nontoxic appearing, without any shortness of breath, difficulty breathing, pre-existing lung condition, tachypnea, hypoxia, or tachycardia. She was prescribed Paxlovid due to her comorbidities and advanced age, encouraged her to take her Protonix 1 hour before all medications, there were no medication interactions found on her daily scheduled medications with Paxlovid. Encouraged her to follow-up closely with her primary care provider, schedule an endoscopy with Dr. Guerrero if she continues to have any GI bleeding, or return to the emergency department if she does. Encouraged her to stay hydrated, and treat her symptoms with [id number] medications like Tylenol for pain and fever, I prescribed her fluticasone for nasal congestion and guaifenesin for productive cough. Patient states understanding to her discharge instructions and return precautions. EKG shows sinus bradycardia without any arrhythmia or ST changes. Patient is appropriate and amenable to discharge home. Vital signs are stable on repeat examination is unremarkable. Patient has been informed of results. Patient has been given strict return to ER precautions for any new or worsening symptoms. Patient understands to follow up closely with outpatient providers as instructed. Patient understands plan and agrees to discharge home. All questions and concerns answered at this time. <Charlie Ponce, - Last Filed: 10/03/21 07:05> Lab Data Labs: Lab Results 10/02/21 10/02/21 10/02/21 Range/Units 13:39 13:39 13:39 WBC 3.0 L (4.5-11.0) X10^3/uL RBC 4.51 (4.0-5.2) X10^6/uL Hgb 14.4 (12.0-16.0) g/dL Hct 41.3 (36-46) % MCV 91.5 (80-100) fL MCH 31.8 (26-34) PG MCHC 34.8 (30-36) % RDW 13.6 (11.6-14.8) % Plt Count 143 L (150-400) X10^3/uL Neut % (Auto) 53.1 (50-75) % Lymph % (Auto) 30.9 (25-40) % [place] % (Auto) 13.5 (3-14) % Eos % (Auto) 1.4 L (2-4) % Baso % (Auto) 1.1 (0-2) % Neut # (Auto) 1600 (4098-0898) /uL Lymph # (Auto) 900 L (4267-8073) /uL [place] # (Auto) 400 (0-900) /uL Eos # (Auto) 0 (0-450) /uL Baso # (Auto) 0 (0-100) /uL Sodium 137 (137-145) mmol/L Potassium 3.5 (3.4-5.1) mmol/L Chloride 107 (98-107) mmol/L Carbon Dioxide 23 (22-32) mmol/L BUN 12 (7-17) mg/dL Creatinine 0.84 (0.52-1.04) mg/dL Estimated GFR > 60 (>60) mL/min BUN/Creatinine Ratio 14.3 (6-22) Glucose 149 H (80-110) mg/dL Calcium 8.4 (8.4-10.2) mg/dL Total Bilirubin 0.4 (0.2-1.3) mg/dL AST 36 (14-36) IU/L ALT 35 H (<35) IU/L Alkaline Phosphatase 73 (38-126) U/L Total Protein 6.9 (6.3-8.2) g/dL Albumin 3.9 (3.5-5.0) g/dL Globulin 3.0 (1.7-4.1) g/dL Albumin/Globulin Ratio 1.3 (1.0-2.8) Lipase 133 (23-300) U/L Chlamy pneumoniae PCR (Not Detect) Adenovirus (PCR) (Not Detect) B. pertussis DNA (PCR) (Not Detecte) B.parapertussis DNA PCR (Not Detecte) Coronavirus OC43 (PCR) (Not Detect) Coronavirus HKU1 (PCR) (Not Detect) Coronavirus 229E (PCR) (Not Detect) SARS-CoV-2 (PCR) (Not Detecte) Coronavirus NL63 (PCR) (Not Detect) Human Metapneumovir PCR (Not Detect) Influenza Type A (PCR) (Not Detect) Influenza Type B (PCR) (Not Detect) M. pneumoniae (PCR) (Not Detect) Parainfluenza 1 (PCR) (Not Detect) Parainfluenza 2 (PCR) (Not Detect) Parainfluenza 3 (PCR) (Not Detect) Parainfluenza 4 (PCR) (Not Detect) RSV (PCR) (Not Detect) Entero/Rhino (PCR) (Not Detect) 10/02/21 Range/Units 14:11 WBC (4.5-11.0) X10^3/uL RBC (4.0-5.2) X10^6/uL Hgb (12.0-16.0) g/dL Hct (36-46) % MCV (80-100) fL MCH (26-34) PG MCHC (30-36) % RDW (11.6-14.8) % Plt Count (150-400) X10^3/uL Neut % (Auto) (50-75) % Lymph % (Auto) (25-40) % [place] % (Auto) (3-14) % Eos % (Auto) (2-4) % Baso % (Auto) (0-2) % Neut # (Auto) (4250-3316) /uL Lymph # (Auto) (1654-3854) /uL [place] # (Auto) (0-900) /uL Eos # (Auto) (0-450) /uL Baso # (Auto) (0-100) /uL Sodium (137-145) mmol/L Potassium (3.4-5.1) mmol/L Chloride (98-107) mmol/L Carbon Dioxide (22-32) mmol/L BUN (7-17) mg/dL Creatinine (0.52-1.04) mg/dL Estimated GFR (>60) mL/min BUN/Creatinine Ratio (6-22) Glucose (80-110) mg/dL Calcium (8.4-10.2) mg/dL Total Bilirubin (0.2-1.3) mg/dL AST (14-36) IU/L ALT (<35) IU/L Alkaline Phosphatase (38-126) U/L Total Protein (6.3-8.2) g/dL Albumin (3.5-5.0) g/dL Globulin (1.7-4.1) g/dL Albumin/Globulin Ratio (1.0-2.8) Lipase (23-300) U/L Chlamy pneumoniae PCR Not detected (Not Detect) Adenovirus (PCR) Not detected (Not Detect) B. pertussis DNA (PCR) Not detected (Not Detecte) B.parapertussis DNA PCR Not detected (Not Detecte) Coronavirus OC43 (PCR) Not detected (Not Detect) Coronavirus HKU1 (PCR) Not detected (Not Detect) Coronavirus 229E (PCR) Not detected (Not Detect) SARS-CoV-2 (PCR) Detected H (Not Detecte) Coronavirus NL63 (PCR) Not detected (Not Detect) Human Metapneumovir PCR Not detected (Not Detect) Influenza Type A (PCR) Not detected (Not Detect) Influenza Type B (PCR) Not detected (Not Detect) M. pneumoniae (PCR) Not detected (Not Detect) Parainfluenza 1 (PCR) Not detected (Not Detect) Parainfluenza 2 (PCR) Not detected (Not Detect) Parainfluenza 3 (PCR) Not detected (Not Detect) Parainfluenza 4 (PCR) Not detected (Not Detect) RSV (PCR) Not detected (Not Detect) Entero/Rhino (PCR) Not detected (Not Detect) Discharge Plan Departure Patient Disposition: Home Clinical Impression: COVID-19, Thrombocytopenia GI (gastrointestinal bleed) Qualifiers: GI bleed type/associated pathology: melena Qualified Code(s): K92.1 - Melena Leukocytopenia Qualifiers: Leukopenia type: lymphocytopenia Qualified Code(s): D72.810 - Lymphocytopenia Instructions: Gastrointestinal Bleeding, DI for COVID-19 (Suspected or Conf irmed ) Activity Restrictions/Additional Instructions: *You have been diagnosed with COVID-19 and melena which is dark bloody stool. This is likely from GERD and is a bleeding ulcer, please continue to take 40 mg of Protonix starting tomorrow each day before any medications and wait 1 hour after medication before taking any other medicines. Please take packs lipid for COVID-19 according to the directions, this medicine well hopefully reduce your severity and course of symptoms from COVID-19. Please focus on staying hydrated, use Tylenol as needed for fever or muscle aches, avoid NSAIDs and ibuprofen. Please use Flonase morning and night, you may use NyQuil in the evening or take Zyrtec to help with any congestion symptoms. If you have a productive cough, you may try Mucinex, this can be helpful to thin your secretions. Please return to the emergency department for any new or worsening symptoms, difficulty breathing, or symptoms beyond your management at home. Please follow-up with Dr. Ba early next week about your symptoms and if you are still having any blood in your stool. *What to do: *Please continue to take your regular medications as directed. [ x] New medication prescriptions sent to your pharmacy: [Fred ] [ ] New medication written as a paper prescription [ ] No new medications given *Please follow up with your primary care provider in 2-3 days, call for an appointment. Let them know you were seen in the Emergency Department and that we asked that you be seen for follow-up. We will electronically transmit a record of today's note if your PCP is in our system *If you do not have a primary care provider please contact [phone] to establish care with one of the [facility] primary care providers. *Return to Emergency Department if you should have any new, worsening or concerning symptoms, such as [fever greater than 101F, chills, worsening pain, persistent vomiting or other bothersome symptoms] Prescriptions: New Paxlovid (EUA) 150 mg x 2- 100 mg tablet See Rx Instructions .ROUTE .COMPLEX Qty: 30 0RF Rx Instructions: take TWO 150 mg tablets of nirmatrelvir with ONE 100 mg tablet of ritonavir twice daily for 5 days fluticasone furoate 27.5 mcg/actuation spray,suspension 1 spray intranasal DAILY Qty: 9.1 0RF Rx Instructions: into each nostril guaifenesin 400 mg tablet 400 mg PO TID PRN (Reason: cough) Qty: 20 0RF No Action thyroid (pork) [[place] Thyroid] 15 mg Tablet 16.25 mg PO DAILY 0RF omega-3 fatty acids-fish oil [Fish Oil] 300-1,000 mg Capsule 1 cap PO BID 0RF prasterone (dhea) [DHEA] 25 mg Capsule 10 mg PO DAILY 0RF ferrous sulfate [Iron (ferrous sulfate)] 325 mg (65 mg iron) Tablet 325 mg PO QTUTHSA 0RF Label Comments: hasn't taken for months ascorbic acid (vitamin C) [Vitamin C] 500 mg Capsule, Extended Release 500 mg PO DAILY 0RF selenium 100 mcg Tablet 100 mcg PO DAILY 0RF coenzyme Q10 [CoQ-10] 100 mg Capsule 100 mg PO DAILY 0RF cholecalciferol (vitamin D3) [Vitamin D3] 1,000 unit Tablet 1,000 unit PO DAILY 0RF chromium picolinate 400 mcg Tablet 400 mcg PO DAILY 0RF progesterone micronized 100 mg Capsule 140 mg PO QAM 0RF sucralfate 1 gram tablet 1 gram PO QACHS Qty: 56 0RF pantoprazole 40 mg Tablet,Delayed Release (Dr/Ec) 40 mg PO DAILY Qty: 30 0RF Referrals: Nallely Austin MD [Physician] - (Please make an appointment with Dr. Austin if you are having vaginal bleeding) Brice Ba MD [Primary Care Provider] - Julien Guerrero MD [Physician] - (if GI bleed continues to schedule endoscopy) Visit Report Forms: Patient Portal/API <Charlie Ponce DO - Last Filed: 10/03/21 07:05> [facility] Dr Ponce Co-Sign Statement: I was available for consultation during this patient's emergency department visit. This chart is signed by myself for admini strative purposes only. I did not have direct contact with this patient during this visit. They were seen independently by the APC.
[2021-10-02 14:43] LABS: Lipase 133 U/L (23-300)
[2021-10-02 15:05] LABS: Adenovirus Not Detected (Not Detect); B. parapertussis Not Detected (Not Detecte); Bordetella pertussis Not Detected (Not Detecte); Chlamydophila pneumoniae Not Detected (Not Detect); Coronavirus 229E Not Detected (Not Detect); Coronavirus HKU1 Not Detected (Not Detect); Coronavirus NL 63 Not Detected (Not Detect); Coronavirus OC43 Not Detected (Not Detect); Human Metapneumovirus Not Detected (Not Detect); Human Rhinovirus/Enterovirus Not Detected (Not Detect); Influenza A Not Detected (Not Detect); Influenza B Not Detected (Not Detect); Mycoplasma pneumoniae Not Detected (Not Detect); Parainfluenza Virus 1 Not Detected (Not Detect); Parainfluenza Virus 2 Not Detected (Not Detect); Parainfluenza Virus 3 Not Detected (Not Detect); Parainfluenza Virus 4 Not Detected (Not Detect); Respiratory Syncytial Virus Not Detected (Not Detect); SARS- CoV-2 Detected (Not Detecte)
== END 2021-10-02 15:55 | disposition home or self-care (01) ==
PROVIDERS: Emergency Medicine; Emergency Provider Nurse Practitioner Critical Care Medicine; PCP Internal Medicine; Referring Provider Internal Medicine Cardiovascular Disease
DX: U07.1 COVID-19 (principal); D69.6 Thrombocytopenia, unspecified; K92.1 Melena; D72.810 Lymphocytopenia; R00.1 Bradycardia, unspecified; R03.0 Elevated blood-pressure reading, without diagnosis of hypertension
CPT/HCPCS: 36415; 74177; 80053; 83690; 85025; 87633; 93005; 93010; 96374; 99284; C9113; Q9967

== ENCOUNTER → 2022-02-01 14:35 | Outpatient (CLI) | payer MEDICARE, SELFPAY ==
[2021-12-22 14:38] VITALS: BMI 25.8
== END ==
PROVIDERS: PCP Internal Medicine; Referring Provider Internal Medicine; Visit Provider Internal Medicine
DX: M81.0 Age-related osteoporosis without current pathological fracture (principal); Z78.0 Asymptomatic menopausal state; Z79.890 Hormone replacement therapy
CPT/HCPCS: 77080

== ENCOUNTER → 2022-02-09 17:08 | Outpatient (CLI) | payer MEDICARE, SELFPAY ==
[2021-12-22 14:38] VITALS: BMI 25.8
[2022-02-09 18:12] LABS: Alanine Aminotransferase 23 IU/L (<35); Albumin 4.1 g/dL (3.5-5.0); Albumin Globulin Ratio 1.3 (1.0-2.8); Alkaline Phosphatase 76 U/L (38-126); Aspartate Aminotransferase 26 IU/L (14-36); BUN Creatinine Ratio 17.9 (6-22); Bilirubin Total 0.7 mg/dL (0.2-1.3); Blood Urea Nitrogen 17 mg/dL (7-17); Calcium 9.2 mg/dL (8.4-10.2); Carbon Dioxide 29 mmol/L (22-32); Chloride 102 mmol/L (98-107); Estimated Glomerular Filt Rate > 60 mL/min (>60); Globulin 3.2 g/dL (1.7-4.1); Glucose 92 mg/dL (80-110); HEMOLYSIS < 15 (0-50); Potassium 4.1 mmol/L (3.4-5.1); Sodium 138 mmol/L (137-145); Total Protein 7.3 g/dL (6.3-8.2)
== END ==
PROVIDERS: PCP Internal Medicine; Referring Provider Internal Medicine; Visit Provider Internal Medicine
DX: M81.0 Age-related osteoporosis without current pathological fracture (principal)
CPT/HCPCS: 36415; 80053

== ENCOUNTER → 2022-03-28 13:54 | Outpatient (CLI) | payer MEDICARE, SELFPAY ==
[2021-12-22 14:38] VITALS: BMI 25.8
[2022-03-28 15:31] LABS: Alanine Aminotransferase 26 IU/L (<35); Albumin 4.1 g/dL (3.5-5.0); Albumin Globulin Ratio 1.3 (1.0-2.8); Alkaline Phosphatase 74 U/L (38-126); Aspartate Aminotransferase 26 IU/L (14-36); BUN Creatinine Ratio 19.3 (6-22); Bilirubin Total 0.9 mg/dL (0.2-1.3); Blood Urea Nitrogen 17 mg/dL (7-17); Calcium 9.3 mg/dL (8.4-10.2); Carbon Dioxide 23 mmol/L (22-32); Chloride 106 mmol/L (98-107); Estimated Glomerular Filt Rate > 60 mL/min (>60); Globulin 3.1 g/dL (1.7-4.1); Glucose 90 mg/dL (80-110); HEMOLYSIS < 15 (0-50); Potassium 3.9 mmol/L (3.4-5.1); Sodium 138 mmol/L (137-145); Total Protein 7.2 g/dL (6.3-8.2)
== END ==
PROVIDERS: PCP Internal Medicine; Referring Provider Internal Medicine; Visit Provider Internal Medicine
DX: M81.0 Age-related osteoporosis without current pathological fracture (principal); I10 Essential (primary) hypertension; E78.2 Mixed hyperlipidemia
CPT/HCPCS: 36415; 80053

== ENCOUNTER → 2022-05-25 14:14 | Outpatient (CLI) | payer MEDICARE, SELFPAY ==
[2021-12-22 14:38] VITALS: BMI 25.8
[2022-05-25 15:25] LABS: Aspartate Aminotransferase 24 IU/L (14-36); BUN Creatinine Ratio 18.4 (6-22); Blood Urea Nitrogen 18 mg/dL (7-17); Calcium 9.5 mg/dL (8.4-10.2); Carbon Dioxide 29 mmol/L (22-32); Chloride 104 mmol/L (98-107); Estimated Glomerular Filt Rate 58 mL/min (>60); Glucose 108 mg/dL (80-110); HEMOLYSIS < 15 (0-50); Potassium 4.2 mmol/L (3.4-5.1); Sodium 138 mmol/L (137-145)
== END ==
PROVIDERS: PCP Internal Medicine; Referring Provider Internal Medicine; Visit Provider Internal Medicine
DX: M81.0 Age-related osteoporosis without current pathological fracture (principal)
CPT/HCPCS: 36415; 80048; 84450

== ENCOUNTER → 2022-05-26 16:10 | Outpatient (CLI) | payer MEDICARE, SELFPAY ==
[2022-05-25 15:11] VITALS: BMI 25.8
--- NOTE | 2022-05-26 16:15 | DI.RAD.S_ITS ---
POCEDURE: XR HIP W PEL IF DONE RT 2V INDICATIONS: Right hip pain TECHNIQUE: 3 views of the hip were acquired. COMPARISON: None. FINDINGS: Total right arthroplasty. Expected position and and appearance of the hardware. No abnormal lucency surrounding the hardware. No evidence of [place] bone fracture. No suspicious bone lesion. Moderate lower lumbar spine degenerative changes poorly characterized. Mild to moderate left hip osteoarthritis. IMPRESSION: Status post total right hip arthroplasty with no acute complicating hardware feature. Lumbar spine and left hip degenerative changes. Dictated by: Alfredo Sabillon M.D. on 05/26/2022 at 19:07 Approved by: Alfredo Sabillon M.D. on 05/26/2022 at 19:08
== END ==
PROVIDERS: PCP Internal Medicine; Referring Provider Internal Medicine; Visit Provider Internal Medicine
DX: M47.816 Spondylosis without myelopathy or radiculopathy, lumbar region (principal); M25.551 Pain in right hip; M15.9 Polyosteoarthritis, unspecified; Z96.641 Presence of right artificial hip joint
CPT/HCPCS: 73502

== ENCOUNTER 2023-12-27 13:42 | Emergency (ER) | payer MEDICARE, SELFPAY ==
[2022-05-25 15:11] VITALS: BMI 25.8
--- NOTE | 2023-12-27 13:51 | ED_ITS ---
HPI - General Adult General Chief complaint: Fall Stated complaint: Fall, hit head, knee; no blood thinners Time Seen by Provider: 12/27/23 13:51 History of Present Illness HPI narrative: 83-year-old woman with a history of hypertension, multiple sclerosis fell, slipped, on some water in the garage landing on her right knee right hip is complaining of hitting her head but no head pain. She does have moderate midline cervical spine tenderness. She needed help up and was having difficulty standing because of hip pain and patellar pain. After pain medication given at home she is feeling significantly improved and comes in for further evaluation. She has no other new complaints or concerns at this time Related Data Home Medications Medication Instructions Recorded Confirmed ascorbic acid (vitamin C) 500 mg 500 mg PO DAILY 09/03/18 02/08/23 capsule,extended release (Vitamin C) cholecalciferol (vitamin D3) 25 1,000 unit PO DAILY 09/03/18 02/08/23 mcg (1,000 unit) tablet (Vitamin D3) coenzyme Q10 100 mg capsule 100 mg PO DAILY 09/03/18 02/08/23 (CoQ-10) ferrous sulfate 325 mg (65 mg 325 mg PO QTUTHSA 09/03/18 02/08/23 iron) tablet (Iron (ferrous sulfate)) prasterone (dhea) 25 mg capsule 10 mg PO DAILY 09/03/18 02/08/23 (DHEA) selenium 100 mcg tablet 100 mcg PO DAILY 09/03/18 02/08/23 thyroid (pork) 15 mg tablet 16.25 mg PO DAILY 09/03/18 02/08/23 ([place] Thyroid) prednisolone acetate 1 % eye 1 drp ophthalmic (eye) BID 01/20/22 02/08/23 drops,suspension progesterone micronized 200 mg 200 mg PO ONCE PM 02/08/23 02/08/23 capsule trazodone 50 mg tablet 50 mg PO ONCE PM 02/08/23 02/08/23 Previous Rx's Medication Instructions Recorded pantoprazole 40 mg tablet,delayed 40 mg PO DAILY #90 tabs 02/07/22 release amlodipine 5 mg tablet 5 mg PO DAILY #90 tabs 10/12/22 rosuvastatin 10 mg tablet 10 mg PO DAILY #90 tabs 04/10/23 Allergies Allergy/AdvReac Type Severity Reaction Status Date / Time scallops Allergy Severe Anaphylaxis Verified 12/27/23 14:00 codeine Allergy Unknown UNK BY PT Verified 02/08/23 13:49 Penicillins Allergy Unknown UNK BY PT Verified 02/08/23 13:49 [id number] Reductase Allergy Unknown UNK BY PT Verified 02/08/23 13:49 Inhibitor [[id number]-Fsv-Dsc Reductase Inhibitor] Sulfa (Sulfonamide Allergy Unknown UNK BY PT Verified 02/08/23 13:49 Antibiotics) UNKNOWN ANTIBIOTIC Allergy Unknown Uncoded 02/08/23 13:49 Review of Systems Review of Systems Narrative: Pertinent positive and negative findings as per HPI Patient History Medical History Iliotibial band syndrome, right leg Primary osteoarthritis involving multiple joints Right hip pain Age-related osteoporosis without current pathological fracture Do not resuscitate Corneal epithelial dystrophy of right eye Mixed hyperlipidemia Essential hypertension Gait instability Hiatal hernia without gangrene and obstruction Anemia due to chronic blood loss History of melanoma Mitral valve prolapse Restless leg syndrome Stenosis, cervical spine Osteopenia Measles Chicken pox Hearing loss Cataracts, bilateral Partial blindness Fibroids History of urinary incontinence Kidney stones Colon polyps Aortic stenosis Melanoma Left supraspinatus tendinitis GERD without esophagitis Hiatal hernia Hypothyroidism Mitral regurgitation History of optic neuritis Osteoporosis Iron (Fe) deficiency anemia Incontinence of urine Heart murmur Multiple sclerosis Surgical History Anesthesia Status post hip hemiarthroplasty Family History Mother Stroke Social History household members: spouse Smoking Status: Never smoker alcohol intake: current Smoking Status: Never smoker alcohol intake frequency: holidays/special occasions only Substance Use Type: does not use Exam Initial Vital Signs Initial Vital Signs: Vital Signs Pulse Rate 53 L 12/27/23 13:52 Blood Pressure 178/74 H 12/27/23 13:52 Pulse Oximetry 98 12/27/23 13:52 General: Healthy appearing, in no acute distress. Able to cooperate with exam and history HEENT: Moist mucous membranes, normal sclera with reactive pupils, Neck: Mild midline tenderness along the entire C-spine. No significant paraspinous tenderness Respiratory: Lungs are clear to auscultation, no wheezing no rales no rhonchi. Full and symmetrical air movement Cardiac: Regular rate and rhythm no murmurs no bruits Abdomen: Soft, nontender, good bowel tones, no flank pain Skin: Warm and dry, no rashes, abrasions or contusions Neurologic: She is at her neurologic baseline with no acute abnormalities Extremities: Tenderness with palpation of the right patella, with external rotation of the right hip Psych: Cooperative, appropriate insight and affect Course Orders Ordered: ED Orders 12/27/23 13:59 CT cervical spine wo con Stat CT head/brain wo con Stat XR hip w pel if done RT 2V Stat XR knee RT 3V Stat Vital Signs Vital signs: Vital Signs - 8 hr 12/27/23 13:52 12/27/23 13:52 12/27/23 13:56 Temperature 97.6 F Pulse Rate 53 L 48 L Respiratory Rate 16 Blood Pressure 178/74 H 178/74 H Pulse Oximetry 98 99 Oxygen Delivery Method Room Air 12/27/23 14:00 12/27/23 14:21 12/27/23 14:21 Temperature Pulse Rate 49 L Respiratory Rate Blood Pressure 176/76 H Pulse Oximetry 98 99 Oxygen Delivery Method 12/27/23 14:30 12/27/23 14:30 Temperature Pulse Rate 48 L Respiratory Rate Blood Pressure 159/60 H Pulse Oximetry 99 Oxygen Delivery Method Medical Decision Making [facility] Narrative Medical decision making narrative: CC: Fall with neck and hip pain Complicating co-morbidities: Multiple sclerosis, hypothyroidism, hyperlipidemia Data collected from: patient, daughter Medical records reviewed: Primary care notes reviewed Differential considered: Patellar fracture, hip fracture, intracranial hemorrhage, acute cervical spine injury, contusions Exam documented above, pertinent findings include: Patient complains of tenderness with palpation of the patella on the right and external rotation of the right hip. Midline cervical spine tenderness without significant muscle spasm. Remainder of exam is benign. She has not complaining of any upper extremity abnormalities Imaging studies independently reviewed: X-ray of the knee shows no fracture X-ray of the hip shows appropriate right hip prosthesis with no periprosthetic fractures CT scan of the head shows no intracranial hemorrhage CT scan of the cervical spine is unremarkable Discussion: 83-year-old woman with a fall at home complaining of knee and hip pain. No fractures appreciated. Pain is almost entirely resolved after a hydrocodone that she took prior to arrival. CT scan of the neck was done for midline cervical spine pain that was unremarkable. CT scan head was done as she is 83 and hit her head. No intracranial hemorrhage. Reassurance is given, she has hydrocodone available at home. We discussed anticipated course of recovery including the fact that she is going to likely be sore for the next 2 days before she truly begins to improve. Encourage use of stool softeners with the hydrocodone. She is safe for discharge Discharge Plan Departure Patient Disposition: Home Clinical Impression: Fall Qualifiers: Encounter type: initial encounter Qualified Code(s): W19.XXXA - Unspecified fall, initial encounter Contusion of knee Qualifiers: Encounter type: initial encounter Laterality: right Qualified Code(s): S80.01XA - Contusion of right knee, initial encounter Hip strain Qualifiers: Encounter type: initial encounter Laterality: right Qualified Code(s): S76.011A - Strain of muscle, fascia and tendon of right hip, initial encounter Instructions: DI for Contusion Activity Restrictions/Additional Instructions: Thank you for coming in today You did not break anything You likely are going to be more sore over the next 1-2 days as your body heals. I would not be surprised if you develop some bruising aroundt your hip and even around your knee. You can use 1 hydrocodone that you have available at home every 6 hours as needed. You can also use 1 ibuprofen with that. For medium pain 1 ibuprofen and 1 Tylenol as a combination may be quite helpful. If you find that you are getting worse or develop any new symptoms, please feel free to return to the emergency department for further evaluation. Prescriptions: No Action pantoprazole 40 mg tablet,delayed release (DR/EC) 40 mg PO DAILY Qty: 90 3RF amlodipine 5 mg tablet 5 mg PO DAILY Qty: 90 4RF rosuvastatin 10 mg tablet 10 mg PO DAILY Qty: 90 3RF prednisolone acetate 1 % drops,suspension 1 drp ophthalmic (eye) BID trazodone 50 mg tablet 50 mg PO ONCE PM progesterone micronized 200 mg capsule 200 mg PO ONCE PM thyroid (pork) [[place] Thyroid] 15 mg Tablet 16.25 mg PO DAILY prasterone (dhea) [DHEA] 25 mg Capsule 10 mg PO DAILY ferrous sulfate [Iron (ferrous sulfate)] 325 mg (65 mg iron) Tablet 325 mg PO QTUTHSA Patient Comments: hasn't taken for months ascorbic acid (vitamin C) [Vitamin C] 500 mg Capsule, Extended Release 500 mg PO DAILY selenium 100 mcg Tablet 100 mcg PO DAILY coenzyme Q10 [CoQ-10] 100 mg Capsule 100 mg PO DAILY cholecalciferol (vitamin D3) [Vitamin D3] 1,000 unit Tablet 1,000 unit PO DAILY Referrals: Brice Ba MD [Primary Care Provider] - Stand Alone Forms: Patient Portal/API
[2023-12-27 13:52] VITALS: BP 178/74; PULSE 53; O2SAT 98
[2023-12-27 13:56] VITALS: BP 178/74; PULSE 48; RESP 16; TEMP 36.4; O2SAT 99; BMI 26.6
--- NOTE | 2023-12-27 13:59 | DI.RAD.S_ITS ---
PROCEDURE: XR KNEE RT 3V INDICATIONS: fall, pain TECHNIQUE: 3 views of the knee were acquired. COMPARISON: None. FINDINGS: Bones: No fractures or dislocations. No suspicious bony lesions. Soft tissues: Small joint effusion. No suspicious soft tissue calcifications. IMPRESSION: No acute osseous abnormality. If pain persists with conservative management, consider repeat x-ray in 10-14 days or cross-sectional imaging. Dictated by: Bob Cage M.D. on 12/27/2023 at 14:22 Approved by: Bob Cage M.D. on 12/27/2023 at 14:23
--- NOTE | 2023-12-27 13:59 | DI.CT.S_ITS ---
PROCEDURE: CT HEAD/BRAIN WO CON INDICATIONS: fall, hit head, no thinners TECHNIQUE: Noncontrast 4.5 mm thick angled axial sections acquired from the foramen magnum to the vertex, with coronal and sagittal reformats. For radiation dose reduction, the following was used: automated exposure control, adjustment of mA and/or kV according to patient size. COMPARISON: None. FINDINGS: Image quality: Diagnostic. CSF spaces: Basal cisterns are patent. No extra-axial fluid collections. The ventricles are symmetric in size and shape. Brain: No intracranial bleeds or masses. There is cerebral volume loss for age, with resultant ventricular and sulcal prominence. There are periventricular and deep white matter chronic small vessel ischemic changes. There is intracranial internal carotid artery atherosclerosis. Skull and face: Calvarium and visualized facial bones appear intact, without suspicious lesions. Metallic density anterior to the right eye resulting in streak artifact. Sinuses: Visualized sinuses and mastoids are clear. IMPRESSION: No acute intracranial pathology. Dictated by: Bob Cage M.D. on 12/27/2023 at 14:26 Approved by: Bob Cage M.D. on 12/27/2023 at 14:28
--- NOTE | 2023-12-27 13:59 | DI.RAD.S_ITS ---
PROCEDURE: XR HIP W PEL IF DONE RT 2V INDICATIONS: fall, hip pain TECHNIQUE: AP pelvis with lateral view(s) of the right hip(s). COMPARISON: [facility], CR, XR HIP W PEL IF DONE RT 2V, 05/26/2022, 16:16. FINDINGS: Bones: No fractures or dislocations. Stable appearance of right hip arthroplasty. The hardware appears intact without surrounding fracture or lucency Pelvic ring appears intact. No suspicious bony lesions. Degenerative changes of the visualized lower lumbar spine and pubic symphysis. Soft tissues: The visualized bowel gas pattern is normal. No suspicious soft tissue calcifications. IMPRESSION: No acute fracture dislocation. Stable appearance of right hip arthroplasty without evidence of complication. Dictated by: Bob Cage M.D. on 12/27/2023 at 14:22 Approved by: Bob Cage M.D. on 12/27/2023 at 14:22
--- NOTE | 2023-12-27 13:59 | DI.CT.S_ITS ---
PROCEDURE: CT CERVICAL SPINE WO CON INDICATIONS: fell, neck pain TECHNIQUE: Noncontrast 3 mm thick sections acquired from the skull base to the T4 level. Sagittal and coronal reformats were then constructed. For radiation dose reduction, the following was used: automated exposure control, adjustment of mA and/or kV according to patient size. COMPARISON: None. FINDINGS: Image quality: Excellent. Bones: No fractures or dislocations. Multilevel degenerative changes of the cervical spine. Decreased osseous mineralization. Visualized superior ribs are intact. Soft tissues: Prevertebral soft tissues are normal in thickness. No paravertebral hematomas. No apical pneumothoraces. IMPRESSION: No displaced fracture or traumatic subluxation. Dictated by: Bob Cage M.D. on 12/27/2023 at 14:23 Approved by: Bob Cage M.D. on 12/27/2023 at 14:26
[2023-12-27 14:00] VITALS: PULSE 49; O2SAT 98
[2023-12-27 14:21] VITALS: BP 176/76; O2SAT 99
[2023-12-27 14:30] VITALS: BP 159/60; PULSE 48; O2SAT 99
== END 2023-12-27 15:33 | disposition home or self-care (01) ==
PROVIDERS: Emergency Provider Emergency Medicine; PCP Internal Medicine
DX: S76.011A Strain of muscle, fascia and tendon of right hip, initial encounter (principal); S80.01XA Contusion of right knee, initial encounter; S09.90XA Unspecified injury of head, initial encounter; M54.2 Cervicalgia; G35 Multiple sclerosis; W01.0XXA Fall on same level from slipping, tripping and stumbling without subsequent striking against object, initial encounter
CPT/HCPCS: 70450; 72125; 73502; 73562; 99284

== ENCOUNTER → 2024-03-20 11:15 | Outpatient (CLI) | payer MEDICARE, SELFPAY ==
[2022-05-25 15:11] VITALS: BMI 25.8
[2024-03-20 14:08] LABS: Hematocrit 47.4 % (36-46); Hemoglobin 16.1 g/dL (12.0-16.0); Mean Corpuscular HGB Conc 33.9 % (30-36); Mean Corpuscular Hemoglobin 31.4 PG (26-34); Mean Corpuscular Volume 92.5 fL (80-100); Platelet Count 162 X10^3/uL (150-400); Red Blood Cell Count 5.13 X10^6/uL (4.0-5.2); Red Cell Distribution Width 13.3 % (11.6-14.8); White Blood Cell Count 5.7 X10^3/uL (4.5-11.0)
[2024-03-20 14:28] LABS: Albumin 4.1 g/dL (3.5-5.0); Chloride 107 mmol/L (98-107); HEMOLYSIS < 15 (0-50)
[2024-03-20 14:52] LABS: Alanine Aminotransferase 29 IU/L (<35); Albumin Globulin Ratio 1.5 (1.0-2.8); Alkaline Phosphatase 75 U/L (38-126); Aspartate Aminotransferase 33 IU/L (14-36); BUN Creatinine Ratio 20.4 (6-22); Bilirubin Total 0.7 mg/dL (0.2-1.3); Blood Urea Nitrogen 21 mg/dL (7-17); Calcium 9.7 mg/dL (8.4-10.2); Carbon Dioxide 28 mmol/L (22-32); Cholesterol 213 mg/dL (140-199); Estimated Glomerular Filt Rate 55 mL/min (>60); Globulin 2.7 g/dL (1.7-4.1); Glucose 73 mg/dL (80-110); HDL Cholesterol 55 mg/dL (40-60); LDL Cholesterol Calculated 135 mg/dL (<100); Potassium 4.1 mmol/L (3.4-5.1); Sodium 140 mmol/L (137-145); Total Protein 6.8 g/dL (6.3-8.2); Triglycerides 116 mg/dL (35-150)
[2024-03-20 15:23] LABS: TSH w/ Reflex to FT4 1.09 uIU/mL (0.47-4.68)
== END ==
PROVIDERS: PCP Internal Medicine; Referring Provider Internal Medicine; Visit Provider Internal Medicine
DX: D50.0 Iron deficiency anemia secondary to blood loss (chronic) (principal); E03.9 Hypothyroidism, unspecified; I35.0 Nonrheumatic aortic (valve) stenosis; E78.2 Mixed hyperlipidemia; I10 Essential (primary) hypertension
CPT/HCPCS: 36415; 80053; 80061; 84443; 85027

== ENCOUNTER 2024-06-19 10:48 | Emergency (ER) | payer SELFPAY ==
[2022-05-25 15:11] VITALS: BMI 25.8
== END 2024-06-19 11:43 | disposition left against medical advice (07) ==
LOC: ED 11:37
PROVIDERS: Emergency Provider Emergency Medicine; PCP Internal Medicine
DX: R10.9 Unspecified abdominal pain (principal)

== ENCOUNTER 2024-06-28 02:46 | Inpatient (IN) | payer MEDICARE, SELFPAY ==
[2022-05-25 15:11] VITALS: BMI 25.8
[2024-06-28] VITALS (30 sets, daily range): BP systolic 85–233; BP diastolic 41–86; PULSE 64–111; RESP 12–21; TEMP 36.3–37.7; O2SAT 90–99; BMI 25.4
--- NOTE | 2024-06-28 03:06 | DI.CT.S_ITS ---
PROCEDURE: CT ABDOMEN PELVIS W CON INDICATIONS: LLQ and pelvic pain TECHNIQUE: After the administration of intravenous contrast, axial sections acquired from the lung bases to the pubic symphysis. Coronal and sagittal reformats were performed. For radiation dose reduction, the following was used: automated exposure control, adjustment of mA and/or kV according to patient size. COMPARISON: [facility], CT, CT ABDOMEN PELVIS W CON, 10/02/2021, 14:32. FINDINGS: Image quality: Diagnostic Lower chest: Basal scarring and atelectasis. Large hiatal hernia partially seen. Heart size is at the upper limit of normal. Liver: Left lobe liver cyst. Other small hypoattenuating lesions are similar, indeterminate however on single phase imaging. Consider follow-up if there is concern or history of malignancy. Gallbladder and biliary system: Cholelithiasis, nondilated Pancreas: No ductal dilation Spleen: Nonenlarged Adrenals: No discrete nodules Kidneys: Moderate to severe right hydronephrosis. There are multiple small stones in the right distal ureter, measuring up to 4 millimeters. Right delayed nephrogram other bilateral calculi are seen, including a possible left upper calyceal diverticulum with a 1.5 centimeter stone. No left hydronephrosis. Vessels and lymph nodes: Unremarkable Bowel and peritoneum: No small bowel obstruction. No pathologic ascites. No drainable abscess. Colonic diverticula. Nondilated appendix Body wall: Unremarkable Pelvis: Thick-walled urinary bladder, possibly artifact of under distention. Reproductive organs are unremarkable on limited CT Bones: Right hip arthroplasty. There is surrounding metallic artifact. No aggressive appearing osseous abnormality. IMPRESSION: Conglomerate of stones in the right distal ureter measuring up to 4 millimeters, causing moderate to severe upstream hydronephrosis and delayed nephrogram/obstructive uropathy. Other nonobstructing calculi are seen in both kidneys. Similar probable left calyceal diverticulum with a 1.5 centimeter stone. Partially seen large hiatal hernia. Multiple other stable and incidental findings above. No significant changes from the preliminary report. Dictated by: Justin Jimenez M.D. on 06/28/2024 at 8:09 Approved by: Justin Jimenez M.D. on 06/28/2024 at 8:15
--- NOTE | 2024-06-28 03:07 | ED_ITS ---
HPI - General Adult General Chief complaint: Urogenital-Female Stated complaint: kidney stones Time Seen by Provider: 06/28/24 02:57 Source: patient Mode of arrival: Wheelchair History of Present Illness HPI narrative: 84-year-old woman with a history of MS stable for a number of years but gait instability, history aortic stenosis, hypertension, hyperlipidemia, hypothyroidism, reflux distant history of kidney stones and recently diagnosed with a urinary tract infection about a week ago currently on antibiotics but does not remember what kind. We did not have notes from that visit nor urine sample from that visit available this evening. She presents today complaining of continued dysuria somewhat better than it was prior to starting antibiotics but continued low pelvic and left lower quadrant pain. She is concerned that this may be her kidney stones causing problems. She has not reporting fevers or chills. She has been able to eat and drink. Related Data Home Medications Medication Instructions Recorded Confirmed ascorbic acid (vitamin C) 500 mg 500 mg PO DAILY 09/03/18 03/20/24 capsule,extended release (Vitamin C) cholecalciferol (vitamin D3) 25 1,000 unit PO DAILY 09/03/18 03/20/24 mcg (1,000 unit) tablet (Vitamin D3) coenzyme Q10 100 mg capsule 100 mg PO DAILY 09/03/18 03/20/24 (CoQ-10) ferrous sulfate 325 mg (65 mg 325 mg PO QTUTHSA 09/03/18 03/20/24 iron) tablet (Iron (ferrous sulfate)) prasterone (dhea) 25 mg capsule 10 mg PO DAILY 09/03/18 03/20/24 (DHEA) selenium 100 mcg tablet 100 mcg PO DAILY 09/03/18 03/20/24 thyroid (pork) 15 mg tablet 16.25 mg PO DAILY 09/03/18 03/20/24 ([place] Thyroid) prednisolone acetate 1 % eye 1 drp ophthalmic (eye) BID 01/20/22 03/20/24 drops,suspension progesterone micronized 200 mg 200 mg PO ONCE PM 02/08/23 03/20/24 capsule estradiol 0.01% (0.1 mg/gram) vaginal 03/20/24 03/20/24 vaginal cream Previous Rx's Medication Instructions Recorded amlodipine 5 mg tablet 5 mg PO DAILY #90 tabs 03/20/24 pantoprazole 40 mg tablet,delayed 40 mg PO DAILY #90 tabs 03/20/24 release rosuvastatin 10 mg tablet 10 mg PO DAILY #90 tabs 03/20/24 Allergies Allergy/AdvReac Type Severity Reaction Status Date / Time scallops Allergy Severe Anaphylaxis Verified 03/20/24 10:42 codeine Allergy Unknown UNK BY PT Verified 03/20/24 10:42 Penicillins Allergy Unknown UNK BY PT Verified 03/20/24 10:42 Mftnasi-IAW-BkY Reductase Allergy Unknown UNK BY PT Verified 03/20/24 10:42 Inhibitor [Gbeowsy-Mww-Ron Reductase Inhibitor] Sulfa (Sulfonamide Allergy Unknown UNK BY PT Verified 03/20/24 10:42 Antibiotics) UNKNOWN ANTIBIOTIC Allergy Unknown Uncoded 03/20/24 10:42 Review of Systems Review of Systems Narrative: Pertinent positive and negative findings as per HPI Patient History Medical History Iliotibial band syndrome, right leg Primary osteoarthritis involving multiple joints Right hip pain Age-related osteoporosis without current pathological fracture Do not resuscitate Corneal epithelial dystrophy of right eye Mixed hyperlipidemia Essential hypertension Gait instability Hiatal hernia without gangrene and obstruction Anemia due to chronic blood loss History of melanoma Mitral valve prolapse Restless leg syndrome Stenosis, cervical spine Osteopenia Measles Chicken pox Hearing loss Cataracts, bilateral Partial blindness Fibroids History of urinary incontinence Kidney stones Colon polyps Aortic stenosis Melanoma Left supraspinatus tendinitis GERD without esophagitis Hiatal hernia Hypothyroidism Mitral regurgitation History of optic neuritis Osteoporosis Iron (Fe) deficiency anemia Incontinence of urine Heart murmur Multiple sclerosis Surgical History Anesthesia Status post hip hemiarthroplasty Family History Mother Stroke Social History details: (Abbe - 05/10/2023), grown children, retired household members: spouse Smoking Status: Never smoker alcohol intake: current Smoking Status: Never smoker alcohol intake frequency: holidays/special occasions only Exam Initial Vital Signs Initial Vital Signs: Vital Signs Temperature 97.3 F L 06/28/24 02:55 Pulse Rate 67 06/28/24 02:55 Respiratory Rate 18 06/28/24 02:55 Blood Pressure 162/75 H 06/28/24 02:55 Pulse Oximetry 99 06/28/24 02:55 Oxygen Delivery Method Room Air 06/28/24 02:55 General: Older appearing but in no acute distress. Well-nourished well- developed HEENT: Moist mucous membranes, normal sclera with reactive pupils, Respiratory: Lungs are clear to auscultation, no wheezing no rales no rhonchi. Full and symmetrical air movement Cardiac: Regular rate and rhythm, 4/6 systolic murmur appreciated Abdomen: Soft, significantly tender in the left lower quadrant some tenderness in the suprapubic area, no upper abdominal tenderness, no flank pain no rebound or guarding Skin: Warm and dry, no rashes Neurologic: Grossly neurologically intact with no obvious asymmetries or abnormalities Extremities: No trauma, well perfused Psych: Cooperative, appropriate insight and affect Course Orders Ordered: ED Orders 06/28/24 03:06 CT abdomen pelvis w con Stat 06/28/24 03:20 Complete Blood Count AUTO DIFF Stat Comprehensive Metabolic Panel Stat 06/28/24 04:15 Urinalysis and Microscopic Stat Urine Culture Stat 06/28/24 05:43 Lactate (Lactic Acid) Stat 06/28/24 06:00 Blood Culture Stat Hydromorphone HCl (Hydromorphone 0.5 Mg Inj) 0.5 mg IV Q15MIN PRN PRN Reason: Pain, Last Admin: 06/28/24 05:38 Dose: 0.5 mg Documented By: Admin: 06/28/24 03:29 Dose: 0.5 mg Documented By: BALDEV Sodium Chloride (Normal Saline 0.9%) 1,000 mls @ 150 mls/hr IV CONT ISABELLA Discontinued Medications Ceftriaxone Sodium 2,000 mg/ (Sodium Chloride) 100 mls @ 200 mls/hr IV NOW ONE Stop: 06/28/24 05:43 Ondansetron HCl (Ondansetron 4 Mg/2 Ml Inj) 4 mg IV NOW ONE Stop: 06/28/24 03:09 Last Admin: 06/28/24 03:24 Dose: 4 mg Documented By: BALDEV Vital Signs Vital signs: Vital Signs - 8 hr 06/28/24 02:55 Temperature 97.3 F L Pulse Rate 67 Respiratory Rate 18 Blood Pressure 162/75 H Pulse Oximetry 99 Oxygen Delivery Method Room Air Medical Decision Making Lab Data 06/28/24 03:20 06/28/24 03:20 Labs: Lab Results 06/28/24 06/28/24 Range/Units 03:20 04:15 WBC 9.0 (4.5-11.0) X10^3/uL RBC 4.23 (4.0-5.2) X10^6/uL Hgb 13.2 (12.0-16.0) g/dL Hct 38.7 (36-46) % MCV 91.5 (80-100) fL MCH 31.2 (26-34) PG MCHC 34.1 (30-36) % RDW 13.4 (11.6-14.8) % Plt Count 239 (150-400) X10^3/uL Neut % (Auto) 82.5 H (50-75) % Lymph % (Auto) 9.2 L (25-40) % [place] % (Auto) 6.8 (3-14) % Eos % (Auto) 0.8 L (2-4) % Baso % (Auto) 0.7 (0-2) % Neut # (Auto) 7500 H (3857-3620) /uL Lymph # (Auto) 800 L (2431-9503) /uL [place] # (Auto) 600 (0-900) /uL Eos # (Auto) 100 (0-450) /uL Baso # (Auto) 100 (0-100) /uL Sodium 135 L (137-145) mmol/L Potassium 4.0 (3.4-5.1) mmol/L Chloride 102 (98-107) mmol/L Carbon Dioxide 23 (22-32) mmol/L BUN 25 H (7-17) mg/dL Creatinine 1.07 H (0.52-1.04) mg/dL Estimated GFR 52 L (>60) mL/min BUN/Creatinine Ratio 23.4 H (6-22) Glucose 112 H (80-110) mg/dL Calcium 9.4 (8.4-10.2) mg/dL Total Bilirubin 0.6 (0.2-1.3) mg/dL AST 30 (14-36) IU/L ALT 30 (<35) IU/L Alkaline Phosphatase 87 (38-126) U/L Total Protein 7.2 (6.3-8.2) g/dL Albumin 3.9 (3.5-5.0) g/dL Globulin 3.3 (1.7-4.1) g/dL Albumin/Globulin Ratio 1.2 (1.0-2.8) Urine Color Yellow Urine Appearance Cloudy Urine pH 7.0 (4.5-8.0) Ur Specific [place] 1.015 (1.000-1.035) Urine Protein 2+ H (Negative) Urine Glucose (UA) Negative (Negative) g/dL Urine Ketones 1+ H (NEGATIVE) Urine Occult Blood 3+ H (Negative) Urine Nitrate Positive H (Negative) Urine Bilirubin Negative (NEGATIVE) Urine Urobilinogen 1.0 (0.2) E.U./dL Ur Leukocyte Esterase 3+ H (NEGATIVE) Urine RBC 30-100/hpf H (0-5/HPF) Urine WBC 30-100/hpf H (0-5/HPF) Ur Squamous Epith Cells 0-1 /hpf (0-5/HPF) Urine Bacteria Many (>30) H (None) Ur Culture Indicated? Specimen cultured Vol Urine Centrifuged 10ml (spun) Urine Dip Bedside Urine Glucose Negative Bedside Urine Bilirubin - Negative Bedside Urine Ketone +/- 5 Urine Specific [place] 1.010 Bedside Urine Occult Blood +++ Bedside Urine pH 8.0 Bedside Urine Protein + 30 Bedside Urine Urobilinogen - Negative Bedside Urine Nitrite - Negative Bedside Urine Leukocytes +++ 500 Esterase Point of care testing: Urine Dip Bedside Urine Glucose Negative Bedside Urine Bilirubin - Negative Bedside Urine Ketone +/- 5 Urine Specific [place] 1.010 Bedside Urine Occult Blood +++ Bedside Urine pH 8.0 Bedside Urine Protein + 30 Bedside Urine Urobilinogen - Negative Bedside Urine Nitrite - Negative Bedside Urine Leukocytes +++ 500 Esterase MDM Narrative Medical decision making narrative: CC:Left lower quadrant pain Complicating co-morbidities: recently treated for urinary tract infection, on unknown antibiotics, continued dysuria, patient's a year ago her brother has moved up to help to care of her. Data collected from: patient, brother Medical records reviewed: primary care notes reviewed Differential considered: diverticulitis, partially treated urinary tract infection, recurrent urinary tract infection with nephrolithiasis complication, constipation, viral syndrome Exam documented above, pertinent findings include: patient does not appear acutely ill, states she is tender but has no difficulty getting up and out of bed and no pain behaviors while she is discussing her history. Tenderness to palpation in the left lower quadrant. Loud systolic murmur appreciated Lab Test results independently reviewed as above. Pertinent findings: CBC does not show significant leukocytosis chemistries do not show significant change in baseline renal function. Electrolytes are unremarkable urine has blood nitrites leukocyte esterase red cells white cells many bacteria specimen has been cultured Imaging studies independently reviewed: CT scan does show bilateral renal cysts, multiple intrarenal stones bilaterally. On the right side she has moderately severe hydronephrosis, tortuous hydroureter and mild to moderate perinephric stranding suggesting obstructive uropathy secondary to a 3-4 mm calculi in the distal ureter Consultations:Dr Serrano, urology Treatments: Dilaudid, Zofran, maintenance IV fluid, cefepime Re-evaluations: Discussion: 84-year-old woman currently being treated for a urinary tract infection with increasing pelvic pain concerned that she has recurrent kidney stone. Has a long history of kidney stones. She would fact does have a 3-4 mm stone that is obstructing the right ureterovesical junction causing hydronephrosis and perinephric stranding. In the setting of a known and still present urinary tract infection despite 5 days of antibiotics I believe she does need stenting. Care is reviewed with Urology will place a ureteral stent this morning. Once clinics are open we will see if we can figure out culture and sensitivity results that were obtained by her primary care physician earlier this week. She is not septic. She does have MS and is still having significant vomiting and pain control issues. Given her advanced age multiple comorbidities potential for an obstructive pyelonephritis with stenting this morning a.m. going to recommend observation admission to make sure that she does not progress to sepsis or develop worsening complications with her current bladder infection and multiple kidney stones. We will discuss with the hospitalist service Discharge Plan Departure Patient Disposition: Admitted as Observation Clinical Impression: Multiple sclerosis, Hydronephrosis with urinary obstruction due to ureteral calculus, Intractable vomiting Urinary tract infection Qualifiers: Urinary tract infection type: acute pyelonephritis Qualified Code(s): N10 - Acute pyelonephritis
[2024-06-28] MEDS: ONDANSETRON 4 MG/2 ML INJ IV ×2 (03:24→10:39)
[2024-06-28] MEDS: HYDROMORPHONE 0.5 MG INJ IV ×2 (03:29→05:38)
[2024-06-28 03:43] LABS: Add Manual Diff / Slide Review NO; Basophils Absolute Auto 100 /uL (0-100); Basophils Percent Auto 0.7 % (0-2); Eosinophils Absolute Auto 100 /uL (0-450); Eosinophils Percent Auto 0.8 % (2-4); Hematocrit 38.7 % (36-46); Hemoglobin 13.2 g/dL (12.0-16.0); Lymphocytes Absolute Auto 800 /uL (1100-4500); Lymphocytes Percent Auto 9.2 % (25-40); Mean Corpuscular HGB Conc 34.1 % (30-36); Mean Corpuscular Hemoglobin 31.2 PG (26-34); Mean Corpuscular Volume 91.5 fL (80-100); Monocytes Absolute Auto 600 /uL (0-900); Monocytes Percent Auto 6.8 % (3-14); Neutrophils Absolute Auto 7500 /uL (1500-7000); Neutrophils Percent Auto 82.5 % (50-75); Platelet Count 239 X10^3/uL (150-400); Red Blood Cell Count 4.23 X10^6/uL (4.0-5.2); Red Cell Distribution Width 13.4 % (11.6-14.8)
[2024-06-28 03:51] LABS: Alanine Aminotransferase 30 IU/L (<35); Albumin 3.9 g/dL (3.5-5.0); Albumin Globulin Ratio 1.2 (1.0-2.8); Alkaline Phosphatase 87 U/L (38-126); Aspartate Aminotransferase 30 IU/L (14-36); BUN Creatinine Ratio 23.4 (6-22); Bilirubin Total 0.6 mg/dL (0.2-1.3); Blood Urea Nitrogen 25 mg/dL (7-17); Calcium 9.4 mg/dL (8.4-10.2); Carbon Dioxide 23 mmol/L (22-32); Chloride 102 mmol/L (98-107); Estimated Glomerular Filt Rate 52 mL/min (>60); Globulin 3.3 g/dL (1.7-4.1); Glucose 112 mg/dL (80-110); HEMOLYSIS < 15 (0-50); Sodium 135 mmol/L (137-145); Total Protein 7.2 g/dL (6.3-8.2)
[2024-06-28 04:21] LABS: Appearance Urine UA CLOUDY; Bilirubin Urine UA NEGATIVE (NEGATIVE); Color Urine UA YELLOW; Glucose Urine UA NEGATIVE (Negative); Ketones Urine UA 1+ (NEGATIVE); Leukocyte Esterase Urine UA 3+ (NEGATIVE); Nitrite Urine UA POSITIVE (Negative); Occult Blood Urine UA 3+ (Negative); Protein Urine UA 2+ (Negative); Specific Gravity Urine UA 1.015 (1.000-1.035)
[2024-06-28 04:41] LABS: Bacteria Urine Many (>30); RBC Urine 30-100/HPF (0-5/HPF); Squamous Epithelial Cell Urine 0-1 /HPF (0-5/HPF); Urine Volume 10mL (spun); WBC Urine 30-100/HPF (0-5/HPF)
[2024-06-28 04:42] LABS: Culture Indicated Urine Specimen Cultured
[2024-06-28] MEDS: SODIUM CHLORIDE 0.9% 1,000 ML 150 ML IV (06:06)
[2024-06-28] MEDS: CEFEPIME 2 GM in SODIUM CHLORIDE 0.9% 100 ML IV (06:27)
--- NOTE | 2024-06-28 06:44 | PM.HP.1 ---
History of Present Illness History of Present Illness Chief complaint: kidney stones Narrative: 84-year-old female with past medical history of multiple sclerosis, aortic stenosis, hypertension, hyperlipidemia, hypothyroidism, GERD and kidney stones presents with dysuria and flank pain. Per the patient's report, the patient recently was diagnosed with a urinary tract infection a week ago. The patient was started on antibiotic but she did not remember what exactly it was. Despite being on antibiotic the patient continues to have dysuria and left flank pain. The patient was concerned and presented to our ER today. Otherwise the patient denies any fever, chills, nausea, vomiting, diarrhea, chest pain or shortness of breath. In our emergency room, the patient remains hemodynamically stable without sign of sepsis. US UA suggests UTI. CT scan of the abdomen and pelvic shows multiple intrarenal stones bilaterally. On the right side however there is moderately severe hydronephrosis, tortuous hydroureter and mild to moderate stranding suggests obstructive uropathy secondary to a 3 to 4 mm in the distal ureter. Dr. Serrano from urology was consulted salted and recommended to admit the patient here with IV antibiotic and IV fluid. Urology will place the ureteral stent this morning. Again the patient remains hemodynamically stable. IV cefepime as well as IV fluid and IV medication given. [facility] Medical History Iliotibial band syndrome, right leg Primary osteoarthritis involving multiple joints Right hip pain Age-related osteoporosis without current pathological fracture Do not resuscitate Corneal epithelial dystrophy of right eye Mixed hyperlipidemia Essential hypertension Gait instability Hiatal hernia without gangrene and obstruction Anemia due to chronic blood loss History of melanoma Mitral valve prolapse Restless leg syndrome Stenosis, cervical spine Osteopenia Measles Chicken pox Hearing loss Cataracts, bilateral Partial blindness Fibroids History of urinary incontinence Kidney stones Colon polyps Aortic stenosis Melanoma Left supraspinatus tendinitis GERD without esophagitis Hiatal hernia Hypothyroidism Mitral regurgitation History of optic neuritis Osteoporosis Iron (Fe) deficiency anemia Incontinence of urine Heart murmur Multiple sclerosis Surgical History Anesthesia Status post hip hemiarthroplasty Family History Mother Stroke Social History details: (Abbe - 05/10/2023), grown children, retired household members: spouse Smoking Status: Never smoker alcohol intake: current Meds Home Medications and Allergies Home Medications Medication Instructions Recorded Confirmed Type ascorbic acid (vitamin C) 500 mg 500 mg PO DAILY 09/03/18 03/20/24 History capsule,extended release (Vitamin C) cholecalciferol (vitamin D3) 25 1,000 unit PO DAILY 09/03/18 03/20/24 History mcg (1,000 unit) tablet (Vitamin D3) coenzyme Q10 100 mg capsule 100 mg PO DAILY 09/03/18 03/20/24 History (CoQ-10) ferrous sulfate 325 mg (65 mg 325 mg PO QTUTHSA 09/03/18 03/20/24 History iron) tablet (Iron (ferrous sulfate)) prasterone (dhea) 25 mg capsule 10 mg PO DAILY 09/03/18 03/20/24 History (DHEA) selenium 100 mcg tablet 100 mcg PO DAILY 09/03/18 03/20/24 History thyroid (pork) 15 mg tablet 16.25 mg PO DAILY 09/03/18 03/20/24 History ([place] Thyroid) prednisolone acetate 1 % eye 1 drp ophthalmic (eye) BID 01/20/22 03/20/24 History drops,suspension progesterone micronized 200 mg 200 mg PO ONCE PM 02/08/23 03/20/24 History capsule amlodipine 5 mg tablet 5 mg PO DAILY #90 tabs 03/20/24 03/20/24 Rx estradiol 0.01% (0.1 mg/gram) vaginal 03/20/24 03/20/24 History vaginal cream pantoprazole 40 mg tablet,delayed 40 mg PO DAILY #90 tabs 03/20/24 03/20/24 Rx release rosuvastatin 10 mg tablet 10 mg PO DAILY #90 tabs 03/20/24 03/20/24 Rx Allergies Allergy/AdvReac Type Severity Reaction Status Date / Time scallops Allergy Severe Anaphylaxis Verified 03/20/24 10:42 codeine Allergy Unknown UNK BY PT Verified 03/20/24 10:42 Penicillins Allergy Unknown UNK BY PT Verified 03/20/24 10:42 Lhvired-SMX-HzI Reductase Allergy Unknown UNK BY PT Verified 03/20/24 10:42 Inhibitor [Groxuby-Aoi-Bbf Reductase Inhibitor] Sulfa (Sulfonamide Allergy Unknown UNK BY PT Verified 03/20/24 10:42 Antibiotics) UNKNOWN ANTIBIOTIC Allergy Unknown Uncoded 03/20/24 10:42 Review of Systems Review of Systems ROS: Yes All systems reviewed with the patient and are negative except as otherwise documented Exam Vital Signs (past 8 hours): - 06/28/24 02:55 06/28/24 02:59 06/28/24 03:00 Temperature 97.3 F L Pulse Rate 67 70 Respiratory Rate 18 Blood Pressure 162/75 H 158/74 H Pulse Oximetry 99 96 Oxygen Delivery Method Room Air 06/28/24 03:00 06/28/24 03:55 06/28/24 03:56 Temperature Pulse Rate 69 64 Respiratory Rate Blood Pressure 150/72 H Pulse Oximetry 97 94 Oxygen Delivery Method 06/28/24 03:56 06/28/24 04:16 06/28/24 04:30 Temperature Pulse Rate 66 73 71 Respiratory Rate 16 Blood Pressure Pulse Oximetry 95 94 91 Oxygen Delivery Method 06/28/24 05:00 06/28/24 05:30 06/28/24 06:00 Temperature Pulse Rate 71 72 70 Respiratory Rate Blood Pressure Pulse Oximetry 96 98 97 Oxygen Delivery Method 06/28/24 06:30 Temperature Pulse Rate 77 Respiratory Rate Blood Pressure Pulse Oximetry 94 Oxygen Delivery Method Oxygen Delivery Method Room Air Narrative Exam Narrative: Physical Exam: GENERAL: The patient is not in any acute distressed. Awake and alert. HEENT: Nonicteric sclerae, PERRLA, EOMI. Oropharynx clear. Moist mucous membranes. Conjunctivae appear well perfused. HEART: Regular rate and rhythm without murmurs. No lower extremities edema. LUNGS: Clear to auscultation bilaterally. No wheezing, crackles or rhonchi ABDOMEN: Soft, positive bowel sounds, nontender. SKIN: No rash, no excessive bruising, petechiae, or purpura. NEUROLOGIC: AxO x 3. Cranial nerves II-XII intact without motor/sensory deficit. Objective Labs 06/28/24 03:20 06/28/24 03:20 Labs: Laboratory Results - last 24 hr 06/28/24 06/28/24 03:20 04:15 WBC 9.0 RBC 4.23 Hgb 13.2 Hct 38.7 MCV 91.5 MCH 31.2 MCHC 34.1 RDW 13.4 Plt Count 239 Neut % (Auto) 82.5 H Lymph % (Auto) 9.2 L [place] % (Auto) 6.8 Eos % (Auto) 0.8 L Baso % (Auto) 0.7 Neut # (Auto) 7500 H Lymph # (Auto) 800 L [place] # (Auto) 600 Eos # (Auto) 100 Baso # (Auto) 100 Sodium 135 L Potassium 4.0 Chloride 102 Carbon Dioxide 23 BUN 25 H Creatinine 1.07 H Estimated GFR 52 L BUN/Creatinine Ratio 23.4 H Glucose 112 H Calcium 9.4 Total Bilirubin 0.6 AST 30 ALT 30 Alkaline Phosphatase 87 Total Protein 7.2 Albumin 3.9 Globulin 3.3 Albumin/Globulin Ratio 1.2 Urine Color Yellow Urine Appearance Cloudy Urine pH 7.0 Ur Specific [place] 1.015 Urine Protein 2+ H Urine Glucose (UA) Negative Urine Ketones 1+ H Urine Occult Blood 3+ H Urine Nitrate Positive H Urine Bilirubin Negative Urine Urobilinogen 1.0 Ur Leukocyte Esterase 3+ H Urine RBC 30-100/hpf H Urine WBC 30-100/hpf H Ur Squamous Epith Cells 0-1 /hpf Urine Bacteria Many (>30) H Ur Culture Indicated? Specimen cultured Vol Urine Centrifuged 10ml (spun) Assessment & Plan Assessment & Plan narrative: UTI with obstructing renal stone. Made the patient to medical inpatient. Again the patient remained hemodynamically stable without any signs of sepsis. Dr. Serrano from neurology recommended to continue IV antibiotic and IV fluid. Dr. Serrano will place a ureteral stent this morning. Continue to monitor hemodynamics and follow-up cultures. Continue IV cefepime. MS. No sign of exacerbation. Resume home medication. Hypertension. Monitor blood pressure and treat accordingly. Hypothyroidism. Resume home Synthroid. Hyperlipidemia. Resume home statin. GERD resume home pantoprazole. DVT prophylaxis SCDs for now due to planned procedure CODE STATUS full code. Disposition likely home in 2 days. Time-Based Coding :: [TOTAL MINUTES] spent with patient and on the chart (including review of chart, obtaining history, exam, reviewing outside data, placing orders, documenting exam and treatment plan, and counseling patient) on [DATE].
[2024-06-28 07:01] LABS: Lactate (Lactic Acid) 1.1 mmol/L (0.7-2.1)
--- NOTE | 2024-06-28 07:55 | PC.NURSE ---
Pt taken or OR before blood pressure could be obtained.
--- NOTE | 2024-06-28 09:03 | P.CONS_ITS ---
History of Present Illness Consult details Date Patient Seen: 06/28/24 Time Patient Seen: 07:15 Chief complaint: kidney stones Reason for consult: Right distal ureteral stones, urinary tract infection Narrative: 84 y/o F w/ extensive h/o nephrolithiasis presented to ER for evaluation of severe right flank pain w/ nausea and vomiting. Of note, she has required Urological procedures in the past for management of her kidney and ureteral stones. She began to experience dysuria, right flank pain that would radiate into the right side of her abdomen and nausea with vomiting. Her evaluation was notable for AFVSS, WBC of 9, sCr of 1.07, a UA consistent w/ a urinary tract infection and a CT Abd/Pel that demonstrated a few distal right ureteral stones resulting in upstream moderate to severe hydroureteronephrosis and a delayed right nephrogram with a few additional right non-obstructing nephroliths (large right lower pole calculus). Urology was consulted regarding further management. Meds Home Medications and Allergies Home Medications Medication Instructions Recorded Confirmed Type ascorbic acid (vitamin C) 500 mg 500 mg PO DAILY 09/03/18 06/28/24 History capsule,extended release (Vitamin C) cholecalciferol (vitamin D3) 25 1,000 unit PO DAILY 09/03/18 06/28/24 History mcg (1,000 unit) tablet (Vitamin D3) coenzyme Q10 100 mg capsule 100 mg PO DAILY 09/03/18 06/28/24 History (CoQ-10) ferrous sulfate 325 mg (65 mg 325 mg PO QTUTHSA 09/03/18 06/28/24 History iron) tablet (Iron (ferrous sulfate)) prasterone (dhea) 25 mg capsule 10 mg PO DAILY 09/03/18 06/28/24 History (DHEA) selenium 100 mcg tablet 100 mcg PO DAILY 09/03/18 06/28/24 History thyroid (pork) 15 mg tablet 16.25 mg PO DAILY 09/03/18 06/28/24 History ([place] Thyroid) prednisolone acetate 1 % eye 1 drp ophthalmic (eye) BID 01/20/22 06/28/24 History drops,suspension progesterone micronized 200 mg 200 mg PO ONCE PM 02/08/23 06/28/24 History capsule amlodipine 5 mg tablet 5 mg PO DAILY #90 tabs 03/20/24 06/28/24 Rx estradiol 0.01% (0.1 mg/gram) 1 applic vaginal DAILY 03/20/24 06/28/24 History vaginal cream pantoprazole 40 mg tablet,delayed 40 mg PO DAILY #90 tabs 03/20/24 06/28/24 Rx release rosuvastatin 10 mg tablet 10 mg PO DAILY #90 tabs 03/20/24 06/28/24 Rx Allergies Allergy/AdvReac Type Severity Reaction Status Date / Time scallops Allergy Severe Anaphylaxis Verified 06/28/24 08:15 codeine Allergy Unknown UNK BY PT Verified 06/28/24 08:15 Penicillins Allergy Unknown UNK BY PT Verified 06/28/24 08:15 Raerdki-MET-ArQ Reductase Allergy Unknown UNK BY PT Verified 06/28/24 08:15 Inhibitor [Cdgnapp-Wgz-Xhv Reductase Inhibitor] Sulfa (Sulfonamide Allergy Unknown UNK BY PT Verified 06/28/24 08:15 Antibiotics) UNKNOWN ANTIBIOTIC Allergy Unknown Uncoded 03/20/24 10:42 Review of Systems Review of Systems Narrative: CONSTITUTIONAL: Denies weight loss, fevers, chills. HEENT: Denies change in vision, hearing. RESP: Denies SOB, cough. CV: Denies palpations, CP. GI: Denies diarrhea. : Denies hematuria, inability to void. MSK: Denies myalgia, joint pain. SKIN: Denies rash, pruritus. NEURO: Denies headache, syncope. PSYCH: Denies recent change in mood, anxiety, depression. Exam Vital Signs (past 8 hours): - 06/28/24 02:55 06/28/24 02:59 06/28/24 03:00 Temperature 97.3 F L Pulse Rate 67 70 Respiratory Rate 18 Blood Pressure 162/75 H 158/74 H Pulse Oximetry 99 96 Oxygen Delivery Method Room Air 06/28/24 03:00 06/28/24 03:55 06/28/24 03:56 Temperature Pulse Rate 69 64 Respiratory Rate Blood Pressure 150/72 H Pulse Oximetry 97 94 Oxygen Delivery Method 06/28/24 03:56 06/28/24 04:16 06/28/24 04:30 Temperature Pulse Rate 66 73 71 Respiratory Rate 16 Blood Pressure Pulse Oximetry 95 94 91 Oxygen Delivery Method 06/28/24 05:00 06/28/24 05:30 06/28/24 06:00 Temperature Pulse Rate 71 72 70 Respiratory Rate Blood Pressure Pulse Oximetry 96 98 97 Oxygen Delivery Method 06/28/24 06:30 06/28/24 07:00 06/28/24 08:32 Temperature 99.2 F Pulse Rate 77 76 78 Respiratory Rate 16 Blood Pressure 126/69 Pulse Oximetry 94 93 97 Oxygen Delivery Method Room Air Oxygen Delivery Method Room Air Narrative Exam Narrative: GEN: Alert and oriented X3. No acute distress. Well-nourished. EYES: PERRLA, EOMI. HENT: Moist mucus membranes, no scleral icterus, normal neck ROM. RESP: Unlabored breathing, equal rise and fall of chest bilaterally, no cyanosis appreciated. CV: No peripheral edema, unremarkable heart rate. ABD: Soft, non-tender, non-distended, no palpable masses. : R CVAT. EXT: No edema, clubbing or cyanosis. SKIN: No rashes or lesions. NEURO: No focal neurologic deficits, CN II-XII grossly intact. PSYCH: Cooperative, appropriate mood and affect. Objective Labs 06/28/24 03:20 06/28/24 03:20 Labs: Laboratory Results - last 24 hr 06/28/24 06/28/24 06/28/24 03:20 04:15 06:25 WBC 9.0 RBC 4.23 Hgb 13.2 Hct 38.7 MCV 91.5 MCH 31.2 MCHC 34.1 RDW 13.4 Plt Count 239 Neut % (Auto) 82.5 H Lymph % (Auto) 9.2 L [place] % (Auto) 6.8 Eos % (Auto) 0.8 L Baso % (Auto) 0.7 Neut # (Auto) 7500 H Lymph # (Auto) 800 L [place] # (Auto) 600 Eos # (Auto) 100 Baso # (Auto) 100 Sodium 135 L Potassium 4.0 Chloride 102 Carbon Dioxide 23 BUN 25 H Creatinine 1.07 H Estimated GFR 52 L BUN/Creatinine Ratio 23.4 H Glucose 112 H Lactate 1.1 Calcium 9.4 Total Bilirubin 0.6 AST 30 ALT 30 Alkaline Phosphatase 87 Total Protein 7.2 Albumin 3.9 Globulin 3.3 Albumin/Globulin Ratio 1.2 Urine Color Yellow Urine Appearance Cloudy Urine pH 7.0 Ur Specific [place] 1.015 Urine Protein 2+ H Urine Glucose (UA) Negative Urine Ketones 1+ H Urine Occult Blood 3+ H Urine Nitrate Positive H Urine Bilirubin Negative Urine Urobilinogen 1.0 Ur Leukocyte Esterase 3+ H Urine RBC 30-100/hpf H Urine WBC 30-100/hpf H Ur Squamous Epith Cells 0-1 /hpf Urine Bacteria Many (>30) H Ur Culture Indicated? Specimen cultured Vol Urine Centrifuged 10ml (spun) [facility] Medical History Iliotibial band syndrome, right leg Primary osteoarthritis involving multiple joints Right hip pain Age-related osteoporosis without current pathological fracture Do not resuscitate Corneal epithelial dystrophy of right eye Mixed hyperlipidemia Essential hypertension Gait instability Hiatal hernia without gangrene and obstruction Anemia due to chronic blood loss History of melanoma Mitral valve prolapse Restless leg syndrome Stenosis, cervical spine Osteopenia Measles Chicken pox Hearing loss Cataracts, bilateral Partial blindness Fibroids History of urinary incontinence Kidney stones Colon polyps Aortic stenosis Melanoma Left supraspinatus tendinitis GERD without esophagitis Hiatal hernia Hypothyroidism Mitral regurgitation History of optic neuritis Osteoporosis Iron (Fe) deficiency anemia Incontinence of urine Heart murmur Multiple sclerosis Surgical History Anesthesia Status post hip hemiarthroplasty Family History Mother Stroke Social History details: (Abbe - 05/10/2023), grown children, retired household members: family Tobacco & Substance Use Smoking Status: Never smoker alcohol intake: never Assessment & Plan Assessment and plan (1) Right ureteral calculus: Status: Acute Plan: 84 y/o F noted to have a few small distal right ureteroliths resulting in upstream moderate to severe right hydroureteronephrosis in the setting of a urinary tract infection. Discussed treatment options to include continued medical expulsion therapy (not recommended in the setting of a urinary tract infection) vs cystoscopy with right ureteral stent placement. Discussed risks of the procedure to include pain, bleeding, infection, injury to urethra/bladder/ureter, inability to access the ureter requiring discussion with Interventional Radiology regarding a possible ureteral stent placement in an antegrade fashion vs a possible nephroureteral stent and/or percutaneous nephrostomy tube, urinary tract infection, need for emergent open repair of bladder and/or ureter. She indicated understanding and all of her questions were answered to her satisfaction. She will need definitive right ureteroscopy with laser lithotripsy and right ureteral stent exchange in 2-12 weeks. (2) Urinary tract infection: Qualifiers: Urinary tract infection type: acute pyelonephritis Qualified Code(s): N 10 - Acute pyelonephritis Status: Acute Plan: Please see plan above regarding immediate surgical management. Antibiotic management per primary team. Recommend tailoring to UCx directed antibiotics as soon as this data is available. Time-Based Coding :: [TOTAL MINUTES] spent with patient and on the chart (including review of chart, obtaining history, exam, reviewing outside data, placing orders, documenting exam and treatment plan, and counseling patient) on [DATE]. PROFEE Charge Codes Inpatient or Observation consultation: 80894
--- NOTE | 2024-06-28 09:17 | SUR.OPER ---
Lithotomy on padded OR bed, head on pillow, arms secured on padded arm boards at <90 degrees abduction. Legs secured in padded yellow fins stirrups.
[2024-06-28] MEDS: iopamidoL 30 ML VIAL 10 ML INTRAURETH (09:45)
--- NOTE | 2024-06-28 09:58 | PM.OP.1 ---
Procedure & Clinicians Procedure: Cystoscopy Right retrograde ureteropyelogram Right ureteral stent placement Intraoperative interpretation of fluoroscopic images, total time < 1 hour Same procedure as scheduled: Yes Indications: 84 y/o F noted to have a few small distal right ureteroliths resulting in upstream moderate to severe right hydroureteronephrosis in the setting of a urinary tract infection. Surgeon: Eric Serrano Click Yes if Unassisted: Yes Anesthesia Type: General Operative Notes Findings: Cloudy urine within bladder consistent with urinary tract infection, retained contrast within right renal collecting system from earlier CT Abd/Pel Closure Type: not applicable Specimen(s): none sent Estimated Blood Loss (mL): 2 Blood products transfused: none Procedure in detail: Patient was identified in the preoperative holding area and consent confirmed. She was then brought to the operating room where general anesthesia was induced.? She was then placed in the low lithotomy position. She was then prepped and draped in the usual sterile fashion. A surgical timeout was conducted and all were in agreement. Access to the bladder was obtained via a 21Fr cystoscope.? Cloudy urine was immediately noted within the bladder.? The right ureteral orifice was easily visualized and a 0.035 sensor tip ureteral guidewire was advanced through the 5Fr ureteral catheter and into the right renal collecting system.? The ureteral guidewire was removed and a retrograde pyelogram was performed which noted moderate right hydronephrosis as well as retained contrast from her earlier CT Abd/Pel.? The ureteral guidewire was readvanced through the ureteral catheter and into the right renal pelvis.? The ureteral catheter was then removed.? A 6Fr multi-length JJ ureteral stent without strings was then advanced over the ureteral guidewire and into the right renal collecting system.? Upon removal of the ureteral guidewire, a good curl was appreciated within the right renal pelvis upon fluoroscopy and visually within the bladder.? The bladder was then drained and the cystoscope was removed.? Anesthesia was reversed, she was extubated in the OR and transferred to the PACU in stable condition for recovery. Complications: none Post-operative Condition: stable Disposition: Acute Care Plan for aftercare: Transfer back to acute care for management with the hospitalist team. Will require definitive stone management via a cystoscopy, right ureteroscopy, laser lithotripsy and right ureteral stent exchange in 2-12 weeks.
[2024-06-28] MEDS: LACTATED RINGERS 1,000 ML 42 ML IV (10:14)
[2024-06-28] MEDS: MEPERIDINE 50 MG/ML INJ 6.25 MG IV ×2 (10:22→10:30)
--- NOTE | 2024-06-28 10:58 | SUR.PHASEI ---
Order from Evelia SCHMIDT for Demerol for severe post op shivering. PUBLIC RELATIONS OFFICER ok for transfer with HR at 100.
--- NOTE | 2024-06-28 11:28 | SUR.PHASEI ---
Pt transfered to room 213 in bed on Oxygen. SBAR report to Evelia Elena. Belongings bag with cloths, purse , phone with patient and ring taped
[2024-06-28 13:04] LABS: Add Manual Diff / Slide Review NO; Basophils Absolute Auto 0 /uL (0-100); Basophils Percent Auto 0.2 % (0-2); Eosinophils Absolute Auto 0 /uL (0-450); Eosinophils Percent Auto 0.1 % (2-4); Hematocrit 32.8 % (36-46); Hemoglobin 11.4 g/dL (12.0-16.0); Lymphocytes Absolute Auto 200 /uL (1100-4500); Lymphocytes Percent Auto 1.5 % (25-40); Mean Corpuscular HGB Conc 34.6 % (30-36); Mean Corpuscular Hemoglobin 31.7 PG (26-34); Mean Corpuscular Volume 91.6 fL (80-100); Monocytes Absolute Auto 200 /uL (0-900); Monocytes Percent Auto 1.9 % (3-14); Neutrophils Absolute Auto 10400 /uL (1500-7000); Neutrophils Percent Auto 96.3 % (50-75); Platelet Count 202 X10^3/uL (150-400); Red Blood Cell Count 3.58 X10^6/uL (4.0-5.2); Red Cell Distribution Width 13.7 % (11.6-14.8); White Blood Cell Count 10.8 X10^3/uL (4.5-11.0)
[2024-06-28 13:19] LABS: BUN Creatinine Ratio 19.3 (6-22); Blood Urea Nitrogen 23 mg/dL (7-17); Calcium 8.2 mg/dL (8.4-10.2); Carbon Dioxide 21 mmol/L (22-32); Chloride 106 mmol/L (98-107); Estimated Glomerular Filt Rate 46 mL/min (>60); Glucose 114 mg/dL (80-110); HEMOLYSIS < 15 (0-50); Potassium 3.6 mmol/L (3.4-5.1); Sodium 135 mmol/L (137-145)
[2024-06-28] MEDS: LACTATED RINGERS 1,000 ML 1000 ML IV (13:32)
--- NOTE | 2024-06-28 14:05 | CM.DANOTE ---
Addendum entered by PETER Park 06/28/24 15:36: from RN, SALTY with nursing staff. standby assist with walker. does not normally use a walker at home, probably a good idea to f/u tomorrow to check on mobility to see if PT eval needed. pt still groggy this afternoon from surgery. Pt still sleeping soundly this afternoon, allowed to rest Original Note: B DCP Assessment Note pt is a 84yo F PMH of MS, aortic stenosis, hypertension, hyperlipidemia, hypothyroidism, GERD and kidney stones admitted with UTI/obstructing renal stone. pt had stent placed with urology this morning. PCP Dr. Jesenia Hampton Medicare and self pay [employer] reviewed EMR Per chart, Pt lives in [place] with brother Jossue. Per chart, POA is Venkata Bhagatter ([phone]). per chart, pt has caregivers Candy/Francine? gait unsteady, uses a walker? no PT/OT orders at this time. pt off the floor in OR for ureteral stent placement during attempted assessment. once back up to the floor, sleeping heavily throughout the day. P: anticipate return home with brother (and caregivers?). will f/u if PT/OT indicated- unsure of baseline mobility. Will continue to follow closely for DCP coordination concerns. PETER Park Discharge Planning/Care Management CM Discharge Assessment Start: 06/28/24 13:59 Freq: Status: Active Protocol: Document 06/28/24 13:59 (Rec: 06/28/24 14:05 [id number]) Discharge Planning Assessment Assigned Maintenance Department Manager PETER Caraballo DPOA/Assigned Designee Name brother Marcum Contact Information [phone] Advance Directives? Yes Advance Directives on File Yes History Provided By Patient,Family Member Prior Living Arrangements House Household Members family Type of transporation used prior to Relies on Others admit Discharge Plan Home Transportation Arrangement Family to provide transport. Referrals Initiated None needed Review Status In Process Please Provide Date Initial DC 06/28/24 Assessment Was Performed Next Review Type Continued Stay Review
--- NOTE | 2024-06-28 15:32 | PM.HP.1 ---
History of Present Illness History of Present Illness Date Patient Seen: 06/28/24 Time Patient Seen: 15:33 Chief complaint: kidney stones Narrative: Per overnight provider, 84-year-old female with past medical history of multiple sclerosis, aortic stenosis, hypertension, hyperlipidemia, hypothyroidism, GERD and kidney stones presents with dysuria and flank pain. Per the patient's report, the patient recently was diagnosed with a urinary tract infection a week ago. The patient was started on antibiotic but she did not remember what exactly it was. Despite being on antibiotic the patient continues to have dysuria and left flank pain. The patient was concerned and presented to our ER today. Otherwise the patient denies any fever, chills, nausea, vomiting, diarrhea, chest pain or shortness of breath. In our emergency room, the patient remains hemodynamically stable without sign of sepsis. US UA suggests UTI. CT scan of the abdomen and pelvic shows multiple intrarenal stones bilaterally. On the right side however there is moderately severe hydronephrosis, tortuous hydroureter and mild to moderate stranding suggests obstructive uropathy secondary to a 3 to 4 mm in the distal ureter. Dr. Serrano from urology was consulted salted and recommended to admit the patient here with IV antibiotic and IV fluid. Urology will place the ureteral stent this morning. Again the patient remains hemodynamically stable. IV cefepime as well as IV fluid and IV medication given. Interval history: Patient is now s/p R ureteral stent placed (of note hydro on the R but L flank pain) with urology today. After surgery mildly hypotensive responsive to fluid bolus. She reports to me pain was more suprapubic in nature coming in, rather than flank pain. It radiated across her lower abdomen primarily. [facility] Medical History Iliotibial band syndrome, right leg Primary osteoarthritis involving multiple joints Right hip pain Age-related osteoporosis without current pathological fracture Do not resuscitate Corneal epithelial dystrophy of right eye Mixed hyperlipidemia Essential hypertension Gait instability Hiatal hernia without gangrene and obstruction Anemia due to chronic blood loss History of melanoma Mitral valve prolapse Restless leg syndrome Stenosis, cervical spine Osteopenia Measles Chicken pox Hearing loss Cataracts, bilateral Partial blindness Fibroids History of urinary incontinence Kidney stones Colon polyps Aortic stenosis Melanoma Left supraspinatus tendinitis GERD without esophagitis Hiatal hernia Hypothyroidism Mitral regurgitation History of optic neuritis Osteoporosis Iron (Fe) deficiency anemia Incontinence of urine Heart murmur Multiple sclerosis Surgical History Anesthesia Status post hip hemiarthroplasty Family History Mother Stroke Social History details: (Abbe - 05/10/2023), grown children, retired household members: family Smoking Status: Never smoker alcohol intake: never Meds Home Medications and Allergies Home Medications Medication Instructions Recorded Confirmed Type ascorbic acid (vitamin C) 500 mg 500 mg PO DAILY 09/03/18 06/28/24 History capsule,extended release (Vitamin C) cholecalciferol (vitamin D3) 25 1,000 unit PO DAILY 09/03/18 06/28/24 History mcg (1,000 unit) tablet (Vitamin D3) coenzyme Q10 100 mg capsule 100 mg PO DAILY 09/03/18 06/28/24 History (CoQ-10) ferrous sulfate 325 mg (65 mg 325 mg PO QTUTHSA 09/03/18 06/28/24 History iron) tablet (Iron (ferrous sulfate)) prasterone (dhea) 25 mg capsule 10 mg PO DAILY 09/03/18 06/28/24 History (DHEA) selenium 100 mcg tablet 100 mcg PO DAILY 09/03/18 06/28/24 History thyroid (pork) 15 mg tablet 16.25 mg PO DAILY 09/03/18 06/28/24 History (Jay Em Thyroid) prednisolone acetate 1 % eye 1 drp ophthalmic (eye) BID 01/20/22 06/28/24 History drops,suspension progesterone micronized 200 mg 200 mg PO ONCE PM 02/08/23 06/28/24 History capsule amlodipine 5 mg tablet 5 mg PO DAILY #90 tabs 03/20/24 06/28/24 Rx estradiol 0.01% (0.1 mg/gram) 1 applic vaginal DAILY 03/20/24 06/28/24 History vaginal cream pantoprazole 40 mg tablet,delayed 40 mg PO DAILY #90 tabs 03/20/24 06/28/24 Rx release rosuvastatin 10 mg tablet 10 mg PO DAILY #90 tabs 03/20/24 06/28/24 Rx Allergies Allergy/AdvReac Type Severity Reaction Status Date / Time scallops Allergy Severe Anaphylaxis Verified 06/28/24 08:15 codeine Allergy Unknown UNK BY PT Verified 06/28/24 08:15 Penicillins Allergy Unknown UNK BY PT Verified 06/28/24 08:15 Qwtwqwp-NSH-ZhA Reductase Allergy Unknown UNK BY PT Verified 06/28/24 08:15 Inhibitor [Thzxfnp-Eue-Avm Reductase Inhibitor] Sulfa (Sulfonamide Allergy Unknown UNK BY PT Verified 06/28/24 08:15 Antibiotics) UNKNOWN ANTIBIOTIC Allergy Unknown Uncoded 03/20/24 10:42 Review of Systems Review of Systems Narrative: All other systems reviewed with the patient and are negative unless otherwise stated. Exam Vital Signs (past 8 hours): - 06/28/24 08:32 06/28/24 10:00 06/28/24 10:05 Temperature 99.2 F 98.7 F Pulse Rate 78 98 H 97 H Respiratory Rate 16 16 18 Blood Pressure 126/69 153/73 H 165/86 H Pulse Oximetry 97 96 91 Oxygen Delivery Method Room Air Room Air Nasal Cannula Oxygen Flow Rate 4 06/28/24 10:10 06/28/24 10:15 06/28/24 10:20 Temperature Pulse Rate 101 H 111 H 107 H Respiratory Rate 19 20 21 Blood Pressure 145/63 H 127/61 131/68 Pulse Oximetry 95 94 90 L Oxygen Delivery Method Room Air Nasal Cannula Nasal Cannula Oxygen Flow Rate 4 4 06/28/24 10:25 06/28/24 10:30 06/28/24 10:45 Temperature 99.8 F H Pulse Rate 108 H 105 H 99 H Respiratory Rate 20 18 14 Blood Pressure 140/60 140/71 131/59 L Pulse Oximetry 92 93 92 Oxygen Delivery Method Nasal Cannula Nasal Cannula Nasal Cannula Oxygen Flow Rate 4 4 4 06/28/24 11:00 06/28/24 11:15 06/28/24 11:50 Temperature 97.9 F 98.6 F Pulse Rate 98 H 100 H 92 H Respiratory Rate 14 14 15 Blood Pressure 123/59 L 233/59 H 109/60 Pulse Oximetry 93 93 96 Oxygen Delivery Method Nasal Cannula Nasal Cannula Oxygen Flow Rate 2 2 2 06/28/24 12:20 06/28/24 12:50 06/28/24 13:50 Temperature 97.9 F 97.3 F L Pulse Rate 85 82 86 Respiratory Rate 12 14 Blood Pressure 97/53 L 85/41 L 110/56 L Pulse Oximetry 95 96 92 Oxygen Delivery Method Oxygen Flow Rate 2 2 2 Oxygen Delivery Method Nasal Cannula Oxygen Flow Rate 2 Narrative Exam Narrative: Physical Exam: GENERAL: The patient is not in any acute distressed. Awake and alert but groggy and slowed responses. HEENT: Nonicteric sclerae, PERRLA, EOMI. Oropharynx clear. Moist mucous membranes. Conjunctivae appear well perfused. HEART: Regular rate and rhythm without murmurs. No lower extremities edema. LUNGS: Clear to auscultation bilaterally. No wheezing, crackles or rhonchi ABDOMEN: Soft, mild suprapubic tenderness, non-distended SKIN: No rash, no excessive bruising, petechiae, or purpura. NEUROLOGIC: alert, oriented to name and hospital and situation. Slowed responses. Slight muscle twitching on R face, but symmetric Objective Imaging CT scan - abdomen: Radiologist's impression: Conglomerate of stones in the right distal ureter measuring up to 4 millimeters, causing moderate to severe upstream hydronephrosis and delayed nephrogram/obstructive uropathy. Other nonobstructing calculi are seen in both kidneys. Similar probable left calyceal diverticulum with a 1.5 centimeter stone. Partially seen large hiatal hernia. Multiple other stable and incidental findings above. No significant changes from the preliminary report. Labs 06/28/24 12:53 06/28/24 12:53 Labs: Laboratory Results - last 24 hr 06/28/24 06/28/24 06/28/24 03:20 04:15 06:25 WBC 9.0 RBC 4.23 Hgb 13.2 Hct 38.7 MCV 91.5 MCH 31.2 MCHC 34.1 RDW 13.4 Plt Count 239 Neut % (Auto) 82.5 H Lymph % (Auto) 9.2 L [place] % (Auto) 6.8 Eos % (Auto) 0.8 L Baso % (Auto) 0.7 Neut # (Auto) 7500 H Lymph # (Auto) 800 L [place] # (Auto) 600 Eos # (Auto) 100 Baso # (Auto) 100 Sodium 135 L Potassium 4.0 Chloride 102 Carbon Dioxide 23 BUN 25 H Creatinine 1.07 H Estimated GFR 52 L BUN/Creatinine Ratio 23.4 H Glucose 112 H Lactate 1.1 Calcium 9.4 Total Bilirubin 0.6 AST 30 ALT 30 Alkaline Phosphatase 87 Total Protein 7.2 Albumin 3.9 Globulin 3.3 Albumin/Globulin Ratio 1.2 Urine Color Yellow Urine Appearance Cloudy Urine pH 7.0 Ur Specific [place] 1.015 Urine Protein 2+ H Urine Glucose (UA) Negative Urine Ketones 1+ H Urine Occult Blood 3+ H Urine Nitrate Positive H Urine Bilirubin Negative Urine Urobilinogen 1.0 Ur Leukocyte Esterase 3+ H Urine RBC 30-100/hpf H Urine WBC 30-100/hpf H Ur Squamous Epith Cells 0-1 /hpf Urine Bacteria Many (>30) H Ur Culture Indicated? Specimen cultured Vol Urine Centrifuged 10ml (spun) 06/28/24 12:53 WBC 10.8 RBC 3.58 L Hgb 11.4 L Hct 32.8 L MCV 91.6 MCH 31.7 MCHC 34.6 RDW 13.7 Plt Count 202 Neut % (Auto) 96.3 H Lymph % (Auto) 1.5 L [place] % (Auto) 1.9 L Eos % (Auto) 0.1 L Baso % (Auto) 0.2 Neut # (Auto) 76151 H Lymph # (Auto) 200 L [place] # (Auto) 200 Eos # (Auto) 0 Baso # (Auto) 0 Sodium 135 L Potassium 3.6 Chloride 106 Carbon Dioxide 21 L BUN 23 H Creatinine 1.19 H Estimated GFR 46 L BUN/Creatinine Ratio 19.3 Glucose 114 H Lactate Calcium 8.2 L Total Bilirubin AST ALT Alkaline Phosphatase Total Protein Albumin Globulin Albumin/Globulin Ratio Urine Color Urine Appearance Urine pH Ur Specific [place] Urine Protein Urine Glucose (UA) Urine Ketones Urine Occult Blood Urine Nitrate Urine Bilirubin Urine Urobilinogen Ur Leukocyte Esterase Urine RBC Urine WBC Ur Squamous Epith Cells Urine Bacteria Ur Culture Indicated? Vol Urine Centrifuged Assessment & Plan Assessment & Plan narrative: Sepsis secondary to acute cystitis with R obstructive nephrolithiasis with Acute metabolic encephalopathy and hypotension, POA, active - s/p R ureteral stent with urology today. - outpatient follow up with urology after discharge for cystoscopy, lithotripsy and stent removal. - continue cefepime, pending cultures of the urine and blood. UA appeared grossly infected. - SOFA score is 2 with encephalopathy and hypotension FREDI - continue IV fluids. Cr 1.19 today. Continue to follow. Baseline around 0.8. - now s/p R ureteral stent placement MS. No sign of exacerbation. Resume home medication. Hypertension. Monitor blood pressure, hold home amlodipine. Hypothyroidism. Resume home pork thyroid. Hyperlipidemia. Resume home statin, replaced with formulary. GERD resume home pantoprazole. Code: Full, surrogate is patient's spouse DVT: Lovenox daily I have utilized all available immediate resources to obtain, update, or review the patient's current medications. Dispo: patient admitted under inpatient status. Likely discharge home in 1-2 days. Additional history obtained via discussions with the overnight provider. These discussions contributed to the creation of the above assessment and plan. I have reviewed patient's presenting documentation, labs, and imaging personally. Time-Based Coding :: [TOTAL MINUTES] spent with patient and on the chart (including review of chart, obtaining history, exam, reviewing outside data, placing orders, documenting exam and treatment plan, and counseling patient) on [DATE]. Quality VTE Deep Vein Thrombosis/Pulmonary Embolism Present on Admission: No
--- NOTE | 2024-06-28 16:56 | PC.NURSE ---
Day shift: Dr Curran made aware of gram neg rods in one of the blood culture bottles at 1700.
[2024-06-28] MEDS: PROGESTERONE, MICRONIZED 100 MG CAPSULE 200 MG PO (17:10)
[2024-06-28] MEDS: CEFEPIME 1 GM in SODIUM CHLORIDE 0.9% 100 ML IV (17:31)
[2024-06-28 18:05] LABS: Acinetobacter calcoa-baumannii Not Detected (Not Detect); Bacteroides fragilis Not Detected (Not Detect); CTX-M Resistance Not Detected (Not Detect); Candida albicans Not Detected (Not Detect); Candida auris Not Detected (Not Detect); Candida glabrata Not Detected (Not Detect); Candida krusei Not Detected (Not Detect); Candida parapsilosis Not Detected (Not Detect); Candida tropicalis Not Detected (Not Detect); Cryptococcus neoformans/gatti Not Detected (Not Detect); Enterobacter cloacae complex Not Detected (Not Detect); Enterobacterales Detected (Not Detect); Enterococcus faecalis Not Detected (Not Detect); Enterococcus faecium Not Detected (Not Detect); Haemophilus influenzae Not Detected (Not Detect); IMP Resistance Not Detected (Not Detect); KPC Resistance Not Detected (Not Detect); Klebsiella aerogenes Not Detected (Not Detect); Listeria monocytogenes Not Detected (Not Detect); NDM Resistance Not Detected (Not Detect); Neisseria meningitidis Not Detected (Not Detect); OXA-48-like Resistance Not Detected (Not Detect); Proteus species Detected (Not Detect); Pseudomonas aeruginosa Not Detected (Not Detect); Salmonella species Not Detected (Not Detect); Serratia marcescens Not Detected (Not Detect); Staphylococcus epidermidis Not Detected (Not Detect); Staphylococcus lugdunensis Not Detected (Not Detect); Staphylococcus species Not Detected (Not Detect); Stenotrophomonas maltophilia Not Detected (Not Detect); Streptococcus agalactiae (Gr B Not Detected (Not Detect); Streptococcus pneumonia Not Detected (Not Detect); Streptococcus pyogenes (Gr A) Not Detected (Not Detect); Streptococcus species Not Detected (Not Detect); VIM Resistance Not Detected (Not Detect)
[2024-06-28] MEDS: prednisoLONE OPHTH SUSP 1 DROPS EYE-BOTH (20:11)
[2024-06-28] MEDS: ATORVASTATIN 20 MG TABLET PO (20:12)
[2024-06-28] MEDS: ZOLPIDEM 5 MG TABLET PO (21:08)
[2024-06-28] MEDS: ROPINIROLE 0.25 MG TABLET PO (21:08)
[2024-06-29] VITALS: BP 104/52; PULSE 71; RESP 16; TEMP 36.8; O2SAT 97
[2024-06-29 04:55] VITALS: BP 108/59; PULSE 73; RESP 16; TEMP 36.5; O2SAT 94
[2024-06-29] MEDS: CEFEPIME 1 GM in SODIUM CHLORIDE 0.9% 100 ML IV ×2 (05:40→17:17)
[2024-06-29 07:10] LABS: Add Manual Diff / Slide Review NO; Basophils Absolute Auto 100 /uL (0-100); Basophils Percent Auto 0.7 % (0-2); Eosinophils Absolute Auto 100 /uL (0-450); Eosinophils Percent Auto 1.3 % (2-4); Hematocrit 33.6 % (36-46); Hemoglobin 11.6 g/dL (12.0-16.0); Lymphocytes Absolute Auto 700 /uL (1100-4500); Lymphocytes Percent Auto 7.1 % (25-40); Mean Corpuscular HGB Conc 34.6 % (30-36); Mean Corpuscular Hemoglobin 31.8 PG (26-34); Mean Corpuscular Volume 91.8 fL (80-100); Monocytes Absolute Auto 700 /uL (0-900); Monocytes Percent Auto 6.7 % (3-14); Neutrophils Absolute Auto 8700 /uL (1500-7000); Neutrophils Percent Auto 84.2 % (50-75); Platelet Count 221 X10^3/uL (150-400); Red Blood Cell Count 3.66 X10^6/uL (4.0-5.2); Red Cell Distribution Width 13.5 % (11.6-14.8); White Blood Cell Count 10.3 X10^3/uL (4.5-11.0)
[2024-06-29 07:21] LABS: BUN Creatinine Ratio 16.9 (6-22); Blood Urea Nitrogen 21 mg/dL (7-17); Calcium 8.6 mg/dL (8.4-10.2); Carbon Dioxide 26 mmol/L (22-32); Chloride 106 mmol/L (98-107); Estimated Glomerular Filt Rate 43 mL/min (>60); Glucose 91 mg/dL (80-110); HEMOLYSIS < 15 (0-50); Potassium 4.2 mmol/L (3.4-5.1); Sodium 136 mmol/L (137-145)
[2024-06-29 08:00] VITALS: BP 119/60; PULSE 78; RESP 17; TEMP 36.6; O2SAT 94
[2024-06-29] MEDS: PANTOPRAZOLE DR 40 MG TABLET PO (08:41)
[2024-06-29] MEDS: CHOLECALCIFEROL (VITAMIN D3) 1,000 UNIT TABLET 1000 UNIT PO (08:41)
[2024-06-29] MEDS: ASCORBIC ACID 500 MG TABLET PO (08:41)
[2024-06-29] MEDS: FERROUS SULFATE 325 MG TABLET PO (08:41)
[2024-06-29] MEDS: prednisoLONE OPHTH SUSP 1 DROPS EYE-BOTH ×2 (08:42→20:26)
--- NOTE | 2024-06-29 14:00 | CM.DPNOTE ---
DORCAS Simental Met w/patient and her brother this morning to review discharge plan. Patient lives w/her brother, has two privately paid caregivers; Candy who visits 3 days per week and Francine that visits 2 days per week. Caregivers assist with chores, meal prep, driving and anything else patient requests help with. Patient is indp w/most ADLs although cannot see well due to her macular degeneration. Patient is eager to return home, brother or caregiver to drive home upon discharge. Patient denies needs from this CM team currently. CM team will plan to follow clinical course closely. ZAY
[2024-06-29 16:00] VITALS: BP 134/65; PULSE 70; RESP 18; TEMP 36.7; O2SAT 97
[2024-06-29] MEDS: PROGESTERONE, MICRONIZED 100 MG CAPSULE 200 MG PO (16:12)
--- NOTE | 2024-06-29 16:53 | P.PN_ITS ---
Subjective Subjective Interval history: 84 F with PMH of MS, HTN, HLD, hypothyroid admitted initially with obstructing kidney stone, with sepsis due to acute cystitis and gram negative bacteremia. She is feeling well today, with no abdominal pain. She is tolerating a diet. Exam Vital Signs (past 8 hours): Oxygen Delivery Method Nasal Cannula Oxygen Flow Rate 0 Narrative Exam Narrative: Physical Exam: GENERAL: The patient is not in any acute distressed. Awake and alert but groggy and slowed responses. HEENT: Nonicteric sclerae, PERRLA, EOMI. Oropharynx clear. Moist mucous membranes. Conjunctivae appear well perfused. HEART: Regular rate and rhythm without murmurs. No lower extremities edema. LUNGS: Clear to auscultation bilaterally. No wheezing, crackles or rhonchi ABDOMEN: Soft, mild suprapubic tenderness, non-distended SKIN: No rash, no excessive bruising, petechiae, or purpura. NEUROLOGIC: alert, oriented to name and hospital and situation. Slowed responses. Slight muscle twitching on R face, but symmetric Objective Labs 06/29/24 06:40 06/29/24 06:40 Labs: Laboratory Results - last 24 hr 06/28/24 06/29/24 06:25 06:40 WBC 10.3 RBC 3.66 L Hgb 11.6 L Hct 33.6 L MCV 91.8 MCH 31.8 MCHC 34.6 RDW 13.5 Plt Count 221 Neut % (Auto) 84.2 H Lymph % (Auto) 7.1 L [place] % (Auto) 6.7 Eos % (Auto) 1.3 L Baso % (Auto) 0.7 Neut # (Auto) 8700 H Lymph # (Auto) 700 L [place] # (Auto) 700 Eos # (Auto) 100 Baso # (Auto) 100 Sodium 136 L Potassium 4.2 Chloride 106 Carbon Dioxide 26 BUN 21 H Creatinine 1.24 H Estimated GFR 43 L BUN/Creatinine Ratio 16.9 Glucose 91 Calcium 8.6 A.calcoaceticus-baumannii cmplx PCR Not detected Bacteroides fragilis Not detected Deya albicans (PCR) Not detected Deya auris (PCR) Not detected C. glabrata (PCR) Not detected C. krusei (PCR) Not detected C. parapsilosis (PCR) Not detected C. tropicalis (PCR) Not detected C. neoform/gattii (PCR) Not detected Enterobacterales (PCR) Detected E. cloacae complex PCR Not detected Enterococc faecalis PCR Not detected Enterococc faecium PCR Not detected E. coli (PCR) Not detected H. influenzae (PCR) Not detected Klebsiella aerogenes (PCR) Not detected Klebsiella oxytoca PCR Not detected Klebsiella pneumoniae Not detected List. monocytogenes PCR Not detected N. meningitidis (PCR) Not detected Proteus species (PCR) Detected Salmonella spp. (PCR) Not detected Serratia marcescens PCR Not detected Staphylococcus sp PCR Not detected Staph aureus (PCR) Not detected mecA/C & MREJ Resist Gene Not applicable mecA/C-Methicil Resis Gene Not applicable mcr-1 Colistin Res Gene PCR Not applicable Staph epidermidis (PCR) Not detected Staph lugdunensis PCR Not detected S. maltophilia (PCR) Not detected Streptococcus sp PCR Not detected Group A Strep (PCR) Not detected Strep agalactiae (PCR) Not detected Strep pneumoniae (PCR) Not detected P. aeruginosa (PCR) Not detected Matilda/B-Vanco Res Genes Not applicable blaIMP Car res Gene PCR Not detected KPC-Carbap Res Gene PCR Not detected blaNDM Car Res Gene PCR Not detected OXA-48 Carbapenem Resis Gene (PCR) Not detected blaVIM Car Res Gene PCR Not detected CTX-M Gene Resistance (PCR) Not detected PFSH Medical History Iliotibial band syndrome, right leg Primary osteoarthritis involving multiple joints Right hip pain Age-related osteoporosis without current pathological fracture Do not resuscitate Corneal epithelial dystrophy of right eye Mixed hyperlipidemia Essential hypertension Gait instability Hiatal hernia without gangrene and obstruction Anemia due to chronic blood loss History of melanoma Mitral valve prolapse Restless leg syndrome Stenosis, cervical spine Osteopenia Measles Chicken pox Hearing loss Cataracts, bilateral Partial blindness Fibroids History of urinary incontinence Kidney stones Colon polyps Aortic stenosis Melanoma Left supraspinatus tendinitis GERD without esophagitis Hiatal hernia Hypothyroidism Mitral regurgitation History of optic neuritis Osteoporosis Iron (Fe) deficiency anemia Incontinence of urine Heart murmur Multiple sclerosis Surgical History Anesthesia Status post hip hemiarthroplasty Family History Mother Stroke Social History details: (Abbe - 05/10/2023), grown children, retired household members: family Smoking Status: Never smoker alcohol intake: never Assessment & Plan Assessment & Plan narrative: Sepsis secondary to acute cystitis and gram negative bacteremia with R obstructive nephrolithiasis with Acute metabolic encephalopathy and hypotension, POA, active - s/p R ureteral stent with urology 06/28. Blood cultures and urine cultures with gram negative bacteremia. - outpatient follow up with urology after discharge for cystoscopy, lithotripsy and stent removal. - continue cefepime, pending cultures of the urine and blood. Currently with gram negative organisms. - SOFA score is 3 with encephalopathy and hypotension and FREDI FREDI - Cr 1.26 today. Continue to follow. Baseline around 0.8. - now s/p R ureteral stent placement MS. No sign of exacerbation. Resume home medication. Hypertension. Monitor blood pressure, hold home amlodipine. Hypothyroidism. Resume home pork thyroid. Hyperlipidemia. Resume home statin, replaced with formulary. GERD resume home pantoprazole. Code: Full, surrogate is patient's spouse DVT: Lovenox daily I have utilized all available immediate resources to obtain, update, or review the patient's current medications. Dispo: patient admitted under inpatient status. Likely discharge home once cultures finalize so appropriate antibiotics can be selected. Additional history obtained via discussions with the overnight provider. These discussions contributed to the creation of the above assessment and plan. I have reviewed patient's presenting documentation, labs, and imaging personally. Time-Based Coding :: [TOTAL MINUTES] spent with patient and on the chart (including review of chart, obtaining history, exam, reviewing outside data, placing orders, documenting exam and treatment plan, and counseling patient) on [DATE]. Quality VTE Deep Vein Thrombosis/Pulmonary Embolism Present on Admission: No
[2024-06-29 20:03] VITALS: BP 140/72; PULSE 86; RESP 19; TEMP 37.1; O2SAT 94
[2024-06-29] MEDS: CALCIUM CARBONATE 500 MG TAB 1000 MG PO (20:25)
[2024-06-29] MEDS: ATORVASTATIN 20 MG TABLET PO (20:25)
[2024-06-29] MEDS: ZOLPIDEM 5 MG TABLET PO (20:25)
[2024-06-30 04:00] VITALS: BP 138/86; PULSE 74; RESP 19; TEMP 37.1; O2SAT 96
[2024-06-30] MEDS: CEFEPIME 1 GM in SODIUM CHLORIDE 0.9% 100 ML IV (05:51)
[2024-06-30 07:00] LABS: Add Manual Diff / Slide Review NO; Basophils Absolute Auto 100 /uL (0-100); Basophils Percent Auto 0.9 % (0-2); Eosinophils Absolute Auto 200 /uL (0-450); Eosinophils Percent Auto 2.3 % (2-4); Hematocrit 34.7 % (36-46); Hemoglobin 11.8 g/dL (12.0-16.0); Lymphocytes Absolute Auto 1000 /uL (1100-4500); Lymphocytes Percent Auto 14.7 % (25-40); Mean Corpuscular Hemoglobin 31.2 PG (26-34); Mean Corpuscular Volume 91.7 fL (80-100); Monocytes Absolute Auto 800 /uL (0-900); Neutrophils Absolute Auto 5000 /uL (1500-7000); Neutrophils Percent Auto 71.1 % (50-75); Platelet Count 225 X10^3/uL (150-400); Red Blood Cell Count 3.78 X10^6/uL (4.0-5.2); Red Cell Distribution Width 13.6 % (11.6-14.8)
[2024-06-30 07:13] LABS: BUN Creatinine Ratio 15.7 (6-22); Blood Urea Nitrogen 16 mg/dL (7-17); Calcium 8.9 mg/dL (8.4-10.2); Carbon Dioxide 23 mmol/L (22-32); Chloride 107 mmol/L (98-107); Estimated Glomerular Filt Rate 55 mL/min (>60); Glucose 92 mg/dL (80-110); HEMOLYSIS < 15 (0-50); Potassium 3.9 mmol/L (3.4-5.1); Sodium 136 mmol/L (137-145)
--- NOTE | 2024-06-30 07:47 | PM.DS.1 ---
History of Present Illness History of Present Illness Date Patient Seen: 06/30/24 Chief complaint: kidney stones Narrative: Per overnight provider, 84-year-old female with past medical history of multiple sclerosis, aortic stenosis, hypertension, hyperlipidemia, hypothyroidism, GERD and kidney stones presents with dysuria and flank pain. Per the patient's report, the patient recently was diagnosed with a urinary tract infection a week ago. The patient was started on antibiotic but she did not remember what exactly it was. Despite being on antibiotic the patient continues to have dysuria and left flank pain. The patient was concerned and presented to our ER today. Otherwise the patient denies any fever, chills, nausea, vomiting, diarrhea, chest pain or shortness of breath. In our emergency room, the patient remains hemodynamically stable without sign of sepsis. US UA suggests UTI. CT scan of the abdomen and pelvic shows multiple intrarenal stones bilaterally. On the right side however there is moderately severe hydronephrosis, tortuous hydroureter and mild to moderate stranding suggests obstructive uropathy secondary to a 3 to 4 mm in the distal ureter. Dr. Serrano from urology was consulted salted and recommended to admit the patient here with IV antibiotic and IV fluid. Urology will place the ureteral stent this morning. Again the patient remains hemodynamically stable. IV cefepime as well as IV fluid and IV medication given. Interval history: Patient is now s/p R ureteral stent placed (of note hydro on the R but L flank pain) with urology today. After surgery mildly hypotensive responsive to fluid bolus. She reports to me pain was more suprapubic in nature coming in, rather than flank pain. It radiated across her lower abdomen primarily. Discharge Providers Provider Date of admission: 06/28/24 06:14 Discharge Date: 06/30/24 Primary care physician: Brice Ba MD Discharge provider: Sung Curran DO Summary Hospital Course Discharge Diagnosis: Sepsis secondary to acute cystitis with R obstructive nephrolithiasis Acute metabolic encephalopathy, POA, improved hypotension, POA, active, improved FREDI, POA, improved MS. Chronic Hypertension. Chronic, active Hypothyroidism. Chronic Hyperlipidemia. Chronic GERD Chronic Hospital Course: This is an 84-year-old female with a past medical history multiple sclerosis, hypertension, hypothyroidism, hyperlipidemia, GERD who was admitted after presenting with abdominal pain and found to have an obstructive right kidney stone with acute cystitis. Her presentation was consistent with sepsis with an acute metabolic encephalopathy and hypotension that improved with fluids. She was started on cefepime initially. Urology took her directly from the emergency room for stent placement, and is recommended to follow-up with urology as an outpatient within 2-12 weeks for cystoscopy, lithotripsy, and stent removal. She continued to improve with fluids and cefepime. Both blood and urine cultures returned positive with a pansensitive Proteus mirabilis. On the day of discharge, she was hemodynamically stable, with no white blood cell count, no pain, and tolerating a diet. Her creatinine had been a bit elevated at 1.2 but improved to 1.02 on the day of discharge. She was discharged home with ciprofloxacin to complete a 14 day total course of antibiotic therapy given her complicated cystitis. She will follow up with outpatient Urology as noted above and was provided with contact information. No other changes to her home medications were recommended at the time of discharge. Time Spent with Patient Time spent: Greater than 30 minutes Exam Vital Signs (past 8 hours): - 06/30/24 04:00 Temperature 98.8 F Pulse Rate 74 Respiratory Rate 19 Blood Pressure 138/86 Pulse Oximetry 96 Oxygen Flow Rate 0 Oxygen Delivery Method Nasal Cannula Oxygen Flow Rate 0 Narrative Exam Narrative: Physical Exam: GENERAL: The patient is not in any acute distressed. Awake and alert but groggy and slowed responses. HEENT: Nonicteric sclerae, PERRLA, EOMI. Oropharynx clear. Moist mucous membranes. Conjunctivae appear well perfused. HEART: Regular rate and rhythm without murmurs. No lower extremities edema. LUNGS: Clear to auscultation bilaterally. No wheezing, crackles or rhonchi ABDOMEN: Soft, mild suprapubic tenderness, non-distended SKIN: No rash, no excessive bruising, petechiae, or purpura. NEUROLOGIC: alert, oriented. Ambulating without assistance. Objective Labs 06/30/24 05:50 06/30/24 05:50 Labs: Laboratory Results - last 24 hr 06/30/24 05:50 WBC 7.0 RBC 3.78 L Hgb 11.8 L Hct 34.7 L MCV 91.7 MCH 31.2 MCHC 34.0 RDW 13.6 Plt Count 225 Neut % (Auto) 71.1 Lymph % (Auto) 14.7 L [place] % (Auto) 11.0 Eos % (Auto) 2.3 Baso % (Auto) 0.9 Neut # (Auto) 5000 Lymph # (Auto) 1000 L [place] # (Auto) 800 Eos # (Auto) 200 Baso # (Auto) 100 Sodium 136 L Potassium 3.9 Chloride 107 Carbon Dioxide 23 BUN 16 Creatinine 1.02 Estimated GFR 55 L BUN/Creatinine Ratio 15.7 Glucose 92 Calcium 8.9 PFSH Medical History Iliotibial band syndrome, right leg Primary osteoarthritis involving multiple joints Right hip pain Age-related osteoporosis without current pathological fracture Do not resuscitate Corneal epithelial dystrophy of right eye Mixed hyperlipidemia Essential hypertension Gait instability Hiatal hernia without gangrene and obstruction Anemia due to chronic blood loss History of melanoma Mitral valve prolapse Restless leg syndrome Stenosis, cervical spine Osteopenia Measles Chicken pox Hearing loss Cataracts, bilateral Partial blindness Fibroids History of urinary incontinence Kidney stones Colon polyps Aortic stenosis Melanoma Left supraspinatus tendinitis GERD without esophagitis Hiatal hernia Hypothyroidism Mitral regurgitation History of optic neuritis Osteoporosis Iron (Fe) deficiency anemia Incontinence of urine Heart murmur Multiple sclerosis Surgical History Anesthesia Status post hip hemiarthroplasty Family History Mother Stroke Social History details: (Abbe - 05/10/2023), grown children, retired household members: family Smoking Status: Never smoker alcohol intake: never Discharge Plan Discharge Plan Patient Disposition: Home Provider Discharge Comment: You were admitted to the hospital with a kidney stone blocking your ureter (the tube that connects your kidney to your bladder). Urology placed a stent. You will need to call the urology clinic tomorrow to discuss an appointment time to discuss lithotripsy and stent removal with them. You also had a urinary infection with this, treatment is 2 weeks total of antibiotics, please complete entire course of antibiotics sent to your pharmacy. Discharge orders & Medications Prescriptions: New ciprofloxacin HCl 500 mg tablet 500 mg PO Q12H 11 Days Qty: 22 0RF Continued prednisolone acetate 1 % drops,suspension 1 drp ophthalmic (eye) BID progesterone micronized 200 mg capsule 200 mg PO ONCE PM estradiol 0.01 % (0.1 mg/gram) cream 1 applic vaginal DAILY pantoprazole 40 mg tablet,delayed release (DR/EC) 40 mg PO DAILY Qty: 90 3RF rosuvastatin 10 mg tablet 10 mg PO DAILY Qty: 90 3RF amlodipine 5 mg tablet 5 mg PO DAILY Qty: 90 3RF thyroid (pork) [[place] Thyroid] 15 mg Tablet 16.25 mg PO DAILY prasterone (dhea) [DHEA] 25 mg Capsule 10 mg PO DAILY ferrous sulfate [Iron (ferrous sulfate)] 325 mg (65 mg iron) Tablet 325 mg PO QTUTHSA Patient Comments: hasn't taken for months ascorbic acid (vitamin C) [Vitamin C] 500 mg Capsule, Extended Release 500 mg PO DAILY selenium 100 mcg Tablet 100 mcg PO DAILY coenzyme Q10 [CoQ-10] 100 mg Capsule 100 mg PO DAILY cholecalciferol (vitamin D3) [Vitamin D3] 1,000 unit Tablet 1,000 unit PO DAILY Follow up/Referrals: Eric Serrano DO [Physician] - 2 Weeks (S/p ureteral stent, f/u for lithotripsy ureteroscopy and stent removal 2-12 weeks per note) Brice Ba MD [Primary Care Provider] - Diet/Activity/Treatments Diet: Diet as Tolerated and Regular Activity: No restrictions Visit Report/Discharge Packet Instructions: DI for Kidney Stones, DI for Cystoscopy, DI for Ureteral Stent Placement Stand Alone Forms: Patient Portal/API, Stroke Signs & Symptoms Discharge Data Primary Care Provider: Brice Ba V Quality VTE Deep Vein Thrombosis/Pulmonary Embolism Present on Admission: No
[2024-06-30 08:00] VITALS: BP 137/74; PULSE 71; RESP 16; TEMP 36.4; O2SAT 95
[2024-06-30] MEDS: ASCORBIC ACID 500 MG TABLET PO (09:32)
[2024-06-30] MEDS: CHOLECALCIFEROL (VITAMIN D3) 1,000 UNIT TABLET 1000 UNIT PO (09:32)
[2024-06-30] MEDS: CIPROFLOXACIN 250 MG TABLET 500 MG PO (09:32)
[2024-06-30] MEDS: PANTOPRAZOLE DR 40 MG TABLET PO (09:32)
[2024-06-30] MEDS: prednisoLONE OPHTH SUSP 1 DROPS EYE-BOTH (09:33)
--- NOTE | 2024-06-30 10:56 | PC.NURSE ---
Pt is dressed and ready for discharge home with Caregiver. IV has been removed. Went over d/c instructions with Pt and CG-discussed d/c meds, time of last dose, reviewed stroke education, s/s of stroke, and follow up appointment. Encouraged Pt to drink plenty of fluids to prevent constipation, dehydration, and flush the kidneys. Reminded Pt to take the full course of her abx as ordrered. Pt denied further questions and was taken out via w/c by CARE INFORMATION ASSOCIATE to POV with CG and all belongings.
--- NOTE | 2024-06-30 11:02 | CM.DPNOTE ---
DCP note SALES ASSISTANT INSTITUTIONAL SALES reviewed EMR Per provider, pt cleared to dc home today, no IV abx needed at dc. Per RN, pt working on finding ride home but likely will be with CG. per chart, pt left prior to being seen by this SALES ASSISTANT INSTITUTIONAL SALES SALES ASSISTANT INSTITUTIONAL SALES updated TCM team P: dc home with brother/CG support and OP f/u as needed. no CM needs, will continue to follow as needed [place]
== END 2024-06-30 10:59 | disposition home or self-care (01) | DRG 853 ==
LOC: ED 05:59 → AC 07:21
PROVIDERS: Internal Medicine; Urology; Admitting Provider Internal Medicine; Emergency Provider Emergency Medicine; PCP Internal Medicine; Referring Provider Emergency Medicine; Visit Provider Internal Medicine
PROC: 0T768DZ Dilation of Right Ureter with Intraluminal Device, Via Natural or Artificial Opening Endoscopic (ICD-10-PCS; principal; 2024-06-28 09:30)
DX: A41.59 Other Gram-negative sepsis (principal); G93.41 Metabolic encephalopathy; N13.6 Pyonephrosis; N17.9 Acute kidney failure, unspecified; G35 Multiple sclerosis; I10 Essential (primary) hypertension; E03.9 Hypothyroidism, unspecified; E78.5 Hyperlipidemia, unspecified; K21.9 Gastro-esophageal reflux disease without esophagitis; R65.20 Severe sepsis without septic shock; D50.9 Iron deficiency anemia, unspecified; Z79.890 Hormone replacement therapy
CPT/HCPCS: 36415; 74177; 80048; 80053; 81001; 81003; 83605; 85025; 87040; 87077; 87086; 87154; 87186; 96361; 96365; 96375; 99284; C2617; J0692; J1171; J2175; J2405; J2704; J3010; Q9967

== ENCOUNTER → 2024-07-05 13:55 | Outpatient (CLI) | payer MEDICARE, SELFPAY ==
[2024-06-28 11:21] VITALS: BMI 25.4
== END ==
PROVIDERS: PCP Internal Medicine; Visit Provider Urology
DX: N39.0 Urinary tract infection, site not specified (principal)
CPT/HCPCS: 87086

== ENCOUNTER → 2024-07-09 14:32 | Outpatient (CLI) | payer MEDICARE, SELFPAY ==
[2024-06-28 11:21] VITALS: BMI 25.4
[2024-07-09 14:54] LABS: Appearance Urine UA CLOUDY; Bilirubin Urine UA NEGATIVE (NEGATIVE); Color Urine UA YELLOW; Glucose Urine UA NEGATIVE (Negative); Ketones Urine UA NEGATIVE (NEGATIVE); Leukocyte Esterase Urine UA TRACE (NEGATIVE); Nitrite Urine UA NEGATIVE (Negative); Occult Blood Urine UA 3+ (Negative); Protein Urine UA 2+ (Negative); Specific Gravity Urine UA 1.025 (1.000-1.035); Urobilinogen Urine UA 0.2 E.U./dL (0.2)
[2024-07-09 15:05] LABS: pH Urine UA 5.5 (4.5-8.0)
[2024-07-09 15:07] LABS: Bacteria Urine Occasional (0-1); Culture Indicated Urine Cult Not Indicated; RBC Urine 10-30/HPF (0-5/HPF); Squamous Epithelial Cell Urine None Seen (0-5/HPF); Urine Volume 10mL (spun); WBC Urine 0-1/HPF (0-5/HPF)
== END ==
PROVIDERS: PCP Internal Medicine; Visit Provider Urology
DX: N10 Acute pyelonephritis (principal)
CPT/HCPCS: 81001

== ENCOUNTER 2024-07-12 07:42 | Day surgery (SDC) | payer MEDICARE, SELFPAY ==
[2024-06-28 11:21] VITALS: BMI 25.4
[2024-07-05 11:29] VITALS: BMI 26.8
[2024-07-12] VITALS (7 sets, daily range): BP systolic 113–140; BP diastolic 61–85; PULSE 56–74; RESP 10–16; TEMP 36.2–37.1; O2SAT 97–100; BMI 24.2
--- NOTE | 2024-07-12 | DI.RAD.S_ITS ---
PROCEDURE: XR ABDOMEN 1V INDICATIONS: CYSTOSCOPY RT SIDE TECHNIQUE: Two fluoroscopic intra-operative images acquired by the Urology service. COMPARISON: None. FINDINGS/ IMPRESSION: Intraoperative fluoroscopy for the Urology service procedure. Dictated by: Danielle Gomez M.D. on 07/12/2024 at 14:58 Approved by: Danielle Gomez M.D. on 07/12/2024 at 14:59
[2024-07-12] MEDS: LACTATED RINGERS 1,000 ML 42 ML IV (08:50)
[2024-07-12] MEDS: FAMOTIDINE 20 MG/2 ML VIAL IV (08:53)
[2024-07-12] MEDS: ACETAMINOPHEN 325 MG TABLET 975 MG PO (08:53)
--- NOTE | 2024-07-12 08:57 | PM.PREOP ---
Pre-operative Note COVID-19 COVID-19 status: Not tested Interval Note History & Physical reviewed/Exam performed by Physician: Yes Changes to H&P: No
[2024-07-12] MEDS: levoFLOXacin 500 MG/100 ML PIGGYBACK 100 MG IV (09:30)
--- NOTE | 2024-07-12 09:51 | SUR.OPER ---
Lithotomy on padded OR bed, head on pillow, arms secured on padded arm boards at <90 degrees abduction. Legs secured in padded yellow fins stirrups.
[2024-07-12] MEDS: iopamidoL 30 ML VIAL INJ (10:03)
[2024-07-12] MEDS: LACTATED RINGERS 1,000 ML 21 ML IV (10:25)
--- NOTE | 2024-07-12 11:12 | PM.OP.1 ---
Procedure & Clinicians Procedure: Cystoscopy Right retrograde ureteropyelogram Right ureteroscopy, laser lithotripsy Right ureteral stent exchange Intraoperative interpretation of fluoroscopic images, total time < 1 hour Same procedure as scheduled: Yes Indications: 84 y/o F noted to have a few small distal right ureteroliths resulting in upstream moderate to severe right hydroureteronephrosis in the setting of a urinary tract infection and a few additional right non-obstructing nephroliths (large right lower pole calculus) s/p a cystoscopy w/ right ureteral stent placement on 28 Jun 2024. She returns today for definitive stone management via a cystoscopy, right ureteroscopy, laser lithotripsy and right ureteral stent exchange. Surgeon: Eric Serrano Click Yes if Unassisted: Yes Anesthesia Type: General Operative Notes Findings: Interval passage of right distal ureteroliths, large right lower pole calculus Closure Type: not applicable Specimen(s): none sent Estimated Blood Loss (mL): 20 Procedure in detail: Procedures: 1) Cystoscopy 2) Right retrograde ureteropyelogram 3) Right ureteroscopy, laser lithotripsy 4) Right ureteral stent exchange 5) Intraoperative interpretation of fluoroscopic images, < 1 hour, all images saved to PACS Indication: Patient was identified in the preoperative holding area and consent confirmed. She was then brought to the operating room where general anesthesia was induced.? She was placed in the low lithotomy position. She was then prepped and draped in the usual sterile fashion. A surgical timeout was conducted and all were in agreement. ?Access to the bladder was obtained via a 30 degree cystoscope.? Complete cystoscopy was then performed and no concerning bladder masses or lesions were appreciated.? Bilateral ureteral orifices were easily identified and noted to be orthotopic in nature.? The previously placed right ureteral stent was easily visualized and externalized using the stent grasper.? A 0.035 sensor tip ureteral guidewire was advanced through the stent and into the right renal pelvis.? A flexible ureteroscope was then advanced alongside the aforementioned ureteral guidewire and into the mid right ureter, interval passage of her distal right ureteral stones was appreciated and the ureteroscope was removed. A 12/14Fr ureteral access sheath was then advanced over the ureteral guidewire and into the proximal right ureter.? The ureteral guidewire and inner obturator were then removed.? The flexible ureteroscope was then advanced through the ureteral access sheath and into the right renal collecting system.? Complete pyeloscopy was then performed and a large calculus was noted to be within the right lower pole calyx.? Laser lithotripsy was then performed utilizing the 200 micron laser fiber.? After lasering for more than 60 minutes, visibility became very poor and the decision was made to have her return to the OR for a second look ureteroscopy. A retrograde pyelogram was then performed which noted no filling defects concerning for residual stone.? The ureteral guidewire was then readvanced through the ureteroscope and into the right renal pelvis.? The ureter was then directly visualized upon removal of the ureteroscope and ureteral access sheath and noted to be stone free.? The cystoscope was then backloaded over the ureteral guidewire and advanced into the bladder.? A 6Fr multi-length JJ ureteral stent without strings was then advanced over the ureteral guidewire.? Upon removal of the guidewire, a good curl was noted within the right renal pelvis upon fluoroscopy and visually within the bladder.? The bladder was then drained and the cystoscope was removed.? Anesthesia was reversed, she was extubated in the OR and transferred to the PACU in stable condition for recovery. Complications: none Post-operative Condition: stable Disposition: PACU Plan for aftercare: Discharge home from PACU. Will return to OR for a second look right ureteroscopy, laser lithotripsy and ureteral stent exchange.
== END 2024-07-12 12:45 | disposition home or self-care (01) ==
PROVIDERS: PCP Internal Medicine; Referring Provider Urology; Visit Provider Urology
PROC: 0TF68ZZ Fragmentation in Right Ureter, Via Natural or Artificial Opening Endoscopic (ICD-10-PCS; CPT 52353; principal; 2024-07-12 09:15)
DX: N20.2 Calculus of kidney with calculus of ureter (principal)
CPT/HCPCS: 52356; 74018; 74420; 76000; C2617; J1100; J1885; J1956; J2405; J2704; J3010; J3490; Q9967

== ENCOUNTER → 2024-07-23 15:21 | Outpatient (CLI) | payer MEDICARE, SELFPAY ==
[2024-06-28 11:21] VITALS: BMI 25.4
== END ==
PROVIDERS: PCP Internal Medicine; Visit Provider Urology
DX: N13.2 Hydronephrosis with renal and ureteral calculous obstruction (principal); Z87.440 Personal history of urinary (tract) infections
CPT/HCPCS: 51798; 87086; 99214

== ENCOUNTER 2024-08-26 10:52 | Day surgery (SDC) | payer MEDICARE, SELFPAY ==
[2024-06-28 11:21] VITALS: BMI 25.4
[2024-08-02 12:49] VITALS: BMI 24.4
[2024-08-26] VITALS (8 sets, daily range): BP systolic 117–151; BP diastolic 59–80; PULSE 59–82; RESP 12–16; TEMP 36.1–36.8; O2SAT 97–99; BMI 24.4
--- NOTE | 2024-08-26 | DI.RAD.S_ITS ---
PROCEDURE: XR ABDOMEN 1V INDICATIONS: RIGHT STENT PLACEMENT TECHNIQUE: 2 intra-operative images acquired by the Urology service. COMPARISON: [facility], CR, XR ABDOMEN 1V, 07/12/2024, 10:50. FINDINGS: Intraoperative fluoroscopic images shows contrast filling of markedly distended right renal collecting system and right renal pelvis. There is a right-sided ureteral stent. IMPRESSION: Fluoro guidance was provided for right-sided ureteral stent placement by the ordering physician. Dictated by: Ajay Byrd M.D. on 08/26/2024 at 20:44 Approved by: Ajay Byrd M.D. on 08/26/2024 at 20:44
--- NOTE | 2024-08-26 11:19 | EKG_ITS ---
[place] [id number] [address] [place] [id number] Test Date: 2024-08-26 Pat Name: Marce Dillon Department: Room: Gender: Female Silverware Supervisor: Yair GREWAL : 1940 Requested By: Order Number: [id number] Reading MD: Sung Curran Measurements Intervals Zoe Rate: 58 P: 33 OK: 150 QRS: -15 QRSD: 104 T: 24 QT: 426 QTc: 418 Interpretive Statements Sinus bradycardia with occasional premature ventricular complexes Moderate voltage criteria for LVH, may be normal variant ( R in aVL , Leota product ) Nonspecific ST abnormality Electronically Signed On 08-28-2024 17:38:16 PDT by Sung Curran
[2024-08-26] MEDS: LACTATED RINGERS 1,000 ML 42 ML IV ×2 (11:20→13:56)
[2024-08-26] MEDS: ACETAMINOPHEN 325 MG TABLET 650 MG PO (11:20)
--- NOTE | 2024-08-26 12:48 | P.HP_ITS ---
History of Present Illness History of Present Illness Date Patient Seen: 08/26/24 Chief complaint: Right ureteral stone management Narrative: 84 y/o F w/ extensive h/o nephrolithiasis who returns to OR for surgical management of her right ureteral stone. Briefly, she presented to ER on 28 Jun 2024 for evaluation of severe right flank pain w/ dysuria, nausea and vomiting. This was notable for a WBC of 9, sCr of 1.07, a UA consistent w/ a urinary tract infection and a CT Abd/Pel that demonstrated a few distal right ureteral stones resulting in upstream moderate to severe hydroureteronephrosis and a delayed right nephrogram w/ a few additional right non-obstructing nephroliths (large right lower pole calculus). She is now s/p a cystoscopy w/ right ureteral stent placement on 28 Jun 2024 as well as a cystoscopy with right ureteroscopy, laser lithotripsy and right ureteral stent exchange on 12 Jul 2024. Unfortunately, her aforementioned right lower pole calculus was noted to be very large and after lasering for more than 60 minutes, visibility became very poor and the decision was made to exchange her ureteral stent and return for a second look right ureteroscopy w/ laser lithotripsy and right ureteral stent exchange. She returns today for a second look right ureteroscopy with laser lithotripsy. [facility] Medical History Hx: UTI (urinary tract infection) Dinesh ulcer Iliotibial band syndrome, right leg Primary osteoarthritis involving multiple joints Right hip pain Age-related osteoporosis without current pathological fracture Do not resuscitate Corneal epithelial dystrophy of right eye Mixed hyperlipidemia Essential hypertension Gait instability Hiatal hernia without gangrene and obstruction Anemia due to chronic blood loss History of melanoma Mitral valve prolapse Restless leg syndrome Stenosis, cervical spine Osteopenia Measles Chicken pox Hearing loss Cataracts, bilateral Partial blindness Fibroids History of urinary incontinence Kidney stones Colon polyps Aortic stenosis Melanoma Left supraspinatus tendinitis GERD without esophagitis Hiatal hernia Hypothyroidism Mitral regurgitation History of optic neuritis Osteoporosis Iron (Fe) deficiency anemia Incontinence of urine Heart murmur Multiple sclerosis Surgical History S/P cystoscopy with ureteral stent placement (07/12/24) S/P total right hip arthroplasty S/P cystoscopy with ureteral stent placement (06/28/24) Anesthesia Family History Mother Stroke Social History details: (Abbe - 05/10/2023), grown children, retired household members: none Smoking Status: Never smoker alcohol intake: current Meds Home Medications and Allergies Home Medications Medication Instructions Recorded Confirmed Type ascorbic acid (vitamin C) 500 mg 500 mg PO DAILY 09/03/18 07/23/24 History capsule,extended release (Vitamin C) cholecalciferol (vitamin D3) 25 1,000 unit PO DAILY 09/03/18 07/23/24 History mcg (1,000 unit) tablet (Vitamin D3) coenzyme Q10 100 mg capsule 100 mg PO DAILY 09/03/18 07/23/24 History (CoQ-10) ferrous sulfate 325 mg (65 mg 325 mg PO QTUTHSA 09/03/18 08/26/24 History iron) tablet (Iron (ferrous sulfate)) prasterone (dhea) 25 mg capsule 10 mg PO DAILY 09/03/18 07/23/24 History (DHEA) selenium 100 mcg tablet 100 mcg PO DAILY 09/03/18 07/23/24 History thyroid (pork) 15 mg tablet 16.25 mg PO DAILY 09/03/18 07/23/24 History ([place] Thyroid) prednisolone acetate 1 % eye 1 drp ophthalmic (eye) BID 01/20/22 07/23/24 History drops,suspension progesterone micronized 200 mg 200 mg PO ONCE PM 02/08/23 07/23/24 History capsule estradiol 0.01% (0.1 mg/gram) 1 applic vaginal DAILY 03/20/24 07/23/24 History vaginal cream pantoprazole 40 mg tablet,delayed 40 mg PO DAILY #90 tabs 03/20/24 07/23/24 Rx release rosuvastatin 10 mg tablet 10 mg PO DAILY #90 tabs 03/20/24 07/23/24 Rx chloroquine phosphate 250 mg tablet 250 mg PO DAILY 07/05/24 07/23/24 History chromium picolinate 200 mcg tablet 200 mcg PO DAILY 07/05/24 07/23/24 History glucosamine HCl 1,500 mg tablet 1,500 mg PO DAILY 07/05/24 07/23/24 History herbal complex no.239 (Whole Body cap PO 07/05/24 07/23/24 History Joint Support capsule) magnesium citrate,mag oxide 250 mg mg PO 07/05/24 07/23/24 History capsule melatonin 1 mg tablet 1 mg PO BEDTIME PRN Insomnia 07/05/24 07/23/24 History omega 3 850 xi-alh-gqy-fish oil cap PO 07/05/24 07/23/24 History 1,400 mg capsule testosterone 1 % (25 mg/2.5 gram) 1 packet transdermal DAILY 07/05/24 07/23/24 History transdermal gel packet tirzepatide (weight loss) 2.5 2.5 mg SUBCUT QWEEK 07/05/24 08/26/24 History mg/0.5 mL subcutaneous pen injector turmeric root extract 538 mg 538 mg PO DAILY 07/05/24 07/23/24 History capsule vitamin K2 100 mcg capsule 500 mcg PO DAILY 07/05/24 07/23/24 History levofloxacin 500 mg tablet 500 mg PO DAILY #5 tabs 08/12/24 08/26/24 Rx tamsulosin 0.4 mg capsule 0.4 mg PO DAILY #20 caps 08/12/24 08/26/24 Rx amlodipine 5 mg tablet 5 mg PO DAILY 08/26/24 08/26/24 History nitrofurantoin 1 cap PO Q12H 08/26/24 08/26/24 History monohydrate/macrocrystals 100 mg capsule Allergies Allergy/AdvReac Type Severity Reaction Status Date / Time scallops Allergy Severe Anaphylaxis Verified 07/23/24 15:18 codeine Allergy Unknown UNK BY PT Verified 07/23/24 15:18 Penicillins Allergy Unknown UNK BY PT Verified 07/23/24 15:18 Cseicej-TUN-XqR Reductase Allergy Unknown UNK BY PT Verified 07/23/24 15:18 Inhibitor [Djzxswu-Mwj-Gry Reductase Inhibitor] Sulfa (Sulfonamide Allergy Unknown UNK BY PT Verified 07/23/24 15:18 Antibiotics) UNKNOWN ANTIBIOTIC Allergy Unknown Uncoded 07/23/24 15:18 Review of Systems Review of Systems Narrative: CONSTITUTIONAL: Denies weight loss, fevers, chills. HEENT: Denies change in vision, hearing. RESP: Denies SOB, cough. CV: Denies palpations, CP. GI: Denies abdominal pain, nausea, vomiting, diarrhea. : Denies dysuria, hematuria, inability to void. MSK: Denies myalgia, joint pain. SKIN: Denies rash, pruritus. NEURO: Denies headache, syncope. PSYCH: Denies recent change in mood, anxiety, depression. Exam Vital Signs (past 8 hours): - 08/26/24 11:37 Temperature 98.2 F Pulse Rate 59 L Respiratory Rate 16 Blood Pressure 151/80 H Pulse Oximetry 99 Oxygen Delivery Method Room Air Oxygen Delivery Method Room Air Narrative Exam Narrative: GEN: Alert and oriented X3. No acute distress. Well-nourished. EYES: PERRLA, EOMI. HENT: Moist mucus membranes, no scleral icterus, normal neck ROM. RESP: Unlabored breathing, equal rise and fall of chest bilaterally, no cyanosis appreciated. CV: No peripheral edema, unremarkable heart rate. ABD: Soft, non-tender, non-distended, no palpable masses. EXT: No edema, clubbing or cyanosis. SKIN: No rashes or lesions. NEURO: No focal neurologic deficits, CN II-XII grossly intact. PSYCH: Cooperative, appropriate mood and affect. Assessment & Plan Assessment and plan (1) Right ureteral calculus: Status: Acute Plan: 84 y/o F noted to have a few small distal right ureteroliths resulting in upstream moderate to severe right hydroureteronephrosis in the setting of a urinary tract infection and a few additional right non-obstructing nephroliths (large right lower pole calculus) s/p a cystoscopy w/ right ureteral stent placement on 28 Jun 2024 as well as a right ureteroscopy w/ laser lithotripsy and right ureteral stent exchange on 12 Jul 2024. Discussed that after lasering for more than 60 minutes, visibility became very poor secondary to her very large right lower pole calculus and the decision was made to repeat her ureteroscopy to render her stone free. Discussed the need for a second look right ureteroscopy, laser lithotripsy and right ureteral stent exchange. Discussed risks of the procedure to include pain, bleeding, infection, injury to urethra/bladder/ureter, inability to access the ureter requiring discussion with Interventional Radiology regarding a possible ureteral stent placement in an antegrade fashion vs a possible nephroureteral stent and/or percutaneous nephrostomy tube, urinary tract infection, inability to remove all of the stone in one setting, need for emergent open repair of bladder and/or ureter, need for multiple ureteroscopic interventions necessary to render the patient stone free. Informed consent was obtained today. Of note, she has been taking antibiotics for a few days now and will continue for the next few days as well. Time-Based Coding :: [TOTAL MINUTES] spent with patient and on the chart (including review of chart, obtaining history, exam, reviewing outside data, placing orders, documenting exam and treatment plan, and counseling patient) on [DATE]. PROFEE Room Service Waiter/Waitress Document charge(s): Yes Charge Codes Initial inpatient/observation care: 00667
[2024-08-26] MEDS: levoFLOXacin 500 MG/100 ML PIGGYBACK 100 MG IV (13:26)
--- NOTE | 2024-08-26 13:42 | SUR.OPER ---
Supine on padded OR bed, head on pillow, arms secured on padded arm boards at <90 degrees abduction, legs uncrossed, safety belt at thigh, tape over blanket over lower legs.
[2024-08-26] MEDS: iopamidoL 30 ML VIAL INJ (13:57)
--- NOTE | 2024-08-26 14:39 | PM.OP.1 ---
Operative Date/Time/Diagnoses Date of procedure: 08/26/24 Pre-op diagnosis: Right ureteral stone Post-op diagnosis: same Procedure & Clinicians Procedure: Cystoscopy Right retrograde ureteropyelogram Right ureteroscopy, laser lithotripsy Right ureteral stent exchange Intraoperative interpretation of fluoroscopic images, total time < 1 hour Same procedure as scheduled: Yes Indications: 84 y/o F noted to have a few small distal right ureteroliths resulting in upstream moderate to severe right hydroureteronephrosis in the setting of a urinary tract infection and a few additional right non-obstructing nephroliths (large right lower pole calculus) s/p a cystoscopy w/ right ureteral stent placement on 28 Jun 2024 as well as a right ureteroscopy w/ laser lithotripsy and right ureteral stent exchange on 12 Jul 2024. Discussed that after lasering for more than 60 minutes, visibility became very poor secondary to her very large right lower pole calculus and she is in need of a second look right ureteroscopy. Surgeon: Eric Serrano Click Yes if Unassisted: Yes Anesthesia Type: General Operative Notes Findings: Large right lower pole calculus Closure Type: not applicable Specimen(s): none sent Estimated Blood Loss (mL): 2 Blood products transfused: none Procedure in detail: Procedures: 1) Cystoscopy 2) Right retrograde ureteropyelogram 3) Right ureteroscopy, laser lithotripsy 4) Right ureteral stent exchange 5) Intraoperative interpretation of fluoroscopic images, < 1 hour, all images saved to PACS Indication: Patient was identified in the preoperative holding area and consent confirmed. She was then brought to the operating room where general anesthesia was induced.? She was placed in the low lithotomy position. She was then prepped and draped in the usual sterile fashion. A surgical timeout was conducted and all were in agreement. ?Access to the bladder was obtained via a 30 degree cystoscope.? Complete cystoscopy was then performed and no concerning bladder masses or lesions were appreciated.? Bilateral ureteral orifices were easily identified and noted to be orthotopic in nature.? The previously placed right ureteral stent was easily visualized and externalized using the stent grasper.? A 0.035 sensor tip ureteral guidewire was advanced through the stent and into the right renal pelvis.? A 12/14Fr ureteral access sheath was then advanced over the ureteral guidewire and into the proximal right ureter.? The ureteral guidewire and inner obturator were then removed.? The flexible ureteroscope was then advanced through the ureteral access sheath and into the right renal collecting system.? Complete pyeloscopy was then performed and a large calculus was noted to be within the right lower pole calyx (this stone was noted to be very difficult to access and at a very steep angle, therefore, laser lithotripsy was unable to be performed for more than a few seconds at a time). Attempts to reposition the stone were also unsuccessful secondary to its large size and the fact it was behind a somewhat stenosed infundibulum. Therefore, the decision was made to leave the stone in place. A retrograde pyelogram was then performed which noted no contrast extravasation.? The ureteral guidewire was then readvanced through the ureteroscope and into the right renal pelvis.? The ureter was then directly visualized upon removal of the ureteroscope and ureteral access sheath and noted to be stone free.? The cystoscope was then backloaded over the ureteral guidewire and advanced into the bladder.? A 6Fr multi-length JJ ureteral stent with strings was then advanced over the ureteral guidewire.? Upon removal of the guidewire, a good curl was noted within the right renal pelvis upon fluoroscopy and visually within the bladder.? The bladder was then drained and the cystoscope was removed.? Anesthesia was reversed, she was extubated in the OR and transferred to the PACU in stable condition for recovery. Complications: none Post-operative Condition: stable Disposition: PACU Plan for aftercare: Discharge home from PACU. Will return to Urology clinic in 3 months for a RBUS review.
[2024-08-26] MEDS: OXYCODONE IR 5 MG TABLET PO (15:36)
== END 2024-08-26 16:23 | disposition home or self-care (01) ==
PROVIDERS: PCP Internal Medicine; Referring Provider Urology; Visit Provider Urology
PROC: 0TF68ZZ Fragmentation in Right Ureter, Via Natural or Artificial Opening Endoscopic (ICD-10-PCS; CPT 52353; principal; 2024-08-26 12:15)
DX: N20.1 Calculus of ureter (principal); I10 Essential (primary) hypertension
CPT/HCPCS: 52356; 74018; 74420; 76000; 82962; 93005; C2617; J1100; J1885; J1956; J2405; J2704; J3010; Q9967

== ENCOUNTER → 2024-09-11 10:41 | Outpatient (CLI) | payer MEDICARE, SELFPAY ==
[2024-06-28 11:21] VITALS: BMI 25.4
--- NOTE | 2024-09-11 11:25 | DI.RAD.S_ITS ---
PROCEDURE: XR HIP W PEL IF DONE RT 2V INDICATIONS: HIP PAIN TECHNIQUE: AP pelvis and lateral view of the hip acquired. COMPARISON: [facility], CR, XR HIP W PEL IF DONE RT 2V, 12/27/2023, 14:00. FINDINGS: Bones: Patient is status post right hip arthroplasty, with hardware components in expected positions. The hip joint appears congruent. The visualized bony structures appear intact. Soft tissues: No suspicious soft tissue densities. IMPRESSION: No evidence of hardware complication or acute osseous abnormalities status post right hip arthroplasty. Dictated by: Adriel Mcbride M.D. on 09/12/2024 at 2:48 Approved by: Adriel Mcbride M.D. on 09/12/2024 at 2:49
== END ==
PROVIDERS: PCP Internal Medicine; Referring Provider Nurse Practitioner Family; Visit Provider Nurse Practitioner Family
DX: M25.551 Pain in right hip (principal); N20.1 Calculus of ureter; W19.XXXA Unspecified fall, initial encounter; Z96.641 Presence of right artificial hip joint
CPT/HCPCS: 73502

== ENCOUNTER 2024-09-16 21:09 | Observation (INO) | payer MEDICARE, SELFPAY ==
[2024-06-28 11:21] VITALS: BMI 25.4
[2024-09-16 21:27] VITALS: BP 130/60; PULSE 77; RESP 22; TEMP 36.7; O2SAT 96; BMI 22.6
[2024-09-16] MEDS: ONDANSETRON 4 MG/2 ML INJ IV (21:44)
[2024-09-16 21:47] LABS: Add Manual Diff / Slide Review NO; Basophils Absolute Auto 100 /uL (0-100); Basophils Percent Auto 0.6 % (0-2); Eosinophils Absolute Auto 100 /uL (0-450); Eosinophils Percent Auto 1.1 % (2-4); Hematocrit 39.6 % (36-46); Hemoglobin 13.3 g/dL (12.0-16.0); Lymphocytes Absolute Auto 1400 /uL (1100-4500); Lymphocytes Percent Auto 11.1 % (25-40); Mean Corpuscular HGB Conc 33.6 % (30-36); Mean Corpuscular Hemoglobin 30.4 PG (26-34); Mean Corpuscular Volume 90.4 fL (80-100); Monocytes Absolute Auto 600 /uL (0-900); Monocytes Percent Auto 4.3 % (3-14); Neutrophils Absolute Auto 10800 /uL (1500-7000); Neutrophils Percent Auto 82.9 % (50-75); Platelet Count 192 X10^3/uL (150-400); Red Blood Cell Count 4.39 X10^6/uL (4.0-5.2)
[2024-09-16 22:00] LABS: Alanine Aminotransferase 24 IU/L (<35); Albumin Globulin Ratio 1.3 (1.0-2.8); Alkaline Phosphatase 99 U/L (38-126); Aspartate Aminotransferase 35 IU/L (14-36); BUN Creatinine Ratio 24.3 (6-22); Bilirubin Total 0.5 mg/dL (0.2-1.3); Blood Urea Nitrogen 25 mg/dL (7-17); Calcium 9.6 mg/dL (8.4-10.2); Carbon Dioxide 26 mmol/L (22-32); Chloride 108 mmol/L (98-107); Estimated Glomerular Filt Rate 54 mL/min (>60); Glucose 154 mg/dL (70-99); HEMOLYSIS 35 (0-50); Lipase 174 U/L (23-300); Potassium 3.8 mmol/L (3.4-5.1); Sodium 141 mmol/L (137-145)
[2024-09-17] VITALS (8 sets, daily range): BP systolic 110–163; BP diastolic 55–74; PULSE 61–66; RESP 12–18; TEMP 36.4–36.6; O2SAT 94–99
--- NOTE | 2024-09-17 | DI.RAD.S_ITS ---
PROCEDURE: XR ABDOMEN 1V INDICATIONS: RIGHT STENT PLACEMENT TECHNIQUE: 2 intra-operative images acquired by the Urology service. COMPARISON: [facility], CR, XR ABDOMEN 1V, 08/26/2024, 14:26. FINDINGS: Right-sided ureteral stent with proximal tip position in the right renal pelvis and distal tip position in the urinary bladder. Injection of contrast material demonstrates dilated right renal calices and right renal pelvis which could be due to obstruction or over injection. IMPRESSION: Right-sided ureteral stent. Dictated by: Leslie Ambriz MD, PhD on 09/17/2024 at 11:22 Approved by: Leslie Ambriz MD, PhD on 09/17/2024 at 11:24
[2024-09-17 02:22] LABS: Appearance Urine UA CLOUDY; Bilirubin Urine UA NEGATIVE (NEGATIVE); Color Urine UA YELLOW; Glucose Urine UA NEGATIVE (Negative); Ketones Urine UA 1+ (NEGATIVE); Leukocyte Esterase Urine UA 1+ (NEGATIVE); Nitrite Urine UA NEGATIVE (Negative); Occult Blood Urine UA 1+ (Negative); Protein Urine UA 1+ (Negative); Specific Gravity Urine UA 1.015 (1.000-1.035); Urobilinogen Urine UA 0.2 E.U./dL (0.2)
[2024-09-17 02:28] LABS: Bacteria Urine Many (>30); Culture Indicated Urine Specimen Cultured; RBC Urine 1-5/HPF (0-5/HPF); Squamous Epithelial Cell Urine 1-5 /HPF (0-5/HPF); Urine Volume 10mL (spun); WBC Urine 5-10/HPF (0-5/HPF)
--- NOTE | 2024-09-17 03:06 | ED_ITS ---
HPI - Abdominal Pain <Milena DO Karrie - Last Filed: 09/17/24 22:19> General Chief Complaint: Abdominal Pain Stated Complaint: abd px Time Seen by Provider: 09/17/24 02:21 Source: patient Mode of arrival: Wheelchair History of Present Illness HPI narrative: Patient is a 84 year female history of ongoing nephrolithiasis with recent stent presents today with sudden onset of abdominal pain. Reports the road 5:00 p.m. she was pretty severe pain dropped her to her these. She threw up a handful of times radiating around to her abdomen. This since subsided. However she is followed by Dr. Serrano, she had right ureteral stent placed and exchange done 08/26/2024. She says she was doing well until today. Denies any kind of chest pain nausea or vomiting. Still having some mild pain. She reports that she remove the ureteral stent herself per Dr. Serrano. Related Data Home Medications Medication Instructions Recorded Confirmed ascorbic acid (vitamin C) 500 mg 500 mg PO DAILY 09/03/18 07/23/24 capsule,extended release (Vitamin C) cholecalciferol (vitamin D3) 25 1,000 unit PO DAILY 09/03/18 07/23/24 mcg (1,000 unit) tablet (Vitamin D3) coenzyme Q10 100 mg capsule 100 mg PO DAILY 09/03/18 07/23/24 (CoQ-10) ferrous sulfate 325 mg (65 mg 325 mg PO QTUTHSA 09/03/18 08/26/24 iron) tablet (Iron (ferrous sulfate)) prasterone (dhea) 25 mg capsule 10 mg PO DAILY 09/03/18 07/23/24 (DHEA) selenium 100 mcg tablet 100 mcg PO DAILY 09/03/18 07/23/24 thyroid (pork) 15 mg tablet 16.25 mg PO DAILY 09/03/18 07/23/24 ([place] Thyroid) prednisolone acetate 1 % eye 1 drp ophthalmic (eye) BID 01/20/22 07/23/24 drops,suspension progesterone micronized 200 mg 200 mg PO ONCE PM 02/08/23 07/23/24 capsule estradiol 0.01% (0.1 mg/gram) 1 applic vaginal DAILY 03/20/24 07/23/24 vaginal cream chloroquine phosphate 250 mg tablet 250 mg PO DAILY 07/05/24 07/23/24 chromium picolinate 200 mcg tablet 200 mcg PO DAILY 07/05/24 07/23/24 glucosamine HCl 1,500 mg tablet 1,500 mg PO DAILY 07/05/24 07/23/24 herbal complex no.239 (Whole Body cap PO 07/05/24 07/23/24 Joint Support capsule) magnesium citrate,mag oxide 250 mg mg PO 07/05/24 07/23/24 capsule melatonin 1 mg tablet 1 mg PO BEDTIME PRN Insomnia 07/05/24 07/23/24 omega 3 850 fy-dvb-tho-fish oil cap PO 07/05/24 07/23/24 1,400 mg capsule testosterone 1 % (25 mg/2.5 gram) 1 packet transdermal DAILY 07/05/24 09/17/24 transdermal gel packet tirzepatide (weight loss) 2.5 2.5 mg SUBCUT QWEEK 07/05/24 09/17/24 mg/0.5 mL subcutaneous pen injector turmeric root extract 538 mg 538 mg PO DAILY 07/05/24 07/23/24 capsule vitamin K2 100 mcg capsule 500 mcg PO DAILY 07/05/24 07/23/24 amlodipine 5 mg tablet 5 mg PO DAILY 08/26/24 09/17/24 nitrofurantoin 1 cap PO Q12H 08/26/24 08/26/24 monohydrate/macrocrystals 100 mg capsule Previous Rx's Medication Instructions Recorded pantoprazole 40 mg tablet,delayed 40 mg PO DAILY #90 tabs 03/20/24 release rosuvastatin 10 mg tablet 10 mg PO DAILY #90 tabs 03/20/24 oxycodone 5 mg tablet 5 mg PO Q8H PRN pain (scale score 08/26/24 7-10) #7 tabs levofloxacin 500 mg tablet 500 mg PO DAILY #3 tabs 09/03/24 tamsulosin 0.4 mg capsule 0.4 mg PO DAILY #30 caps 09/12/24 levofloxacin 500 mg tablet 500 mg PO DAILY #6 tabs 09/17/24 tamsulosin 0.4 mg capsule 0.4 mg PO DAILY #30 caps 09/17/24 tramadol 50 mg tablet 50 mg PO Q8H PRN pain (scale score 09/17/24 7-10) #7 tabs Allergies Allergy/AdvReac Type Severity Reaction Status Date / Time scallops Allergy Severe Anaphylaxis Verified 07/23/24 15:18 codeine Allergy Unknown UNK BY PT Verified 07/23/24 15:18 Penicillins Allergy Unknown UNK BY PT Verified 07/23/24 15:18 Fvnzkvu-CZM-MtD Reductase Allergy Unknown UNK BY PT Verified 07/23/24 15:18 Inhibitor [Vvfotrz-Orm-Oaz Reductase Inhibitor] Sulfa (Sulfonamide Allergy Unknown UNK BY PT Verified 07/23/24 15:18 Antibiotics) UNKNOWN ANTIBIOTIC Allergy Unknown Uncoded 07/23/24 15:18 Patient History <Milena Yoon DO - Last Filed: 09/17/24 22:19> Medical History Hx: UTI (urinary tract infection) Dinesh ulcer Iliotibial band syndrome, right leg Primary osteoarthritis involving multiple joints Right hip pain Age-related osteoporosis without current pathological fracture Do not resuscitate Corneal epithelial dystrophy of right eye Mixed hyperlipidemia Essential hypertension Gait instability Hiatal hernia without gangrene and obstruction Anemia due to chronic blood loss History of melanoma Mitral valve prolapse Restless leg syndrome Stenosis, cervical spine Osteopenia Measles Chicken pox Hearing loss Cataracts, bilateral Partial blindness Fibroids History of urinary incontinence Kidney stones Colon polyps Aortic stenosis Melanoma Left supraspinatus tendinitis GERD without esophagitis Hiatal hernia Hypothyroidism Mitral regurgitation History of optic neuritis Osteoporosis Iron (Fe) deficiency anemia Incontinence of urine Heart murmur Multiple sclerosis Surgical History S/P cystoscopy with ureteral stent placement (07/12/24) S/P total right hip arthroplasty S/P cystoscopy with ureteral stent placement (06/28/24) Anesthesia Family History Mother Stroke Social History details: (Abbe - 05/10/2023), grown children, retired household members: none Smoking Status: Never smoker alcohol intake: current Smoking Status: Never smoker alcohol intake frequency: holidays/special occasions only Exam <Milena Yoon DO - Last Filed: 09/17/24 22:19> Initial Vital Signs Initial Vital Signs: Vital Signs Temperature 98.1 F 09/16/24 21:27 Pulse Rate 77 09/16/24 21:27 Respiratory Rate 22 09/16/24 21:27 Blood Pressure 130/60 09/16/24 21:27 Pulse Oximetry 96 09/16/24 21:27 Oxygen Delivery Method Room Air 09/16/24 21:27 GENERAL: Alert pleasant well-appearing 84-year-old female and in [no acute] distress. HEENT: Head atraumatic,EOMI, pupils reactive, face symmetric, [moist] mucous membranes CARDIOVASCULAR: Regular rate and rhythm without murmurs, rubs or gallops. RESPIRATORY: Breath sounds equal bilaterally, no wheezes rales or rhonchi. ABDOMEN: Soft, nontender. Normoactive bowel sounds all 4 quadrants. No guarding or rebound. : No CVA tenderness EXTREMITIES: Normal range of motion, no clubbing or edema. Neurovascularly intact NEUROLOGICAL: Alert and oriented x4.Normal gait and speech. Cranial nerves II through XII grossly intact. SKIN: Warm, dry, no laceration, no petechiae, no rashes or lesions. <Marcie Bradshaw, DO - Last Filed: 09/17/24 15:30> Initial Vital Signs Initial Vital Signs: Vital Signs Temperature 98.1 F 09/16/24 21:27 Pulse Rate 77 09/16/24 21:27 Respiratory Rate 22 09/16/24 21:27 Blood Pressure 130/60 09/16/24 21:27 Pulse Oximetry 96 09/16/24 21:27 Oxygen Delivery Method Room Air 09/16/24 21:27 Course <Milena Yoon, DO - Last Filed: 09/17/24 22:19> Orders Ordered: Discontinued Medications Acetaminophen (Acetaminophen 325 Mg Tablet) 975 mg PO Q6H PRN PRN Reason: Pain, Mild (1-3) Hydromorphone HCl (Hydromorphone 1 Mg Inj) 0.5 mg IV Q2H PRN PRN Reason: Pain, Severe (7-10) Ceftriaxone Sodium 1,000 mg/ (Sodium Chloride) 100 mls @ 200 mls/hr IV NOW ONE Stop: 09/17/24 06:17 Last Infusion: 09/17/24 07:55 Dose: Infused Documented By: Admin: 09/17/24 06:59 Dose: 200 mls/hr Documented By: BALDEV Sodium Chloride (Normal Saline 0.9%) 1,000 mls @ 150 mls/hr IV CONT ISABELLA Last Infusion: 09/17/24 11:03 Dose: Infused Documented By: Admin: 09/17/24 07:59 Dose: 150 mls/hr Documented By: RUKHSANA Levofloxacin (Levaquin) 500 mg in 100 mls @ 100 mls/hr IV NOW ONE Stop: 09/17/24 10:17 Last Infusion: 09/17/24 09:55 Dose: Infused Documented By: Admin: 09/17/24 09:41 Dose: 100 mls/hr Documented By: ASHLEE Ketorolac Tromethamine (Ketorolac 30 Mg/Ml Vial) 15 mg IV NOW ONE Stop: 09/17/24 03:41 Last Admin: 09/17/24 04:16 Dose: 15 mg Documented By: BALDEV Ondansetron HCl (Ondansetron 4 Mg/2 Ml Inj) 4 mg IV NOW PRN PRN Reason: Nausea And Vomiting Last Admin: 09/16/24 21:44 Dose: 4 mg Documented By: MARIAM Ondansetron HCl (Ondansetron 4 Mg Odt) 4 mg PO NOW PRN PRN Reason: Nausea And Vomiting Ondansetron HCl (Ondansetron 4 Mg/2 Ml Inj) 4 mg IV Q4H PRN PRN Reason: Nausea And Vomiting Oxycodone HCl (Oxycodone Ir 5 Mg Tablet) 5 mg PO Q4H PRN PRN Reason: Pain, Moderate (4-6) Vital Signs Vital signs: Vital Signs - 8 hr 09/17/24 02:13 09/17/24 02:13 09/17/24 02:30 Pulse Rate 66 64 Blood Pressure 158/68 H Pulse Oximetry 98 94 <Marcie Bradshaw, - Last Filed: 09/17/24 15:30> Orders Ordered: Discontinued Medications Acetaminophen (Acetaminophen 325 Mg Tablet) 975 mg PO Q6H PRN PRN Reason: Pain, Mild (1-3) Hydromorphone HCl (Hydromorphone 1 Mg Inj) 0.5 mg IV Q2H PRN PRN Reason: Pain, Severe (7-10) Ceftriaxone Sodium 1,000 mg/ (Sodium Chloride) 100 mls @ 200 mls/hr IV NOW ONE Stop: 09/17/24 06:17 Last Infusion: 09/17/24 07:55 Dose: Infused Documented By: Admin: 09/17/24 06:59 Dose: 200 mls/hr Documented By: BALDEV Sodium Chloride (Normal Saline 0.9%) 1,000 mls @ 150 mls/hr IV CONT ISABELLA Last Infusion: 09/17/24 11:03 Dose: Infused Documented By: Admin: 09/17/24 07:59 Dose: 150 mls/hr Documented By: RUKHSANA Levofloxacin (Levaquin) 500 mg in 100 mls @ 100 mls/hr IV NOW ONE Stop: 09/17/24 10:17 Last Infusion: 09/17/24 09:55 Dose: Infused Documented By: Admin: 09/17/24 09:41 Dose: 100 mls/hr Documented By: ASHLEE Ketorolac Tromethamine (Ketorolac 30 Mg/Ml Vial) 15 mg IV NOW ONE Stop: 09/17/24 03:41 Last Admin: 09/17/24 04:16 Dose: 15 mg Documented By: BALDEV Ondansetron HCl (Ondansetron 4 Mg/2 Ml Inj) 4 mg IV NOW PRN PRN Reason: Nausea And Vomiting Last Admin: 09/16/24 21:44 Dose: 4 mg Documented By: MARIAM Ondansetron HCl (Ondansetron 4 Mg Odt) 4 mg PO NOW PRN PRN Reason: Nausea And Vomiting Ondansetron HCl (Ondansetron 4 Mg/2 Ml Inj) 4 mg IV Q4H PRN PRN Reason: Nausea And Vomiting Oxycodone HCl (Oxycodone Ir 5 Mg Tablet) 5 mg PO Q4H PRN PRN Reason: Pain, Moderate (4-6) Vital Signs Vital signs: Vital Signs - 8 hr 09/17/24 02:13 09/17/24 02:13 09/17/24 02:30 Pulse Rate 66 64 Blood Pressure 158/68 H Pulse Oximetry 98 94 MDM - Abdominal Pain <Milena Yoon DO - Last Filed: 09/17/24 22:19> Lab Data 09/16/24 21:36 09/16/24 21:36 Labs: Lab Results 09/16/24 09/17/24 Range/Units 21:36 02:13 WBC 13.0 H (4.5-11.0) X10^3/uL RBC 4.39 (4.0-5.2) X10^6/uL Hgb 13.3 (12.0-16.0) g/dL Hct 39.6 (36-46) % MCV 90.4 (80-100) fL MCH 30.4 (26-34) PG MCHC 33.6 (30-36) % RDW 14.0 (11.6-14.8) % Plt Count 192 (150-400) X10^3/uL Neut % (Auto) 82.9 H (50-75) % Lymph % (Auto) 11.1 L (25-40) % [place] % (Auto) 4.3 (3-14) % Eos % (Auto) 1.1 L (2-4) % Baso % (Auto) 0.6 (0-2) % Neut # (Auto) 83251 H (1630-7959) /uL Lymph # (Auto) 1400 (4834-4895) /uL [place] # (Auto) 600 (0-900) /uL Eos # (Auto) 100 (0-450) /uL Baso # (Auto) 100 (0-100) /uL Sodium 141 (137-145) mmol/L Potassium 3.8 (3.4-5.1) mmol/L Chloride 108 H (98-107) mmol/L Carbon Dioxide 26 (22-32) mmol/L BUN 25 H (7-17) mg/dL Creatinine 1.03 (0.52-1.04) mg/dL Estimated GFR 54 L (>60) mL/min BUN/Creatinine Ratio 24.3 H (6-22) Glucose 154 H (70-99) mg/dL Calcium 9.6 (8.4-10.2) mg/dL Total Bilirubin 0.5 (0.2-1.3) mg/dL AST 35 (14-36) IU/L ALT 24 (<35) IU/L Alkaline Phosphatase 99 (38-126) U/L Total Protein 7.0 (6.3-8.2) g/dL Albumin 4.0 (3.5-5.0) g/dL Globulin 3.0 (1.7-4.1) g/dL Albumin/Globulin Ratio 1.3 (1.0-2.8) Lipase 174 (23-300) U/L Urine Color Yellow Urine Appearance Cloudy Urine pH 7.0 (4.5-8.0) Ur Specific [place] 1.015 (1.000-1.035) Urine Protein 1+ H (Negative) Urine Glucose (UA) Negative (Negative) g/dL Urine Ketones 1+ H (NEGATIVE) Urine Occult Blood 1+ H (Negative) Urine Nitrate Negative (Negative) Urine Bilirubin Negative (NEGATIVE) Urine Urobilinogen 0.2 (0.2) E.U./dL Ur Leukocyte Esterase 1+ H (NEGATIVE) Urine RBC 1-5/hpf D (0-5/HPF) Urine WBC 5-10/hpf H (0-5/HPF) Ur Squamous Epith Cells 1-5 /hpf (0-5/HPF) Urine Bacteria Many (>30) H (None) Ur Culture Indicated? Specimen cultured Vol Urine Centrifuged 10ml (spun) Imaging Data CT scan - abdomen/pelvis: Radiologist's Impression: Preliminary report: Obstructing right mid ureteral calculus measuring 10 mm in left collecting system calculus measuring 1.9 cm with bilateral hydro nephrosis MDM Narrative Medical decision making narrative: [facility] [place] CC: Back pain Complicating co-morbidities: Recent right ureteral stent for nephrolithiasis Corroborating data: [ ] Data collected from: Patient Medical records reviewed: H and P from 08/26/2024 had a ureteral stent exchange July 12 Differential considered: Nephrolithiasis pyelonephritis bowel obstruction Exam documented above, pertinent findings include: Alert well-appearing 84-year-old female no significant flank pain abdomen is soft tender Lab Test results independently reviewed as above. Pertinent findings: WBC 13 no anemia Electrolytes within normal limits creatinine 1.0 which is stable Normal bilirubin and liver Imaging studies independently reviewed: CT abdomen shows obstructing right mid ureteral calculus measuring 10 mm and central left collecting system calculus measuring 1.9 cm with bilateral hydronephrosis. Consultations: 605 Dr. Rodriguez urology updated patient's symptoms test results familiar with the patient. He was on his way into the ED Treatments: Rocephin Re-evaluations: Patient not requiring anything for pain Discussion: Patient is an 84-year-old female history of nephrolithiasis presenting today with acute pain nausea vomiting. She was found to have a 10 mm right ureteral stone. No FREDI. She was mild leukocytosis of 13 with WBCs and leukocytes in her urine. No evidence of sepsis vitals are stable. She was given 1 dose of Rocephin here in the ED. Urology has been consulted he was on his way in and will likely stent her today again. Keeping NPO. Patient signed out to Dr. Bradshaw <Marcie Alexy Bradshaw, DO - Last Filed: 09/17/24 15:30> Lab Data Labs: Lab Results 09/16/24 09/17/24 Range/Units 21:36 02:13 WBC 13.0 H (4.5-11.0) X10^3/uL RBC 4.39 (4.0-5.2) X10^6/uL Hgb 13.3 (12.0-16.0) g/dL Hct 39.6 (36-46) % MCV 90.4 (80-100) fL MCH 30.4 (26-34) PG MCHC 33.6 (30-36) % RDW 14.0 (11.6-14.8) % Plt Count 192 (150-400) X10^3/uL Neut % (Auto) 82.9 H (50-75) % Lymph % (Auto) 11.1 L (25-40) % [place] % (Auto) 4.3 (3-14) % Eos % (Auto) 1.1 L (2-4) % Baso % (Auto) 0.6 (0-2) % Neut # (Auto) 80631 H (6863-3148) /uL Lymph # (Auto) 1400 (3521-7222) /uL [place] # (Auto) 600 (0-900) /uL Eos # (Auto) 100 (0-450) /uL Baso # (Auto) 100 (0-100) /uL Sodium 141 (137-145) mmol/L Potassium 3.8 (3.4-5.1) mmol/L Chloride 108 H (98-107) mmol/L Carbon Dioxide 26 (22-32) mmol/L BUN 25 H (7-17) mg/dL Creatinine 1.03 (0.52-1.04) mg/dL Estimated GFR 54 L (>60) mL/min BUN/Creatinine Ratio 24.3 H (6-22) Glucose 154 H (70-99) mg/dL Calcium 9.6 (8.4-10.2) mg/dL Total Bilirubin 0.5 (0.2-1.3) mg/dL AST 35 (14-36) IU/L ALT 24 (<35) IU/L Alkaline Phosphatase 99 (38-126) U/L Total Protein 7.0 (6.3-8.2) g/dL Albumin 4.0 (3.5-5.0) g/dL Globulin 3.0 (1.7-4.1) g/dL Albumin/Globulin Ratio 1.3 (1.0-2.8) Lipase 174 (23-300) U/L Urine Color Yellow Urine Appearance Cloudy Urine pH 7.0 (4.5-8.0) Ur Specific [place] 1.015 (1.000-1.035) Urine Protein 1+ H (Negative) Urine Glucose (UA) Negative (Negative) g/dL Urine Ketones 1+ H (NEGATIVE) Urine Occult Blood 1+ H (Negative) Urine Nitrate Negative (Negative) Urine Bilirubin Negative (NEGATIVE) Urine Urobilinogen 0.2 (0.2) E.U./dL Ur Leukocyte Esterase 1+ H (NEGATIVE) Urine RBC 1-5/hpf D (0-5/HPF) Urine WBC 5-10/hpf H (0-5/HPF) Ur Squamous Epith Cells 1-5 /hpf (0-5/HPF) Urine Bacteria Many (>30) H (None) Ur Culture Indicated? Specimen cultured Vol Urine Centrifuged 10ml (spun) MDM Narrative Medical decision making narrative: MDM CC: Back pain Complicating co-morbidities: Recent right ureteral stent for nephrolithiasis Corroborating data: [ ] Data collected from: Patient Medical records reviewed: H and P from 08/26/2024 had a ureteral stent exchange July 12 Differential considered: Nephrolithiasis pyelonephritis bowel obstruction Exam documented above, pertinent findings include: Alert well-appearing 84-year-old female no significant flank pain abdomen is soft tender Lab Test results independently reviewed as above. Pertinent findings: WBC 13 no anemia Electrolytes within normal limits creatinine 1.0 which is stable Normal bilirubin and liver Imaging studies independently reviewed: CT abdomen shows obstructing right mid ureteral calculus measuring 10 mm and central left collecting system calculus measuring 1.9 cm with bilateral hydronephrosis. Consultations: 605 Dr. Rodriguez urology updated patient's symptoms test results familiar with the patient. He was on his way into the ED Treatments: Rocephin Re-evaluations: Patient not requiring anything for pain Discussion: Patient is an 84-year-old female history of nephrolithiasis presenting today with acute pain nausea vomiting. She was found to have a 10 mm right ureteral stone. No FREDI. She was mild leukocytosis of 13 with WBCs and leukocytes in her urine. No evidence of sepsis vitals are stable. She was given 1 dose of Rocephin here in the ED. Urology has been consulted he was on his way in and will likely stent her today again. Keeping NPO. Patient signed out to Dr. Bradshaw 09/17/[id number] Bradshaw: Patient's signed out to myself by Dr. Yoon. Patient found to have 10 mm right ureteral stone has had recent lithotripsy and ureteral strength which was removed patient not septic does have a white count of 13, leukocytes in urine received a dose of Rocephin. Patient states pain has resolved at this time. She denies any fevers overnight did have nausea or vomiting quite a bit of right-sided abdominal pain which has significantly improved after medication. States she was not due for any daily medications this morning. Urology has been contacted and Dr. Serrano in the room with the patient at this time. 0800 Dr. Serrano asked that we admit to medicine we will take likely late today to the OR. Patient was NPO. Spoke with the hospitalist Dr. Briggs at 0809 who accepts. Discussed plan from Dr. Serrano, all questions answered. Dr. Serrano called back downshortly afterwards and states he can take her to the OR shortly. Asked that we change her to send her surgery and plan for discharge home afterwards. Dr. Briggs was updated as well. Discharge Plan Departure Patient Disposition: Admitted to Surgery Clinical Impression: Calculus of right ureter Admit Date/Time: 09/17/24 08:16 Admit Provider: Venkata Briggs
--- NOTE | 2024-09-17 03:40 | DI.CT.S_ITS ---
PROCEDURE: CT ABDOMEN PELVIS W CON INDICATIONS: right sided kidney stones TECHNIQUE: After the administration of intravenous contrast, axial sections acquired from the lung bases to the pubic symphysis. Coronal and sagittal reformats were performed. For radiation dose reduction, the following was used: automated exposure control, adjustment of mA and/or kV according to patient size. COMPARISON: [facility], CT, CT ABDOMEN PELVIS W CON, 06/28/2024, 3:57. FINDINGS: Image quality: Diagnostic. Lower Chest: Bilateral lung bases are clear. Heart size is enlarged, no pericardial effusion. Large hiatal hernia is seen. ABDOMEN: Liver: No solid mass. Large simple appearing cyst occupying left lobe of liver not significantly changed in size and appearance from previous study. Gallbladder: Calcified stones are seen in dependent portion of gallbladder lumen without gallbladder wall thickening. Biliary ducts: No biliary dilation. Pancreas: No ductal dilation. Spleen: Size is within normal limits. Adrenal Glands: No adrenal nodules. Kidneys and Ureters: There is severe right-sided hydronephrosis and hydroureter with 1 x 0.7 cm obstructing stone seen in right mid to distal ureter and measures 1160.8 Hounsfield unit in density series 2, image 103. At least partially obstructing stone is noted in left renal pelvis measures 1.4 cm in size and 1243 Hounsfield unit in density series 2, image 43. [id number] left-sided hydronephrosis and very mild proximal left hydroureter is noted. More distal left ureter is normal in size. No obstructing ureteral stone is seen on the left side. No solid mass. No complex renal cystic lesion which requires follow up. Stomach and Bowel: There is no bowel obstruction or abnormal bowel wall thickening. No mesenteric fat stranding. Colonic diverticulosis without CT evidence of acute diverticulitis. No abscess collection. Peritoneum: No abnormal intraperitoneal fluid. No free air. Ventral Wall: No significant ventral hernia. Abdominal Nodes: No retroperitoneal or mesenteric adenopathy by size criteria. Vessels: Aorta and inferior vena cava are normal in size. PELVIS: Pelvic Organs: Unremarkable. Bladder: No bladder wall thickening, accounting for underdistention. Pelvic Nodes: No enlarged lymph nodes. Miscellaneous: No inguinal hernias are seen. Bones: No aggressive osseous abnormality. IMPRESSION: 1. Moderate to severe right-sided hydronephrosis and proximal to mid hydroureter with 1 x 0.7 cm stone seen in right mid to distal ureter as above. 2. Lease partially obstructing 1.4 cm left renal pelvic stone with moderate left-sided hydronephrosis and very mild proximal left hydroureter. 3. Normal appearing urinary bladder. 4. No bowel obstruction or abnormal bowel wall thickening. Colonic diverticulosis without CT evidence of acute diverticulitis. No free fluid or free air. 5. Cholelithiasis without CT evidence of acute cholecystitis. 6. Other chronic findings not significantly changed from prior study. No discrepancies. Dictated by: Ajay Byrd M.D. on 09/17/2024 at 8:28 Approved by: Ajay Byrd M.D. on 09/17/2024 at 8:33
[2024-09-17] MEDS: KETOROLAC 30 MG/ML VIAL 15 MG IV (04:16)
[2024-09-17] MEDS: cefTRIAXone 1,000 MG in SODIUM CHLORIDE 0.9% 100 ML 200 MG IV (06:59)
[2024-09-17] MEDS: SODIUM CHLORIDE 0.9% 1,000 ML 150 ML IV (07:59)
--- NOTE | 2024-09-17 08:59 | PC.NURSE ---
Hx of kidney stones. Recent stent placed. Patient reports stent was removed by self per protocol. Worsening pain and vomiting.
--- NOTE | 2024-09-17 09:11 | P.CONS_ITS ---
History of Present Illness Consult details Date Patient Seen: 09/17/24 Time Patient Seen: 07:00 Chief complaint: right flank pain Reason for consult: Right ureteral stone Narrative: 84 y/o F w/ extensive h/o nephrolithiasis who returns to ER for evaluation of severe right flank pain with nausea and vomiting. Briefly, she presented to ER on 28 Jun 2024 for evaluation of severe right flank pain w/ dysuria, nausea and vomiting. This was notable for a WBC of 9, sCr of 1.07, a UA consistent w/ a urinary tract infection and a CT Abd/Pel that demonstrated a few distal right ureteral stones resulting in upstream moderate to severe hydroureteronephrosis and a delayed right nephrogram w/ a few additional right non-obstructing nephroliths (large right lower pole calculus). She is now s/p a cystoscopy w/ right ureteral stent placement on 28 Jun 2024 as well as a cystoscopy with right ureteroscopy, laser lithotripsy and right ureteral stent exchange on 12 Jul 2024. Unfortunately, her aforementioned right lower pole calculus was noted to be very large and after lasering for more than 60 minutes, visibility became very poor and the decision was made to exchange her ureteral stent and return for a second look right ureteroscopy w/ laser lithotripsy and right ureteral stent exchange. Her second look right ureteroscopy on 26 August 2024 was notable for a large right lower pole calculus that was very difficult to access and unable to be repositioned within her collecting system, therefore, it was left in place and a simple right ureteral stent exchange was performed despite multiple efforts to remove the stone via laser lithotripsy or basket stone extraction. On the evening of 16 Sep 2024, she developed severe right flank pain with nausea and vomiting. Her evaluation in the ER was notable for a WBC of 13, sCr of 1.03 and a questionably infected appearing UA. Her CT Abd/Pel was notable for migration of the aforementioned 1cm right lower pole calculus into her right distal ureter with resultant upstream moderate to severe hydroureteronephrosis. Meds Home Medications and Allergies Home Medications Medication Instructions Recorded Confirmed Type ascorbic acid (vitamin C) 500 mg 500 mg PO DAILY 09/03/18 07/23/24 History capsule,extended release (Vitamin C) cholecalciferol (vitamin D3) 25 1,000 unit PO DAILY 09/03/18 07/23/24 History mcg (1,000 unit) tablet (Vitamin D3) coenzyme Q10 100 mg capsule 100 mg PO DAILY 09/03/18 07/23/24 History (CoQ-10) ferrous sulfate 325 mg (65 mg 325 mg PO QTUTHSA 09/03/18 08/26/24 History iron) tablet (Iron (ferrous sulfate)) prasterone (dhea) 25 mg capsule 10 mg PO DAILY 09/03/18 07/23/24 History (DHEA) selenium 100 mcg tablet 100 mcg PO DAILY 09/03/18 07/23/24 History thyroid (pork) 15 mg tablet 16.25 mg PO DAILY 09/03/18 07/23/24 History (Hazard Thyroid) prednisolone acetate 1 % eye 1 drp ophthalmic (eye) BID 01/20/22 07/23/24 History drops,suspension progesterone micronized 200 mg 200 mg PO ONCE PM 02/08/23 07/23/24 History capsule estradiol 0.01% (0.1 mg/gram) 1 applic vaginal DAILY 03/20/24 07/23/24 History vaginal cream pantoprazole 40 mg tablet,delayed 40 mg PO DAILY #90 tabs 03/20/24 07/23/24 Rx release rosuvastatin 10 mg tablet 10 mg PO DAILY #90 tabs 03/20/24 07/23/24 Rx chloroquine phosphate 250 mg tablet 250 mg PO DAILY 07/05/24 07/23/24 History chromium picolinate 200 mcg tablet 200 mcg PO DAILY 07/05/24 07/23/24 History glucosamine HCl 1,500 mg tablet 1,500 mg PO DAILY 07/05/24 07/23/24 History herbal complex no.239 (Whole Body cap PO 07/05/24 07/23/24 History Joint Support capsule) magnesium citrate,mag oxide 250 mg mg PO 07/05/24 07/23/24 History capsule melatonin 1 mg tablet 1 mg PO BEDTIME PRN Insomnia 07/05/24 07/23/24 History omega 3 850 fm-tbg-tbe-fish oil cap PO 07/05/24 07/23/24 History 1,400 mg capsule testosterone 1 % (25 mg/2.5 gram) 1 packet transdermal DAILY 07/05/24 07/23/24 History transdermal gel packet tirzepatide (weight loss) 2.5 2.5 mg SUBCUT QWEEK 07/05/24 08/26/24 History mg/0.5 mL subcutaneous pen injector turmeric root extract 538 mg 538 mg PO DAILY 07/05/24 07/23/24 History capsule vitamin K2 100 mcg capsule 500 mcg PO DAILY 07/05/24 07/23/24 History amlodipine 5 mg tablet 5 mg PO DAILY 08/26/24 08/26/24 History nitrofurantoin 1 cap PO Q12H 08/26/24 08/26/24 History monohydrate/macrocrystals 100 mg capsule oxycodone 5 mg tablet 5 mg PO Q8H PRN pain (scale score 08/26/24 Rx 7-10) #7 tabs levofloxacin 500 mg tablet 500 mg PO DAILY #3 tabs 09/03/24 Rx tamsulosin 0.4 mg capsule 0.4 mg PO DAILY #30 caps 09/12/24 Rx Allergies Allergy/AdvReac Type Severity Reaction Status Date / Time scallops Allergy Severe Anaphylaxis Verified 07/23/24 15:18 codeine Allergy Unknown UNK BY PT Verified 07/23/24 15:18 Penicillins Allergy Unknown UNK BY PT Verified 07/23/24 15:18 Nijpcii-MHE-LmJ Reductase Allergy Unknown UNK BY PT Verified 07/23/24 15:18 Inhibitor [Rfwtlpv-Evl-Srn Reductase Inhibitor] Sulfa (Sulfonamide Allergy Unknown UNK BY PT Verified 07/23/24 15:18 Antibiotics) UNKNOWN ANTIBIOTIC Allergy Unknown Uncoded 07/23/24 15:18 Review of Systems Review of Systems Narrative: CONSTITUTIONAL: Denies weight loss, fevers, chills. HEENT: Denies change in vision, hearing. RESP: Denies SOB, cough. CV: Denies palpations, CP. GI: Denies abdominal pain, diarrhea. : Denies dysuria, hematuria, inability to void. MSK: Denies myalgia, joint pain. SKIN: Denies rash, pruritus. NEURO: Denies headache, syncope. PSYCH: Denies recent change in mood, anxiety, depression. Exam Vital Signs (past 8 hours): - 09/17/24 02:13 09/17/24 02:13 09/17/24 02:30 Temperature Pulse Rate 66 64 Respiratory Rate Blood Pressure 158/68 H Pulse Oximetry 98 94 Oxygen Delivery Method 09/17/24 08:30 Temperature 97.8 F Pulse Rate 61 Respiratory Rate 18 Blood Pressure 163/72 H Pulse Oximetry 96 Oxygen Delivery Method Room Air Oxygen Delivery Method Room Air Narrative Exam Narrative: GEN: Alert and oriented X3. No acute distress. Well-nourished. EYES: PERRLA, EOMI. HENT: Moist mucus membranes, no scleral icterus, normal neck ROM. RESP: Unlabored breathing, equal rise and fall of chest bilaterally, no cyanosis appreciated. CV: No peripheral edema, unremarkable heart rate. ABD: Soft, non-tender, non-distended, no palpable masses. : No CVAT bilaterally. EXT: No edema, clubbing or cyanosis. SKIN: No rashes or lesions. NEURO: No focal neurologic deficits, CN II-XII grossly intact. PSYCH: Cooperative, appropriate mood and affect. Objective Labs 09/16/24 21:36 09/16/24 21:36 Labs: Laboratory Results - last 24 hr 09/16/24 09/17/24 21:36 02:13 WBC 13.0 H RBC 4.39 Hgb 13.3 Hct 39.6 MCV 90.4 MCH 30.4 MCHC 33.6 RDW 14.0 Plt Count 192 Neut % (Auto) 82.9 H Lymph % (Auto) 11.1 L Pepin % (Auto) 4.3 Eos % (Auto) 1.1 L Baso % (Auto) 0.6 Neut # (Auto) 14088 H Lymph # (Auto) 1400 Pepin # (Auto) 600 Eos # (Auto) 100 Baso # (Auto) 100 Sodium 141 Potassium 3.8 Chloride 108 H Carbon Dioxide 26 BUN 25 H Creatinine 1.03 Estimated GFR 54 L BUN/Creatinine Ratio 24.3 H Glucose 154 H Calcium 9.6 Total Bilirubin 0.5 AST 35 ALT 24 Alkaline Phosphatase 99 Total Protein 7.0 Albumin 4.0 Globulin 3.0 Albumin/Globulin Ratio 1.3 Lipase 174 Urine Color Yellow Urine Appearance Cloudy Urine pH 7.0 Ur Specific [place] 1.015 Urine Protein 1+ H Urine Glucose (UA) Negative Urine Ketones 1+ H Urine Occult Blood 1+ H Urine Nitrate Negative Urine Bilirubin Negative Urine Urobilinogen 0.2 Ur Leukocyte Esterase 1+ H Urine RBC 1-5/hpf D Urine WBC 5-10/hpf H Ur Squamous Epith Cells 1-5 /hpf Urine Bacteria Many (>30) H Ur Culture Indicated? Specimen cultured Vol Urine Centrifuged 10ml (spun) [facility] Medical History Hx: UTI (urinary tract infection) Dinesh ulcer Iliotibial band syndrome, right leg Primary osteoarthritis involving multiple joints Right hip pain Age-related osteoporosis without current pathological fracture Do not resuscitate Corneal epithelial dystrophy of right eye Mixed hyperlipidemia Essential hypertension Gait instability Hiatal hernia without gangrene and obstruction Anemia due to chronic blood loss History of melanoma Mitral valve prolapse Restless leg syndrome Stenosis, cervical spine Osteopenia Measles Chicken pox Hearing loss Cataracts, bilateral Partial blindness Fibroids History of urinary incontinence Kidney stones Colon polyps Aortic stenosis Melanoma Left supraspinatus tendinitis GERD without esophagitis Hiatal hernia Hypothyroidism Mitral regurgitation History of optic neuritis Osteoporosis Iron (Fe) deficiency anemia Incontinence of urine Heart murmur Multiple sclerosis Surgical History S/P cystoscopy with ureteral stent placement (07/12/24) S/P total right hip arthroplasty S/P cystoscopy with ureteral stent placement (06/28/24) Anesthesia Family History Mother Stroke Social History details: (Abbe - 05/10/2023), grown children, retired household members: none Tobacco & Substance Use Smoking Status: Never smoker alcohol intake: current Assessment & Plan Assessment and plan (1) Right ureteral calculus: Status: Acute Plan: 84 y/o F noted to have a few small distal right ureteroliths resulting in upstream moderate to severe right hydroureteronephrosis in the setting of a urinary tract infection and a few additional right non-obstructing nephroliths (large right lower pole calculus) s/p a cystoscopy w/ right ureteral stent placement on 28 Jun 2024 as well as a right ureteroscopy w/ laser lithotripsy and right ureteral stent exchange on 12 Jul 2024. Discussed that after lasering for more than 60 minutes, visibility became very poor secondary to her very large right lower pole calculus and the decision was made to repeat her ureteroscopy to render her stone free. Unfortunately, her second look ureteroscopy was notable for inability to access or reposition the aforementioned large right lower pole calculus and her right ureteral stent was exchanged. She is now noted to have distal migration of the aforementioned large stone into her right distal ureter with resultant upstream moderate to severe hydroureteronephrosis and a questionably infected appearing UA. Discussed the need for a cystoscopy with right ureteral stent placement and a right ureteroscopy with laser lithotripsy in the future to remove all of her stone after a proper treatment of antibiotics. Discussed risks of the procedure to include pain, bleeding, infection, injury to urethra/bladder/ureter, inability to access the ureter requiring discussion with Interventional Radiology regarding a possible ureteral stent placement in an antegrade fashion vs a possible nephroureteral stent and/or percutaneous nephrostomy tube, urinary tract infection, need for emergent open repair of bladder and/or ureter. Informed consent was obtained today. She will go home with a 7 day course of antibiotics. Time-Based Coding :: [TOTAL MINUTES] spent with patient and on the chart (including review of chart, obtaining history, exam, reviewing outside data, placing orders, documenting exam and treatment plan, and counseling patient) on [DATE]. PROFEE Charge Codes Inpatient or Observation consultation: 37547
[2024-09-17] MEDS: levoFLOXacin 500 MG/100 ML PIGGYBACK 100 MG IV (09:41)
--- NOTE | 2024-09-17 09:50 | SUR.OPER ---
Lithotomy on padded OR bed, head on pillow, arms secured on padded arm boards at <90 degrees abduction. Legs secured in padded yellow fins stirrups.
--- NOTE | 2024-09-17 10:21 | P.OP_ITS ---
Operative Date/Time/Diagnoses Date of procedure: 09/17/24 Time of procedure: 09:45 Pre-op diagnosis: Right ureteral stone, urinary tract infection Post-op diagnosis: same Procedure & Clinicians Procedure: Cystoscopy Right ureteral stent placement Intraoperative interpretation of fluoroscopic images, total time < 1 hour Same procedure as scheduled: Yes Indications: 84 y/o F noted to have a few small distal right ureteroliths resulting in upstream moderate to severe right hydroureteronephrosis in the setting of a urinary tract infection and a few additional right non-obstructing nephroliths (large right lower pole calculus) s/p a cystoscopy w/ right ureteral stent placement on 28 Jun 2024 as well as a right ureteroscopy w/ laser lithotripsy and right ureteral stent exchange on 12 Jul 2024. Discussed that after lasering for more than 60 minutes, visibility became very poor secondary to her very large right lower pole calculus and the decision was made to repeat her ureteroscopy to render her stone free. Unfortunately, her second look ureteroscopy was notable for inability to access or reposition the aforementioned large right lower pole calculus and her right ureteral stent was exchanged. She is now noted to have distal migration of the aforementioned large stone into her right distal ureter with resultant upstream moderate to severe hydroureteronephrosis and a questionably infected appearing UA. Discussed the need for a cystoscopy with right ureteral stent placement and a right ureteroscopy with laser lithotripsy in the future to remove all of her stone after a proper treatment of antibiotics. Surgeon: Eric Serrano Click Yes if Unassisted: Yes Anesthesia Type: General Operative Notes Findings: Very large distal right ureteral stone, retained contrast within right renal collecting system, severe right hydroureteronephrosis, changes consistent with a urinary tract infection Closure Type: not applicable Specimen(s): none sent Estimated Blood Loss (mL): 2 Procedure in detail: Patient was identified in the preoperative holding area and consent confirmed. She was then brought to the operating room where general anesthesia was induced.? She was then placed in the low lithotomy position. She was then prepped and draped in the usual sterile fashion. A surgical timeout was conducted and all were in agreement. Access to the bladder was obtained via a 21Fr cystoscope.? Cloudy urine was immediately noted within the bladder.? The right ureteral orifice was easily visualized and a 0.035 sensor tip ureteral guidewire was advanced through the 5Fr ureteral catheter and into the right renal collecting system.? A pyelogram was then obtained and she was noted to have retained contrast from her CT Abd/Pel within her right renal collecting system with severe right hydroureteronephrosis proximal to her large distal right ureteral stone.? The ur eteral guidewire was readvanced through the ureteral catheter and into the right renal pelvis.? The ureteral catheter was then removed.? A 6Fr multi-length JJ ureteral stent without strings was then advanced over the ureteral guidewire and into the right renal collecting system.? Upon removal of the ureteral guidewire, a good curl was appreciated within the right renal pelvis upon fluoroscopy and visually within the bladder.? The bladder was then drained and the cystoscope was removed.? Anesthesia was reversed, she was extubated in the OR and transferred to the PACU in stable condition for recovery. Complications: none Post-operative Condition: stable Disposition: PACU Plan for aftercare: Discharge home from PACU. Will return in 2-12 weeks for a cystoscopy, right ureteroscopy, laser lithotripsy and right ureteral stent exchange.
== END 2024-09-17 11:04 | disposition home or self-care (01) ==
LOC: ED 09-17 08:16 → AC 09-17 08:16
PROVIDERS: Emergency Medicine; Urology; Admitting Provider Internal Medicine; Emergency Provider Emergency Medicine; PCP Internal Medicine; Referring Provider Emergency Medicine; Visit Provider Internal Medicine
PROC: (CPT 52332; principal; 2024-09-17 10:00)
DX: N13.2 Hydronephrosis with renal and ureteral calculous obstruction (principal); N39.0 Urinary tract infection, site not specified; B96.20 Unspecified Escherichia coli [E. coli] as the cause of diseases classified elsewhere
CPT/HCPCS: 52332; 36415; 74018; 74177; 76000; 80053; 81001; 83690; 85025; 87077; 87086; 87186; 96361; 96365; 96375; 99284; G0378; C2617; J0696; J1885; J1956; J2405; J2704; J3010; Q9967

== ENCOUNTER 2024-10-04 06:16 | Day surgery (SDC) | payer MEDICARE, SELFPAY ==
[2024-06-28 11:21] VITALS: BMI 25.4
[2024-09-27 13:19] VITALS: BMI 24.4
[2024-10-04] VITALS (7 sets, daily range): BP systolic 106–118; BP diastolic 43–69; PULSE 56–82; RESP 12–152; TEMP 36.2–36.4; O2SAT 95–98; BMI 25.2
--- NOTE | 2024-10-04 | DI.RAD.S_ITS ---
PROCEDURE: XR ABDOMEN 1V INDICATIONS: OR TECHNIQUE: 3 intra-operative images acquired by the Urology service. COMPARISON: [facility], CR, XR ABDOMEN 1V, 09/17/2024, 9:49. FINDINGS: Intraoperative fluoroscopic images shows markedly distended right renal collecting system and right renal pelvis as well as proximal right ureter. Under fluoro guidance, a right-sided ureteral stent is placed. IMPRESSION: Intraoperative fluoroscopic images shows right-sided hydronephrosis and hydroureter with placement of a right-sided ureteral stent. Dictated by: Ajay Byrd M.D. on 10/04/2024 at 10:39 Approved by: Ajay Byrd M.D. on 10/04/2024 at 10:39
[2024-10-04] MEDS: LACTATED RINGERS 1,000 ML 21 ML IV (06:51)
--- NOTE | 2024-10-04 07:33 | PM.PREOP ---
Pre-operative Note COVID-19 COVID-19 status: Not tested Interval Note History & Physical reviewed/Exam performed by Physician: Yes Changes to H&P: No H&P completed within 30 days and has changed as indicated here:: No changes to her health in the interim since her consultation note on 17 Sep 2024 other than she was treated with a cystoscopy and right ureteral stent and returns today for definitive stone management via a cystoscopy, right ureteroscopy, laser lithotripsy and right ureteral stent exchange.
--- NOTE | 2024-10-04 08:13 | SUR.OPER ---
Lithotomy on padded OR bed, head on pillow, arms secured on padded arm boards at <90 degrees abduction. Legs secured in padded yellow fins stirrups.
[2024-10-04] MEDS: iopamidoL 30 ML VIAL INJ (09:04)
--- NOTE | 2024-10-04 09:05 | PM.OP.1 ---
Operative Date/Time/Diagnoses Date of procedure: 10/04/24 Time of procedure: 08:00 Pre-op diagnosis: Right ureteral stone Post-op diagnosis: same Procedure & Clinicians Procedure: Cystoscopy Right retrograde ureteropyelogram Right ureteroscopy, laser lithotripsy Right ureteral stent exchange Intraoperative interpretation of fluoroscopic images, total time < 1 hour Same procedure as scheduled: Yes Indications: 84 y/o F noted to have a few small distal right ureteroliths resulting in upstream moderate to severe right hydroureteronephrosis in the setting of a urinary tract infection and a few additional right non-obstructing nephroliths (large right lower pole calculus) s/p a cystoscopy w/ right ureteral stent placement on 28 Jun 2024 as well as a right ureteroscopy w/ laser lithotripsy and right ureteral stent exchange on 12 Jul 2024. Discussed that after lasering for more than 60 minutes, visibility became very poor secondary to her very large right lower pole calculus and the decision was made to repeat her ureteroscopy to render her stone free. Unfortunately, her second look ureteroscopy was notable for inability to access or reposition the aforementioned large right lower pole calculus and her right ureteral stent was exchanged. She was noted to have distal migration of the aforementioned large stone into her right distal ureter with resultant upstream moderate to severe hydroureteronephrosis and a questionably infected appearing UA in late August of 2024 and underwent a cystoscopy with right ureteral stent placement. She returns today for definitive stone management via a cystoscopy, right ureteroscopy, laser lithotripsy and right ureteral stent exchange. Surgeon: Eric Serrano Click Yes if Unassisted: Yes Anesthesia Type: General Operative Notes Findings: Large distal right ureterolith Closure Type: not applicable Specimen(s): other (right ureteral stone) Estimated Blood Loss (mL): 2 Blood products transfused: none Procedure in detail: Patient was identified in the preoperative holding area and consent confirmed. She was then brought to the operating room where general anesthesia was induced.? She was placed in the low lithotomy position. She was then prepped and draped in the usual sterile fashion. A surgical timeout was conducted and all were in agreement. Access to the bladder was obtained via a 30 degree cystoscope.? Complete cystoscopy was then performed and no concerning bladder masses or lesions were appreciated.? Bilateral ureteral orifices were easily identified and noted to be orthotopic in nature.? The previously placed right ureteral stent was easily visualized and externalized. A 0.035 sensor tip ureteral guidewire was then advanced through the ureteroscope and into the right renal collecting system. A semirigid ureteroscope was easily advanced into her right ureter alongside the guidewire and to the level of the stone.? A 375 micron laser fiber was then utilized to perform laser lithotripsy.? All stone fragments >1mm in size were removed via the stone basket and sent for chemical analysis.? The ureter was then directly visualized upon removal of the ureteroscope and noted to be stone free.? A 7Fr multi-length JJ ureteral stent with strings was then advanced over the ureteral guidewire.? Upon removal of the guidewire, a good curl was noted in the right renal pelvis and the bladder using fluoroscopy.? The bladder was then drained.? Anesthesia was reversed, she was extubated in the OR and transferred to the PACU in stable condition for recovery. Complications: none Post-operative Condition: stable Disposition: PACU Plan for aftercare: Discharge home from PACU. Will return to Urology clinic in 3 months for a RBUS and stone analysis review.
[2024-10-04] MEDS: PHENAZOPYRIDINE 100 MG TABLET 200 MG PO (09:14)
[2024-10-04] MEDS: ACETAMINOPHEN 325 MG TABLET 975 MG PO (09:14)
[2024-10-12 11:09] LABS: Ca oxalate monohydr 100 % (.); Size 2x1 mm (.); Stone Analysis Source Ureter (.)
== END 2024-10-04 10:03 | disposition home or self-care (01) ==
PROVIDERS: PCP Internal Medicine; Referring Provider Urology; Visit Provider Urology
PROC: (CPT 52356; principal; 2024-10-04 07:45)
DX: N20.1 Calculus of ureter (principal); G35 Multiple sclerosis; M81.0 Age-related osteoporosis without current pathological fracture; E78.2 Mixed hyperlipidemia; I10 Essential (primary) hypertension; K44.9 Diaphragmatic hernia without obstruction or gangrene; D50.0 Iron deficiency anemia secondary to blood loss (chronic); I34.1 Nonrheumatic mitral (valve) prolapse; G25.81 Restless legs syndrome; E03.9 Hypothyroidism, unspecified; Z85.820 Personal history of malignant melanoma of skin
CPT/HCPCS: 52356; 74018; 74420; 76000; 82365; A9270; C2617; J2405; J2704; J3010; Q9967

== ENCOUNTER → 2024-11-25 06:59 | Outpatient (CLI) | payer MEDICARE, SELFPAY ==
[2024-06-28 11:21] VITALS: BMI 25.4
--- NOTE | 2024-11-25 07:01 | DI.US.S_ITS ---
PROCEDURE: US RENAL COMPLETE INDICATIONS: kidney stone, TECHNIQUE: Real-time scanning was performed of the kidneys and bladder, with image documentation. COMPARISON: None. FINDINGS: Kidneys: Right left kidneys normal in size measuring 9.7 cm and 11.0 cm in length respectively. Left renal cyst with nonobstructive calculus measures 4.3 x 4.2 x 3.7 Renal cortical echotexture is normal. No hydronephrosis or nephrolithiasis. No suspicious solid mass lesions. Bladder: Partially decompressed. Unremarkable. Miscellaneous: No free pelvic fluid. Incidental 7 cm hepatic cyst IMPRESSION: Left renal cyst contains dependent nonobstructive calcification. No hydronephrosis bilaterally Approved by: Anson Salas M.D. on 11/25/2024 at 13:43
== END ==
PROVIDERS: PCP Internal Medicine; Referring Provider Urology; Visit Provider Urology
DX: N13.2 Hydronephrosis with renal and ureteral calculous obstruction (principal); N28.1 Cyst of kidney, acquired
CPT/HCPCS: 76770